=== PATIENT | female | born 1945 | race Caucasian/White ===

== ENCOUNTER 2018-03-27 15:30 | Outpatient (RCR) | payer MEDICARE, OTHER, SELFPAY | END 2018-04-08 16:00 | disposition home or self-care (01) | LOC: PT 15:30 | PROVIDERS: Visit Provider Orthopaedic Surgery | DX: M51.36 Other intervertebral disc degeneration, lumbar region (principal); M50.30 Other cervical disc degeneration, unspecified cervical region | CPT/HCPCS: 97014; 97110; 97163; G0283 ==

== ENCOUNTER → 2018-09-18 12:37 | Outpatient (CLI) | payer MEDICARE, OTHER, SELFPAY ==
--- NOTE | 2018-09-18 12:45 | XR_ITS ---
XR DEXA axial skeleton HISTORY: ITS.REASON: OSTEOPENIA ORDERING PHYSICIAN: Amber Rawls PATIENT AGE: 73 years COMPARISON: 09/01/2012 FINDINGS: The BMD measured at the Right femoral neck is 0.856 g/cm squared with a T score of -1.3. This is considered Osteopenic according to the World Health Organization criteria. Fracture risk is Moderate. Treatment is advised. The L1 L4 density has a T score -0.4 enhanced decreased by 2%. The overall mean hip density has decreased by 4.5 IMPRESSION: Osteopenia with moderate fracture risk. Treatment is advised. Suggest follow-up exam August 2020
== END ==
PROVIDERS: PCP Family Medicine; Visit Provider Family Medicine
DX: M85.89 Other specified disorders of bone density and structure, multiple sites (principal)
CPT/HCPCS: 77080

== ENCOUNTER → 2018-10-02 12:53 | Outpatient (CLI) | payer MEDICARE, OTHER, SELFPAY ==
--- NOTE | 2018-10-02 13:01 | XR_ITS ---
XR chest 2V HISTORY: ITS.REASON: CHEST PAIN ORDERING PHYSICIAN: Amber Rawls PATIENT AGE: 73 years COMPARISON: 01/25/2015 FINDINGS: The cardiomediastinal silhouette and pulmonary vascularity are within normal limits. The lungs are clear without infiltrates, suspicious nodules, or pleural effusions. There is mild mid thoracic curvature convex right. There is mild thoracic kyphosis not significantly changed. No acute bony abnormalities. IMPRESSION: No change with no acute finding
--- NOTE | 2018-10-02 13:01 | US_ITS ---
US breast RT complete INDICATION: Tenderness of left breast, history of breast cancer with mastectomy ORDERING PHYSICIAN: Amber Rawls PATIENT AGE: 73 years COMPARISON: None TECHNIQUE: Right breast ultrasound with axilla FINDINGS: No solid or cystic masses are evident. Patient has had a prior mastectomy with breast implant present. IMPRESSION: No suspicious lesions apparent by ultrasound. Prior mastectomy with implant present BI-RADS Category: 2 Benign Finding(s) Follow-up suggested as clinically warranted. Correlation with physical exam needed. (A letter has been sent to the patient regarding results of the study.)
== END ==
PROVIDERS: PCP Family Medicine; Visit Provider Family Medicine
DX: N64.4 Mastodynia (principal); Z85.3 Personal history of malignant neoplasm of breast
CPT/HCPCS: 71046; 76641

== ENCOUNTER → 2019-03-03 12:52 | Outpatient (POV) | payer MEDICARE, OTHER, SELFPAY | PROVIDERS: Visit Provider Dermatology | DX: Z00.00 Encounter for general adult medical examination without abnormal findings (principal) ==

== ENCOUNTER → 2019-12-18 10:01 | Outpatient (CLI) | payer MEDICARE, OTHER, SELFPAY ==
--- NOTE | 2019-12-18 | US_ITS ---
APPROVED REPORT Exam Type: Lower Extremity Segmental Pressures Digital Product Manager: Lashay Lopez RT(R) Indications Claudication: Bilaterally Current Smoker PAIN SAM LE'S Risk Factors Hypertension CAD Hyperlipidemia TIA/CVA History Pressures/Indices Right Indices Left Indices Brachial 158.00 mmHg Brachial 164.00 mmHg Low Thigh 146.00 mmHg 0.89 Low Thigh 153.00 mmHg 0.93 Calf 165.00 mmHg 1.01 Calf 163.00 mmHg 0.99 Ankle(PT) 165.00 mmHg 1.01 Ankle(PT) 160.00 mmHg 0.98 Ankle(DP) 160.00 mmHg 0.98 Ankle(DP) 157.00 mmHg 0.96 Digit 90.00 mmHg 0.55 Digit 113.00 mmHg 0.69 Findings RT MELECIO:1.01 LT MELECIO:0.98 RT TBI:0.55 LT TBI:0.69 NORMAL PULSES BILATERAL NORMAL WAVEFORMS BILATERAL Conclusion RT MELECIO:1.01 LT MELECIO:0.98 RT TBI:0.55 LT TBI:0.69 NORMAL PULSES BILATERAL NORMAL WAVEFORMS BILATERAL Normal appearing resting noninvasive lower extremity arterial study. Electronically signed by : César Archibald MD 12/18/2019 15:47:37
== END ==
PROVIDERS: PCP Family Medicine; Visit Provider Orthopaedic Surgery
DX: I73.9 Peripheral vascular disease, unspecified (principal)
CPT/HCPCS: 93923

== ENCOUNTER → 2020-02-11 13:31 | Outpatient (CLI) | payer MEDICARE, OTHER, SELFPAY ==
--- NOTE | 2020-02-11 13:38 | XR_ITS ---
PROCEDURE: XR CHEST 2V CLINICAL HISTORY: COUGH Cough and chest soreness, history of breast cancer, smoker COMPARISON: CR CXR CHEST(2 VIEWS-NOT PORTABLE) from 06/16/2012 CT CTAC CTA-CHEST from 06/18/2012 CR CXR CHEST(2 VIEWS-NOT PORTABLE) from 03/28/2013 CR CXR CHEST(2 VIEWS-NOT PORTABLE) from 01/25/2015 FINDINGS: The cardiomediastinal silhouette and pulmonary vascularity are within normal limits. Attenuation is present in the lower lung zones bilaterally from breast implants. No lobar consolidation or collapse. Calcified granuloma is present in the left lower lobe. Thoracic kyphosis with multilevel thoracic degenerative changes. No acute fracture or dislocation. IMPRESSION: No change with no acute finding. Dictated by: César Archibald MD 02/11/2020 14:25 César Archibald MD in [place] 02/11/2020 14:25
== END ==
PROVIDERS: PCP Family Medicine; Visit Provider Family Medicine
DX: R05 Cough (principal); R07.9 Chest pain, unspecified
CPT/HCPCS: 71046

== ENCOUNTER 2020-08-09 13:00 | Outpatient (RCR) | payer MEDICARE, OTHER, SELFPAY | END 2020-08-30 13:47 | disposition home or self-care (01) | LOC: PT.CARL 13:00 | PROVIDERS: PCP Family Medicine; Visit Provider Orthopaedic Surgery | DX: M25.571 Pain in right ankle and joints of right foot (principal) | CPT/HCPCS: 97110; 97116; 97140; 97163 ==

== ENCOUNTER → 2020-10-24 10:30 | Outpatient (CLI) | payer MEDICARE, OTHER, SELFPAY ==
--- NOTE | 2020-10-24 10:33 | XR_ITS ---
PROCEDURE: XR DEXA AXIAL SKELETON CLINICAL HISTORY: ANKLE FRACTURE, SCREENING FOR OSTEOPOROSIS COMPARISON: No exams were available for comparison FINDINGS: The right hip BMD is 0.785 with a T-score of -0.6. The left hip BMD is 0.741 with a T-score of -1.0. The lumbar spine BMD is 0.983 with a T-score of -0.6. IMPRESSION: This patient is considered normal according to the World Health Organization criteria. Fracture risk is low. Based on these results a follow-up exam is recommended in 2 year. Dictated by: César Archibald MD 10/24/2020 20:32 César Archibald MD in [place] 10/25/2020 08:14
--- NOTE | 2020-10-24 10:34 | XR_ITS ---
PROCEDURE: XR CHEST 2V CLINICAL HISTORY: COUGH Smoker COMPARISON: CT CTAC CTA-CHEST from 06/18/2012 CR CXR CHEST(2 VIEWS-NOT PORTABLE) from 03/28/2013 CR CXR CHEST(2 VIEWS-NOT PORTABLE) from 01/25/2015 CR XR CHEST 2V from 02/11/2020 FINDINGS: The cardiomediastinal silhouette and pulmonary vascularity are within normal limits. Bilateral breast implants. Minimal atelectatic or fibrotic change in the left lung base. Degenerative changes thoracic spine with mild kyphosis IMPRESSION: Minimal left basilar atelectatic or fibrotic change otherwise negative Dictated by: César Archibald MD 10/24/2020 12:38 César Archibald MD in [place] 10/24/2020 12:38
== END ==
PROVIDERS: PCP Family Medicine; Visit Provider Family Medicine
DX: R05 Cough (principal); Z13.820 Encounter for screening for osteoporosis; Z78.0 Asymptomatic menopausal state; M25.571 Pain in right ankle and joints of right foot
CPT/HCPCS: 71046; 77080

== ENCOUNTER → 2021-01-30 14:53 | Outpatient (POV) | payer MEDICARE, OTHER, SELFPAY ==
[2021-01-30 15:34] VITALS: BP 132/65; PULSE 63; RESP 18; O2SAT 97; BMI 22.3
--- NOTE | 2021-01-31 08:20 | HMH.PMCON ---
Assessment and Plan (1) Low back pain Status: Chronic Category: Medical Code(s): M54.50 - Low back pain, unspecified (2) Lumbar radiculopathy Status: Chronic Category: Medical Code(s): M54.16 - Radiculopathy, lumbar region - Assessment and plan all Dx Assessment and Plan for all problems:: The patient has reported that she has taken Lyrica and gabapentin in the past with no significant relief. She is on Plavix and unable to take anti-inflammatories. She has tried physical therapy greater than 6 weeks and continues with home stretching and ice and heat therapies. The patient has also tried injections with no relief. Patient was very difficult to have a conversation with today, as she was unable to focus or answer questions appropriately today. Per the patient's own admission, she would fail a drug test today due to recent medications that she has taken. She was unable to verbalize the type of medication that she did take. Patient was advised we will not be prescribing oral medications. We will send her for psychological evaluation to determine if she is an appropriate candidate for spinal cord stimulation. Patient will not be a candidate for intrathecal therapy, as she did admit to taking medication inappropriately today. We will see her back after her psychological evaluation. We will request the patient's MRI from [facility]. We did not receive the patient's MRI in her referral packet. Patient has been instructed to contact the clinic with any concerns before the next appointment. Dr. Wynn has reviewed this note and agrees with this plan of care. This note was dictated using voice recognition software and make contain errors or omissions. HPI - Data of Consult Patient: new to practice Consult date: 01/30/21 Requesting Physician: Peyton Shah APRN - Consult Narrative Reason for consult: Back pain, foot pain History of present illness: Ms. Acuna is a 76 year old female who presents today for consultation for chronic low back bilateral foot pain. The patient was referred to us by Reyna Dee. Patient was previously seen by Dr. Ho in [facility] for pain management. Patient reports that the provider that she was previously seeing has relocated to [facility]. As a result, the patient did not want to travel to [place] to be seen. Patient says she has had chronic low back pain for many years. The pain does radiate into bilateral lower extremities and feet. While she does have significant back pain, she says most of her pain is in her feet. She describes the pain as throbbing and burning in nature. She says that she has had injections in the past which did not give her any relief. She is unable to verify the type of injections that she has had. She also says that she has tried ice and heat therapies as well as continued home stretching. She is on Plavix therapy and is unable to take anti-inflammatories. Patient immediately reports during conversation that she will follow drug test if tested today. Patient is unable to verify that the medication that she did take. She says that it was left upper medicine . Patient has been advised that we will not be prescribing oral medications. Patient is difficult to carry a conversation with today, as she is unable to focus on tasks at hand or questions being asked of her. She is very vague in answering questions. She does report that she has had imaging performed, however we only received an x-ray of the patient's ankle from 10/24/2020. Patient says that she is unsure if she would like to proceed with any type of injective therapy since she did not get relief in the past. She does rate her pain an 8 out of 10 today. She says that she was given information regarding spinal cord stimulation at her previous pain management clinic and would like to pursue this. CC: Peyton Shah APRN [facility] History I have reviewed the patient's past medical histo
== END ==
PROVIDERS: Visit Provider Clinical Nurse Specialist Family Health
DX: M54.50 Low back pain, unspecified (principal); M54.16 Radiculopathy, lumbar region
CPT/HCPCS: 99202; G0463

== ENCOUNTER → 2021-02-06 14:08 | Outpatient (CLI) | payer MEDICARE, OTHER, SELFPAY | PROVIDERS: Visit Provider Surgery | DX: Z01.812 Encounter for preprocedural laboratory examination (principal); Z20.822 Contact with and (suspected) exposure to COVID-19; Z12.11 Encounter for screening for malignant neoplasm of colon | CPT/HCPCS: C9803; U0003; U0005 ==

== ENCOUNTER 2021-02-09 08:26 | Day surgery (SDC) | payer MEDICARE, OTHER, SELFPAY ==
[2021-02-07 09:39] VITALS: BMI 21.7
[2021-02-09 08:48] VITALS: BP 127/73; PULSE 81; RESP 16; TEMP 36.6; O2SAT 95
[2021-02-09 09:50] VITALS: BP 109/59; PULSE 81; RESP 18; TEMP 36.1; O2SAT 98
--- NOTE | 2021-02-09 09:50 | HMH.SCOPE ---
- Procedure: Date: 02/09/21 Patient Date of :: 1945 Procedure Performed:: Colonoscopy with polypectomy by means other than snare Indications:: History of large complex adenomatous polyp of the right colon status post snare excision/tattoo. Residual adenomatous changes noted on follow-up colonoscopy. Most recent colonoscopy (December 2018) revealed no residual adenomatous changes. Performing Provider:: Woodrow Tyson MD Referring Provider:: . Sedation:: Monitored anesthesia care Procedure:: After informed consent was obtained the patient was taken to the endoscopy suite. Sedation ensued after the patient was transferred to the left lateral decubitus position. Pulse, blood pressure, and oxygen saturation were monitored throughout the procedure. Digital rectal exam revealed no significant abnormality. The colonoscope was placed in position. The entire colon was evaluated. The colonoscope was carefully removed and the patient was transferred to recovery in stable condition. Please see findings and specimens below for detail. Findings:: Bowel preparation relatively fair Fairly significant spasticity/tortuosity Small right colon polyp Tattoo site appeared normal Specimens:: Small right colon polyp Recommendations:: Timing of repeat colonoscopy is pending pathology but will likely be around 3 years secondary to history of large complex polyps. Complications:: No immediate Estimated blood obtained (mL): 1
[2021-02-09 09:54] VITALS: O2SAT 94
[2021-02-09 10:00] VITALS: BP 118/65; PULSE 80; RESP 18; O2SAT 98
[2021-02-09 10:15] VITALS: BP 136/75; PULSE 92; RESP 18; O2SAT 97
--- NOTE | 2021-02-09 13:43 | P.PN_ITS ---
[facility] Anesthesia Checklist - Structural Data Admitted From: Home Planned Operative Procedure/s: colonoscopy Consent for Planned Operative Procedure(s) Verified: Yes - Additional verifications Anesthesia Reactions: No - Airway Assessment C-Spine Mobility Assessed: Yes TMJ Mobility Assessed: Yes Dentition: Good Dentition - Neurological Assessment Level of Consciousness: Awake, Alert, Appropriate - Anesthesia Plan Anesthesia Risk discussed: Yes ASA Class: III Anesthesia Type: MAC [facility] History I have reviewed the patient's past medical history: Yes Medical History: Reports:: Anxiety, Cancer (breast cancer), Cerebrovascular Accident, Hyperlipidemia, Hypertension Denies:: Diabetes Mellitus Type 1, Diabetes Mellitus Type 2, Internal Pacemaker, Lung Disease, MRSA, Seizures *Have you ever received a pneumonia vaccine?: Yes *Have you received a flu vaccine this season?: No Other Medical History: Reports: Arthritis, Other Anesthesia experience/problems:: none Laterality Cases: Bilateral: Breast Biopsy, Lumpectomy, Mastectomy Other Surgeries: Yes: No Previous Surgery, Appendectomy, Cancer Surgery, Cholecystectomy, Colonoscopy, EGD, Other. No: Pacemaker Amputation: No Fractures: Yes (rt ankle) - *Social History Last grade of school completed: Advanced degree Smoking Status: Current every day smoker Tobacco Type: cigarettes # Packs/Day (cigarettes): 1 Alcohol Intake: never Alcohol Intake Frequency:: holidays/special occasions only Substance Use Type: denies use *Occupational Status:: retired Housing: house Household Members: none *Travel in the last 8 weeks: None - Psychiatric History Pschychiatric History:: Reports:: Anxiety Family Hx:: Cancer
== END 2021-02-09 10:22 | disposition home or self-care (01) ==
LOC: OUTP 08:31
PROVIDERS: PCP Family Medicine; Visit Provider Surgery
PROC: 0DJD8ZZ Inspection of Lower Intestinal Tract, Via Natural or Artificial Opening Endoscopic (ICD-10-PCS; principal; 2021-02-09 09:30)
DX: Z12.11 Encounter for screening for malignant neoplasm of colon (principal); K58.9 Irritable bowel syndrome, unspecified; K63.5 Polyp of colon; Z86.010 Personal history of colon polyps; F41.9 Anxiety disorder, unspecified; E78.5 Hyperlipidemia, unspecified; I10 Essential (primary) hypertension; M19.90 Unspecified osteoarthritis, unspecified site; Z85.3 Personal history of malignant neoplasm of breast; Z86.73 Personal history of transient ischemic attack (TIA), and cerebral infarction without residual deficits; Z72.0 Tobacco use; Z80.9 Family history of malignant neoplasm, unspecified
CPT/HCPCS: 45380; 88305

== ENCOUNTER → 2021-03-27 08:59 | Outpatient (POV) | payer MEDICARE, OTHER, SELFPAY ==
[2021-03-27 09:13] VITALS: BP 153/76; PULSE 69; RESP 18; O2SAT 96; BMI 21.9
--- NOTE | 2021-03-27 09:24 | HMH.PAINSOAP ---
[facility] Pain Management SOAP Note Subjective:: Patient is a pleasant 76-year-old female who comes in here today for follow-up. Patient is currently being treated for chronic low back pain, degenerative disease of lumbar spine with lumbar radiculopathy. Patient was last seen here on January 30, 2021 where we discussed that she is a good candidate for spinal cord stimulator. Patient has tried and failed injective therapy, oral medications, and physical therapy for greater than 6 weeks. Patient is on plavix and it is contraindicated to give the patient any anti-inflammatories. We have been referred the patient for psychiatric eval for the spinal cord stimulator and has been deemed appropriate for the spinal cord stimulator. Patient is currently not a surgical candidate per neurosurgery. Today, patient is still complaining of chronic pain. She says that she is almost out of her norco that is an old prescription. I have talked to the patient that we don't typically order oral medications to our patients. Patient rates her pain as 6/10 today. Her Patrick is [phone] with an active morphine equivalent of 0. Review of Systems General: No recent weight changes, no fever, no sleep disturbances Respiratory: No cough, no shortness of air, no recurring pulmonary infections Cardiovascular/peripheral vascular: No chest pain, no palpitations, no edema, no shortness of breath Gastrointestinal: No new onset incontinence, normal bowel movements reported Genitourinary: No new onset incontinence Musculoskeletal: Low back pain leg pain Psychiatric: [Normal mood/affect] Neurological: [Denies weakness in extremities], [denies balance issues] Objective:: Physical exam General: Alert and oriented x3, no acute distress, pleasant and cooperative Lungs: Respirations even and unlabored, symmetrical chest expansion Eyes: PERRL Musculoskeletal: Flexion and extension of lumbar [spine] somewhat guarded secondary to pain, [antalgic gait noted] Neurological: Speech clear, no gross sensory deficit Assessment:: Degenerative disc disease of the lumbar spine with lumbar radiculopathy Chronic low back pain Plan:: Patient has tried and failed injective therapy, oral medications, and physical therapy for greater than 6 weeks. Patient's psychiatric eval is appropriate for spinal cord stimulator patient has been scheduled. We will schedule the patient for a spinal cord stimulator trial. Patient is currently on Plavix. We will reach out to Dr. Amber Rawls to get a letter to see i the patient can stop the Plavix for 7 days before the procedure. Risk and benefits of this procedure has been discussed with the patient. Patient has been instructed to contact the clinic with any concerns before the next appointment. Dr. Wynn has reviewed this note and agrees with this plan of care. This note was dictated using voice recognition software and make contain errors or omissions. [facility] History Medical History: Reports:: Anxiety, Cancer, Cerebrovascular Accident, Hyperlipidemia, Hypertension Denies:: Diabetes Mellitus Type 1, Diabetes Mellitus Type 2, Internal Pacemaker, Lung Disease, MRSA, Seizures *Have you ever received a pneumonia vaccine?: Yes *Have you received a flu vaccine this season?: Yes Other Medical History: Reports: Arthritis, Other Laterality Cases: Bilateral: Breast Biopsy, Lumpectomy, Mastectomy Other Surgeries: Yes: No Previous Surgery, Appendectomy, Cancer Surgery, Cholecystectomy, Colonoscopy, EGD, Other. No: Pacemaker Amputation: No Fractures: Yes (rt ankle) - *Social History Smoking Status: Current every day smoker Tobacco Type: cigarettes # Packs/Day (cigarettes): 1 Alcohol Intake: never Alcohol Intake Frequency:: holidays/special occasions only Substance Use Type: denies use *Occupational Status:: unemployed Housing: house Household Members: none *Travel in the last 8 weeks: None - Psychiatric History Pschychiatric History:: Reports:: Anx
== END ==
PROVIDERS: Visit Provider Clinical Nurse Specialist Family Health
DX: M51.16 Intervertebral disc disorders with radiculopathy, lumbar region (principal)
CPT/HCPCS: 99212; G0463

== ENCOUNTER 2021-04-03 13:45 | Emergency (ER) | payer MEDICARE, OTHER, SELFPAY ==
[2021-04-03 14:32] VITALS: BP 131/74; PULSE 64; RESP 18; TEMP 37.1; O2SAT 97; BMI 21.9
--- NOTE | 2021-04-03 15:00 | HMH.EDGENADL ---
ED Disposition Clinical Impression: Lumbar radiculopathy Disposition: Home, Self-Care Condition on Discharge: Good Instructions: DI for Chronic Pain -- Adult Additional Instructions: Follow-up with your primary care physician as well as your pain doctor for continuity of care. Return to ED with new, worsening, concerning symptoms. Okay to take Tylenol, Motrin as needed for mild to moderate pain. Referrals: Amber Rawls [Primary Care Provider] - - Critical Care Critical Care Time: No Attestation: On 04/03/21, the high probability of a clinically significant, sudden or life threatening deterioration of the following system(s) required my full and direct attention, intervention and personal management. The time I documented below is in addition to time spent performing reported procedures but includes the following listed in this critical care notation. Medical Decision Making - Medical Records Medical records reviewed: Yes: I reviewed the patient's medical records. - Patrick Inquiry Pt receiving controlled substance: No Vital Signs: 04/03/21 14:32 Temperature 98.7 F Temperature Source Oral Pulse Rate [Left Radial] 64 Respiratory Rate 18 Blood Pressure [Right Arm] 131/74 Blood Pressure Mean [Right Arm] 93 Blood Pressure Source [Right Arm] Automatic Cuff Blood Pressure Position [Right Arm] Sitting 02 Sat by Pulse Oximetry 97 Oxygen Delivery Method Room Air Orders (Tests/Meds): ED MEDICATIONS Discontinued Medications Generic Name Dose Route Start Last Admin Trade Name Peter PRN Reason Stop Dose Admin Dexamethasone 10 mg 04/03/21 14:59 04/03/21 15:06 Dexamethasone 4mg Tablet PO 04/03/21 15:00 10 mg ONCE ONE Administration Oxycodone HCl 5 mg 04/03/21 14:59 04/03/21 15:12 Oxycodone 5mg Immediate Release Tablet PO 04/03/21 15:00 5 mg ONCE ONE Administration Medical Decision Narrative: 76-year-old female with past medical history of chronic lower back pain, lumbar radiculopathy presenting with lower back pain, sciatica-like symptoms. Differential diagnoses include lumbar radiculopathy, sciatica, musculoskeletal pain, chronic lower back pain. Given this work-up will include physical exam. Patient has reassuring physical exam, no saddle anesthesia, no focal neurological deficits. Labs, imaging studies not currently dictated. Gave 5 mg oral Tavernier, 10 mg oral Decadron. Patient reports improvement in her pain after receiving medications, this point she is here for discharge. She will follow-up with her primary doctor as well as her pain doctor. General Adult HPI - General Chief complaint: PAIN Stated complaint: lower back , leg and feet pain Time Seen by Provider: 04/03/21 14:45 Mode of Arrival: Ambulatory Source of Information: Patient Limitations: No Limitations Description of Symptoms (Recalled from ER Triage Doc. by RN): pt to ed c/o lower back pain. pt states she has chronic lower back pain and is scheduled to have a pain pump procedure on 04/11. pt states she needs pain relief until then. pt states she has not taken medication at home to help. - History of Present Illness HPI narrative: 76-year-old female with past medical history of chronic lower back pain, lumbar radiculopathy presenting with lower back pain, sciatica-like pain in bilateral legs. Patient states that she is scheduled to receive a spinal cord stimulator on 04/12 at an outside facility. She is not currently taking any analgesia medications at home. She denies chest pain, shortness of air, recent fevers or chills, recent falls or trauma. She has no saddle anesthesia, no urinary incontinence or bowel incontinence. States that she has sharp pain going down both legs along with lower back pain. Patient does not have any further complaints or concerns. - Related Data Home Medications Medication Instructions Recorded Confirmed alprazolam 1 mg tablet 1 mg PO QHS tab 11/14/17 02/22/21 rachel
[2021-04-03 15:58] VITALS: BP 130/70; PULSE 66; RESP 16; TEMP 37.1; O2SAT 97
== END 2021-04-03 15:58 | disposition home or self-care (01) ==
PROVIDERS: Emergency Provider Emergency Medicine; PCP Family Medicine
DX: M54.16 Radiculopathy, lumbar region (principal); I10 Essential (primary) hypertension; E78.5 Hyperlipidemia, unspecified; Z86.73 Personal history of transient ischemic attack (TIA), and cerebral infarction without residual deficits; F17.210 Nicotine dependence, cigarettes, uncomplicated; F41.9 Anxiety disorder, unspecified
CPT/HCPCS: 99281

== ENCOUNTER → 2021-04-18 10:50 | Outpatient (CLI) | payer MEDICARE, OTHER, SELFPAY ==
[2021-04-18 11:30] LABS: Basophils # 0.1 K/mm3 (0-0.2); Basophils % 1.6 % (0.1-2.0); Eosinophils # 0.1 K/mm3 (0.0-0.4); Eosinophils % 1.7 % (0.1-12.0); Hematocrit 46.5 % (37.0-47.0); Hemoglobin 15.3 g/dL (12.2-16.2); Lymphocytes # 1.7 K/mm3 (0.7-4.5); Lymphocytes % 23.4 % (10-50); Mean Corpuscular HGB Conc 32.8 g/dL (31.8-35.4); Mean Corpuscular Hemoglobin 32.3 pg (27.0-31.2); Mean Corpuscular Volume 98.4 fl (81-99); Mean Platelet Volume 8.5 fl (7.4-10.4); Monocytes # 0.4 K/mm3 (0.1-1.0); Monocytes % 4.8 % (1.7-9.3); Neutrophils % 68.5 % (37.0-80.0); Platelet Count 247 K/mm3 (142-424); Red Blood Count 4.72 M/mm3 (4.20-5.40); Red Cell Distribution Width 13.7 % (11.5-17.5); White Blood Count 7.3 K/mm3 (4.8-10.8)
[2021-04-18 12:02] LABS: Chloride 99 mmol/L (98-107); Sodium 135 mmol/L (136-145)
[2021-04-18 12:03] LABS: Potassium 4.7 mmoL/L (3.5-5.1)
[2021-04-18 12:05] LABS: Blood Urea Nitrogen 8 mg/dl (7-17); Estimated Glomerular Filt Rate 70 ml/min (>60); GFR (African American) 84 ML/MIN (>60)
[2021-04-18 12:06] LABS: Anion Gap 10.7 mEq/L (5-15); Calcium 9.5 mg/dl (8.4-10.2); Carbon Dioxide 30 mmol/L (22.0-30.0); Glucose 102 mg/dl (74-100)
== END ==
PROVIDERS: Visit Provider Anesthesiology
DX: Z01.812 Encounter for preprocedural laboratory examination (principal); Z11.52 Encounter for screening for COVID-19; M51.36 Other intervertebral disc degeneration, lumbar region
CPT/HCPCS: 36415; 80048; 85025; C9803; U0003; U0005

== ENCOUNTER 2021-04-19 06:38 | Day surgery (SDC) | payer MEDICARE, OTHER, SELFPAY ==
[2021-04-18 08:57] VITALS: BMI 22.4
[2021-04-19] VITALS (8 sets, daily range): BP systolic 92–132; BP diastolic 55–75; PULSE 55–70; RESP 16–18; TEMP 36.1–36.4; O2SAT 94–100
--- NOTE | 2021-04-19 08:23 | P.PN_ITS ---
[facility] Anesthesia Checklist - Patient Identification Patient Identification: Arm Band - Structural Data Admitted From: Home Planned Operative Procedure/s: Spinal cord stimulator trial Consent for Planned Operative Procedure(s) Verified: Yes - NPO Status Verified Time NPO: 00:00 - Additional verifications Anesthesia Reactions: No Hx Blood Transfusions: No Blood Transfusion Reaction: No - Airway Assessment C-Spine Mobility Assessed: Yes TMJ Mobility Assessed: Yes Dentition: Dentures-good fit - Neurological Assessment Level of Consciousness: Awake Hx Seizures: No Numbness or tingling in extremities: No - Anesthesia Plan Anesthesia Risk discussed: Yes Anesthesia Plan: Verified ASA Class: III Anesthesia Type: MAC [facility] History I have reviewed the patient's past medical history: Yes Medical History: Reports:: Anxiety, Cancer (BREAST CA), Cerebrovascular Accident, Hyperlipidemia, Hypertension Denies:: Diabetes Mellitus Type 1, Diabetes Mellitus Type 2, Internal Pacemaker, Lung Disease, MRSA, Seizures *Have you ever received a pneumonia vaccine?: Yes *Have you received a flu vaccine this season?: Yes Other Medical History: Reports: Arthritis, Other. Denies: Blood Transfusion Reaction Anesthesia experience/problems:: None Laterality Cases: Bilateral: Breast Biopsy, Lumpectomy, Mastectomy Other Surgeries: Yes: No Previous Surgery, Appendectomy, Cancer Surgery, Cholecystectomy, Colonoscopy, EGD, Other. No: Pacemaker Amputation: No Fractures: Yes (rt ankle) - *Social History Smoking Status: Current every day smoker Tobacco Type: cigarettes # Packs/Day (cigarettes): 1 Alcohol Intake: never Alcohol Intake Frequency:: holidays/special occasions only Substance Use Type: denies use *Occupational Status:: retired Housing: house Household Members: none *Travel in the last 8 weeks: None - Psychiatric History Pschychiatric History:: Reports:: Anxiety Family Hx:: Cancer
--- NOTE | 2021-04-19 11:42 | HMH.OPNOTE ---
Date of procedure: 04/19/21 Pre-op Diagnosis:: Degenerative disc disease of lumbar spine with lumbar radiculopathy symptoms Post-op Diagnosis:: Same Procedure performed:: Spinal cord stimulator trial with epidural lead placement x2 Surgeon:: Italo Wynn MD JOB DEVELOPER FOR DEAF ADULTS:: Feng Esposito Anesthesia: MAC Estimated blood loss (mL): 1 Clinical Note:: This patient is a pleasant 76-year-old white female who we are treating for low back pain with lumbar radiculopathy symptoms. Patient has tried and failed injective therapy, oral medications, physical therapy she has been off of her Plavix for 1 week. She does have a successful psychological evaluation. She presents for spinal cord stimulator trial today. Also she is not an operative candidate. Most of her pain is in the back rating down both legs all the way to the feet. Operative findings:: None Operative note:: Informed consent was obtained and the risk and benefits of the procedure were explained to the patient. The patient was taken the operating room placed prone on the procedure table. She was prepped and draped in sterile fashion. C-arm fluoroscopy was used to view the lumbar spine. Skin and subcutaneous tissues were anesthetized using lidocaine. A 17-gauge epidural needle was inserted and advanced into the L2-L3 interspace. After confirmation needle placement in the epidural space stimulating lead was inserted and advanced very easily to the T7-T8-T9 vertebral body. The lead encompassed the lower half of the T7 vertebral body and upper half of the T10 vertebral body. Lead placement was checked in AP and lateral views. A second needle was inserted and advanced again into the L2-L3 interspace. Again after confirmation of needle placement in the epidural space a second stimulating lead was inserted and advanced again very easily to the T7-T8-T9 vertebral body. Again this lead encompassed the lower half of the T7 vertebral body and upper half of the T10 vertebral body. Lead placement was checked in AP and lateral views. The needles and stylets were removed. The leads were secured in place. Patient tolerated the procedure well with no complications. Patient was taken to recovery and programmed by the [employer] graphic art sales representative. Patient had good stimulation in all areas of pain. Patient was placed on a paresthesia free fast program. Patient was discharged home neurologically intact with good relief of pain symptoms. Plan and disposition: We will follow-up with this patient in 1 week for lead pull. We will continually follow-up with her every day to make adjustments if needed. 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 We will concentrate on programming to determine midline. If patient has any problems questions she is to call us back in the pain clinic. Condition: stable Disposition: PACU Complications:: None
== END 2021-04-19 11:55 | disposition home or self-care (01) ==
LOC: OR 06:40
PROVIDERS: PCP Family Medicine; Visit Provider Anesthesiology
DX: M51.16 Intervertebral disc disorders with radiculopathy, lumbar region (principal); F41.9 Anxiety disorder, unspecified; E78.5 Hyperlipidemia, unspecified; I10 Essential (primary) hypertension; Z85.3 Personal history of malignant neoplasm of breast; Z86.73 Personal history of transient ischemic attack (TIA), and cerebral infarction without residual deficits; Z79.899 Other long term (current) drug therapy; Z72.0 Tobacco use; Z90.49 Acquired absence of other specified parts of digestive tract; Z80.9 Family history of malignant neoplasm, unspecified
CPT/HCPCS: 63650 ×2; 96374; C1778; J3370

== ENCOUNTER → 2021-04-25 09:33 | Outpatient (POV) | payer MEDICARE, OTHER, SELFPAY ==
[2021-04-25 09:48] VITALS: BP 137/80; PULSE 65; RESP 18; O2SAT 97; BMI 21.9
--- NOTE | 2021-04-25 10:01 | HMH.PAINSOAP ---
[facility] Pain Management SOAP Note Subjective:: Patient is a pleasant 76-year-old female who comes in here today for a one week follow-up after a spinal cord stimulator trial. Patient is currently being treated for degenerative disc disease of lumbar spine lumbar radiculopathy, chronic low back. After the spinal cord stimulator trial, patient had significant relief of about 70 to 80%. [employer] personal financial representative is here today for evaluation and reprogramming. Patient would like to proceed with the permanent placement. We will remove her spinal cord leads today. Patient has tried and failed previous therapies such as injections, oral medications, and physical therapy for greater than 6 weeks in the past. Patient rates her pain today as 5 out of 10. Her migel number is [id number] with a morphine equivalent of 0. ORT score is 0, low risk. Review of Systems General: No recent weight changes, no fever, no sleep disturbances Respiratory: No cough, no shortness of air, no recurring pulmonary infections Cardiovascular/peripheral vascular: No chest pain, no palpitations, no edema, no shortness of breath Gastrointestinal: No new onset incontinence, normal bowel movements reported Genitourinary: No new onset incontinence Musculoskeletal: Low back pain Psychiatric: [Normal mood/affect] Neurological: [Denies weakness in extremities], [denies balance issues] Objective:: Physical exam General: Alert and oriented x3, no acute distress, pleasant and cooperative Lungs: Respirations even and unlabored, symmetrical chest expansion Eyes: PERRL Musculoskeletal: Flexion and extension of lumbar [spine] somewhat guarded secondary to pain, [antalgic gait noted] Skin: Two needle insertions has no drainage, edema, and erythema. Healing well. Neurological: Speech clear, no gross sensory deficit Assessment:: Generative disc disease of the lumbar spine with lumbar radiculopathy symptoms Chronic back pain Plan:: We will remove the spinal cord leads today. After the spinal cord stimulator trial, patient had significant relief of about 70-80%. Patient has tried and failed previous therapies such as injections, oral medication and physical therapy for greater than 6 weeks in the past. She would like to proceed with the permanent spinal cord stimulator placement. Risks and benefits of the procedure have been explained to the patient. Patient would like to proceed with the procedure. She will again have to stop her Plavix 7 days before her procedure. Patient has been instructed to contact the clinic with any concerns before the next appointment. Dr. Wynn has reviewed this note and agrees with this plan of care. This note was dictated using voice recognition software and make contain errors or omissions. [facility] History Medical History: Reports:: Anxiety, Cancer (BREAST CA), Cerebrovascular Accident, Hyperlipidemia, Hypertension Denies:: Diabetes Mellitus Type 1, Diabetes Mellitus Type 2, Internal Pacemaker, Lung Disease, MRSA, Seizures *Have you ever received a pneumonia vaccine?: No *Have you received a flu vaccine this season?: Yes Other Medical History: Reports: Arthritis, Other. Denies: Blood Transfusion Reaction Laterality Cases: Bilateral: Breast Biopsy, Lumpectomy, Mastectomy Other Surgeries: Yes: No Previous Surgery, Appendectomy, Cancer Surgery, Cholecystectomy, Colonoscopy, EGD, Other. No: Pacemaker Amputation: No Fractures: Yes (rt ankle) - *Social History Smoking Status: Current every day smoker Tobacco Type: cigarettes # Packs/Day (cigarettes): 1 Alcohol Intake: never Alcohol Intake Frequency:: holidays/special occasions only Substance Use Type: denies use *Occupational Status:: unemployed Housing: house Household Members: none *Travel in the last 8 weeks: None - Psychiatric History Pschychiatric History:: Reports:: Anxiety Family Hx:: Cancer
== END ==
PROVIDERS: Visit Provider Clinical Nurse Specialist Family Health
DX: M51.16 Intervertebral disc disorders with radiculopathy, lumbar region (principal); G89.29 Other chronic pain
CPT/HCPCS: 99212; G0463

== ENCOUNTER → 2021-05-09 10:55 | Outpatient (CLI) | payer MEDICARE, SELFPAY ==
[2021-05-09 11:33] LABS: Basophils # 0.2 K/mm3 (0-0.2); Basophils % 3.1 % (0.1-2.0); Eosinophils # 0.1 K/mm3 (0.0-0.4); Eosinophils % 1.2 % (0.1-12.0); Hematocrit 46.3 % (37.0-47.0); Hemoglobin 15.1 g/dL (12.2-16.2); Lymphocytes # 1.7 K/mm3 (0.7-4.5); Lymphocytes % 27.4 % (10-50); Mean Corpuscular HGB Conc 32.5 g/dL (31.8-35.4); Mean Corpuscular Hemoglobin 32.5 pg (27.0-31.2); Mean Corpuscular Volume 99.9 fl (81-99); Mean Platelet Volume 8.1 fl (7.4-10.4); Monocytes # 0.4 K/mm3 (0.1-1.0); Monocytes % 7.3 % (1.7-9.3); Neutrophils # 3.7 K/mm3 (1.8-7.8); Platelet Count 272 K/mm3 (142-424); Red Blood Count 4.64 M/mm3 (4.20-5.40); Red Cell Distribution Width 14.4 % (11.5-17.5); White Blood Count 6.1 K/mm3 (4.8-10.8)
[2021-05-09 12:03] LABS: Chloride 98 mmol/L (98-107); Sodium 131 mmol/L (136-145)
[2021-05-09 12:06] LABS: Blood Urea Nitrogen 11 mg/dl (7-17); Calcium 9.7 mg/dl (8.4-10.2); Carbon Dioxide 30 mmol/L (22.0-30.0); Estimated Glomerular Filt Rate 81 ml/min (>60); GFR (African American) 98 ML/MIN (>60); Glucose 92 mg/dl (74-100)
== END ==
PROVIDERS: Visit Provider Anesthesiology
DX: Z01.812 Encounter for preprocedural laboratory examination (principal); Z11.52 Encounter for screening for COVID-19; M51.36 Other intervertebral disc degeneration, lumbar region
CPT/HCPCS: 36415; 80048; 85025; C9803; U0003; U0005

== ENCOUNTER 2021-05-10 06:55 | Day surgery (SDC) | payer MEDICARE, SELFPAY ==
[2021-05-04 09:56] VITALS: BMI 21.9
[2021-05-10 07:13] VITALS: BP 129/105; PULSE 57; RESP 18; TEMP 36.1; O2SAT 98
--- NOTE | 2021-05-10 07:35 | P.PN_ITS ---
[facility] Anesthesia Checklist - Patient Identification Patient Identification: Arm Band, Verbal (Name & ) - Structural Data Admitted From: Home Planned Operative Procedure/s: Pain Pump Placement Consent for Planned Operative Procedure(s) Verified: Yes Verified Documents: Surgical Consent - NPO Status Verified Time NPO: 00:00 - Chart Verification Results Verified: CBC, BMP - Additional verifications Anesthesia Reactions: No Hx Blood Transfusions: No Blood Transfusion Reaction: No - Airway Assessment C-Spine Mobility Assessed: Yes TMJ Mobility Assessed: Yes Dentition: Dentures-good fit - Neurological Assessment Level of Consciousness: Awake, Alert, Appropriate - Anesthesia Plan Anesthesia Risk discussed: Yes ASA Class: III Anesthesia Type: MAC [facility] History I have reviewed the patient's past medical history: Yes Medical History: Reports:: Anxiety, Cancer, Cerebrovascular Accident, Hyperlipidemia, Hypertension Denies:: Diabetes Mellitus Type 1, Diabetes Mellitus Type 2, Internal Pacemaker, Lung Disease, MRSA, Seizures *Have you ever received a pneumonia vaccine?: No *Have you received a flu vaccine this season?: Yes Other Medical History: Reports: Arthritis, Other. Denies: Blood Transfusion Reaction Anesthesia experience/problems:: none Laterality Cases: Bilateral: Breast Biopsy, Lumpectomy, Mastectomy Other Surgeries: Yes: No Previous Surgery, Appendectomy, Cancer Surgery, Cholecystectomy, Colonoscopy, EGD, Other. No: Pacemaker Amputation: No Fractures: Yes (rt ankle) - *Social History Last grade of school completed: High school graduate Smoking Status: Current every day smoker Tobacco Type: cigarettes # Packs/Day (cigarettes): 1 Alcohol Intake: never Alcohol Intake Frequency:: holidays/special occasions only Substance Use Type: denies use *Occupational Status:: unemployed Housing: house Household Members: none *Travel in the last 8 weeks: None - Psychiatric History Pschychiatric History:: Reports:: Anxiety Family Hx:: Cancer
[2021-05-10 09:37] VITALS: BP 82/47; PULSE 50; RESP 20; TEMP 36.1; O2SAT 99
[2021-05-10 09:50] VITALS: BP 74/49; PULSE 52; RESP 18; O2SAT 98
--- NOTE | 2021-05-10 09:50 | HMH.OPNOTE ---
Date of procedure: 05/10/21 Pre-op Diagnosis:: Degenerative disc disease of lumbar spine with lumbar radiculopathy symptoms Post-op Diagnosis:: Degenerative disc disease of lumbar spine with lumbar radiculopathy symptoms Procedure performed:: Permanent placement spinal cord stimulator leads x2 and generator Surgeon:: Italo Wynn MD AUTOMATION CONTROLS EXPERT:: Other Anesthesia: MAC Estimated blood loss (mL): 5 Clinical Note:: Patient is a pleasant 76-year-old white female who we are treating for low back pain and lumbar radiculopathy symptoms. She has tried and failed all injective therapy, oral medications and physical therapy. She has been off her Plavix for over a week now. She has had a successful spinal cord stimulator trial and a successful psychological evaluation. She presents for permanent placement of a spinal cord stimulator today. Operative findings:: None Operative note:: Informed consent was obtained the risk and benefits of the procedure were explained to the patient. Patient was taken the operating room placed prone on the procedure table. She was prepped and draped in sterile fashion. C-arm fluoroscopy was used to view the lumbar spine. The skin and subcutaneous tissues adjacent to the L3-L4 L4-L5 interspace were anesthetized using lidocaine. I made an incision and dissected down to the lumbar paraspinous fascia. A 17-gauge epidural needle was inserted and advanced into the L2-L3 interspace. After confirmation needle placement in the epidural space stimulating lead was inserted and advanced very easily to the T9-T10 vertebral body. This is where her best programming was during the trial. A second needle was then inserted and advanced again into the L2-L3 interspace. Again after confirmation needle placement in the epidural space a second stimulating lead was inserted and advanced to the T9-T10 vertebral body. These leads were checked in AP and lateral views. The leads were secured to the fascia with anchor devices and 2-0 Prolene. I then created the generator pocket and tunneled the leads from the back to the generator pocket. I attached the leads to the generator. Impedances were checked and found to be okay. Both incisions were irrigated with bacitracin solution. Both incisions were then closed with 2-0 Vicryl followed by 4-0 nylon. A wound VAC was placed over both incisions. The patient was placed in an abdominal binder taken recovery in stable condition. The patient tolerated the procedure well with no complications. Patient was programmed by the [employer] insurance claim representative with good stimulation in all areas of pain. She was placed on a paresthesia free fast program. Patient was discharged home neurologically intact with good relief of pain symptoms. Plan and disposition: Follow-up with this patient in 1 week for wound check and reprogramming. We will follow-up in 2 weeks for suture removal and reprogram again. If patient has any problems questions she is to call us back in the pain clinic. Condition: stable Disposition: PACU Complications:: None
[2021-05-10 10:05] VITALS: BP 143/77; PULSE 62; RESP 18; O2SAT 98
[2021-05-10 10:35] VITALS: BP 127/78; PULSE 64; RESP 18; O2SAT 98
[2021-05-10 10:51] VITALS: BP 136/72; PULSE 62; RESP 18; O2SAT 99
== END 2021-05-10 10:35 | disposition home or self-care (01) ==
LOC: OR 06:57
PROVIDERS: PCP Family Medicine; Visit Provider Anesthesiology
DX: M51.16 Intervertebral disc disorders with radiculopathy, lumbar region (principal); F41.9 Anxiety disorder, unspecified; E78.5 Hyperlipidemia, unspecified; I10 Essential (primary) hypertension; Z86.73 Personal history of transient ischemic attack (TIA), and cerebral infarction without residual deficits; Z85.3 Personal history of malignant neoplasm of breast; Z79.899 Other long term (current) drug therapy; Z72.0 Tobacco use; Z80.9 Family history of malignant neoplasm, unspecified
CPT/HCPCS: 63650 ×2; 63685; 96374; C1778; C1820; J3370

== ENCOUNTER → 2021-05-16 09:38 | Outpatient (POV) | payer MEDICARE, OTHER, SELFPAY ==
[2021-05-16 09:59] VITALS: BP 140/73; PULSE 70; RESP 20; TEMP 35.8; O2SAT 96; BMI 21.9
--- NOTE | 2021-05-16 10:24 | HMH.PAINSOAP ---
[facility] Pain Management SOAP Note Subjective:: Patient is a 76-year-old white female who presents today for follow-up after a spinal cord stimulator implant. She says that she has had significant soreness around the incision site. Today, she rates her pain a 6 out of 10. She will have her wound VAC removed today. Most of the patient's pain at this time is due to incisional pain. Review of Systems General: No recent weight changes, no fever, no sleep disturbances Respiratory: No cough, no shortness of air, no recurring pulmonary infections Cardiovascular/peripheral vascular: No chest pain, no palpitations, no edema, no shortness of breath Gastrointestinal: No new onset incontinence, normal bowel movements reported Genitourinary: No new onset incontinence Musculoskeletal: Right low back pain Psychiatric: [Normal mood/affect] Neurological: [Denies weakness in extremities], [denies balance issues] Objective:: Physical exam General: Alert and oriented x3, no acute distress, pleasant and cooperative Lungs: Respirations even and unlabored, symmetrical chest expansion Eyes: PERRL Musculoskeletal: Flexion and extension of lumbar [spine] somewhat guarded secondary to pain, [antalgic gait noted] Neurological: Speech clear, no gross sensory deficit Skin: Incision well approximated, no redness, no drainage, no edema to the incision sites, skin tear noted to previous site of tape with wound VAC Assessment:: Degenerative disc disease lumbar spine with lumbar radiculopathy symptoms Plan:: Patient is getting relief with the stimulator but is having incisional pain at this time as well as pain from a skin tear with the tape from the wound VAC. She is scheduled to see the [employer] stimulator bilingual call center representative this upcoming Saturday for reprogramming. She has been asked not to apply Neosporin or any other topical creams to the skin tear. She has also been advised to continue wearing her abdominal binder. We will see her back in the clinic in 1 week for reprogramming of device. Patient has been instructed to contact the clinic with any concerns before the next appointment. Dr. Wynn has reviewed this note and agrees with this plan of care. This note was dictated using voice recognition software and make contain errors or omissions. [facility] History I have reviewed the patient's past medical history: Yes Medical History: Reports:: Anxiety, Cancer, Cerebrovascular Accident, Hyperlipidemia, Hypertension Denies:: Diabetes Mellitus Type 1, Diabetes Mellitus Type 2, Internal Pacemaker, Lung Disease, MRSA, Seizures *Have you ever received a pneumonia vaccine?: Yes *Have you received a flu vaccine this season?: Yes Other Medical History: Reports: Arthritis, Other. Denies: Blood Transfusion Reaction Laterality Cases: Bilateral: Breast Biopsy, Lumpectomy, Mastectomy Other Surgeries: Yes: No Previous Surgery, Appendectomy, Cancer Surgery, Cholecystectomy, Colonoscopy, EGD, Other. No: Pacemaker Amputation: No Fractures: Yes (rt ankle) - *Social History Smoking Status: Current every day smoker Tobacco Type: cigarettes # Packs/Day (cigarettes): 1 Alcohol Intake: never Alcohol Intake Frequency:: holidays/special occasions only Substance Use Type: denies use *Occupational Status:: retired Housing: house Household Members: none *Travel in the last 8 weeks: None - Psychiatric History Pschychiatric History:: Reports:: Anxiety Family Hx:: Cancer
== END ==
PROVIDERS: Visit Provider Clinical Nurse Specialist Family Health
DX: M51.16 Intervertebral disc disorders with radiculopathy, lumbar region (principal)
CPT/HCPCS: 99212; G0463

== ENCOUNTER → 2021-06-01 09:55 | Outpatient (POV) | payer MEDICARE, SELFPAY ==
--- NOTE | 2021-06-01 10:12 | HMH.PAINSOAP ---
[facility] Pain Management SOAP Note Subjective:: Patient is a 76-year-old white female who presents today for follow-up after her spinal cord stimulator implant. She did see the spinal cord stimulator rental representative yesterday and did undergo reprogramming. Patient says that she is doing well with her low back pain. She is continuing to have some lower extremity pain. Today, she rates her pain a 3 out of 10. She is here today to have suture removed. Review of Systems General: No recent weight changes, no fever, no sleep disturbances Respiratory: No cough, no shortness of air, no recurring pulmonary infections Cardiovascular/peripheral vascular: No chest pain, no palpitations, no edema, no shortness of breath Gastrointestinal: No new onset incontinence, normal bowel movements reported Genitourinary: No new onset incontinence Musculoskeletal: Bilateral lower extremity pain Psychiatric: [Normal mood/affect] Neurological: [Denies weakness in extremities], [denies balance issues] Objective:: Physical exam General: Alert and oriented x3, no acute distress, pleasant and cooperative Lungs: Respirations even and unlabored, symmetrical chest expansion Eyes: PERRL Musculoskeletal: Flexion and extension of lumbar [spine] somewhat guarded secondary to pain, [antalgic gait noted] Neurological: Speech clear, no gross sensory deficit Skin: Incision well approximated, no redness, no drainage, no edema noted to site. Assessment:: Degenerative disc disease lumbar spine with lumbar radiculopathy symptoms Plan:: Patient is doing well overall. Sutures were removed. Incision was well approximated, no redness, no drainage, no edema to site. We will follow-up with patient in 1 month to reevaluate and reassess at that time. Patient has been instructed to contact the clinic with any concerns before the next appointment. Dr. Wynn has reviewed this note and agrees with this plan of care. This note was dictated using voice recognition software and make contain errors or omissions. [facility] History I have reviewed the patient's past medical history: Yes Medical History: Reports:: Anxiety, Cancer, Cerebrovascular Accident, Hyperlipidemia, Hypertension Denies:: Diabetes Mellitus Type 1, Diabetes Mellitus Type 2, Internal Pacemaker, Lung Disease, MRSA, Seizures *Have you ever received a pneumonia vaccine?: Yes *Have you received a flu vaccine this season?: Yes Other Medical History: Reports: Arthritis, Other. Denies: Blood Transfusion Reaction Laterality Cases: Bilateral: Breast Biopsy, Lumpectomy, Mastectomy Other Surgeries: Yes: No Previous Surgery, Appendectomy, Cancer Surgery, Cholecystectomy, Colonoscopy, EGD, Other. No: Pacemaker Amputation: No Fractures: Yes (rt ankle) - *Social History Smoking Status: Current every day smoker Tobacco Type: cigarettes # Packs/Day (cigarettes): 1 Alcohol Intake: never Alcohol Intake Frequency:: holidays/special occasions only Substance Use Type: denies use *Occupational Status:: retired Housing: house Household Members: none *Travel in the last 8 weeks: None - Psychiatric History Pschychiatric History:: Reports:: Anxiety Family Hx:: Cancer
[2021-06-01 10:22] VITALS: BP 160/64; PULSE 67; RESP 18; O2SAT 96; BMI 21.9
== END ==
PROVIDERS: Visit Provider Clinical Nurse Specialist Family Health
DX: M51.16 Intervertebral disc disorders with radiculopathy, lumbar region (principal)
CPT/HCPCS: 99212; G0463

== ENCOUNTER → 2021-06-29 09:05 | Outpatient (POV) | payer MEDICARE, SELFPAY ==
[2021-06-29 09:13] VITALS: BP 151/99; PULSE 69; RESP 20; TEMP 36.5; O2SAT 96; BMI 21.9
--- NOTE | 2021-06-29 11:51 | HMH.PAINSOAP ---
[facility] Pain Management SOAP Note Subjective:: Patient is a pleasant 76-year-old female who is here today for a 6-week follow-up after a [employer] spinal cord stimulator placement. Patient is currently being treated for degenerative disc disease of the lumbar spine with lumbar radiculopathy symptoms. Today, patient says that the stimulator is helping manage her pain. However, she says that she may need some reprogramming because it is not reaching her feet. She will reach out with a [employer] sales representative graphic art to see if they can meet with her to reprogram her stimulator. Additionally, patient is complaining of itchiness around her surgical incisions. She has taken Benadryl but it is not helping. She rates her pain today as 6 out of 10. General: No recent weight changes, no fever, no sleep disturbances Respiratory: No cough, no shortness of air, no recurring pulmonary infections Cardiovascular/peripheral vascular: No chest pain, no palpitations, no edema, no shortness of breath Gastrointestinal: No new onset incontinence, normal bowel movements reported Genitourinary: No new onset incontinence Musculoskeletal: Low back pain, bilateral lower extremity pain Psychiatric: [Normal mood/affect] Neurological: [Denies weakness in extremities], [denies balance issues] Objective:: General: Alert and oriented x3, no acute distress, pleasant and cooperative, [on room air] Lungs: Respirations even and unlabored, symmetrical chest expansion Eyes: PERRL Musculoskeletal: Flexion and extension of lumbar [spine] somewhat guarded secondary to pain, [antalgic gait noted] Skin: Surgical incisions are healing well and well approximated. There is no drainage, erythema, and swelling. Neurological: Speech clear, no gross sensory deficit Assessment:: Degenerative disc disease of the lumbar spine with lumbar radiculopathy symptoms Plan:: Overall, the patient is doing well with her spinal cord stimulator. She does note some itchiness around her surgical incision. I will start her with some Vistaril 25 mg at bedtime to hopefully help some of the itchiness. She will reach out with the [employer] sales representative graphic art to see if they can help with some of her reprogramming. I would like to see the patient back in 3 months. Patient has been instructed to contact the clinic with any concerns before the next appointment. Dr. Wynn has reviewed this note and agrees with this plan of care. This note was dictated using voice recognition software and make contain errors or omissions. [facility] History Medical History: Reports:: Anxiety, Cancer, Cerebrovascular Accident, Hyperlipidemia, Hypertension Denies:: Diabetes Mellitus Type 1, Diabetes Mellitus Type 2, Internal Pacemaker, Lung Disease, MRSA, Seizures *Have you ever received a pneumonia vaccine?: Yes *Have you received a flu vaccine this season?: Yes Other Medical History: Reports: Arthritis, Other. Denies: Blood Transfusion Reaction Laterality Cases: Bilateral: Breast Biopsy, Lumpectomy, Mastectomy Other Surgeries: Yes: No Previous Surgery, Appendectomy, Cancer Surgery, Cholecystectomy, Colonoscopy, EGD, Other. No: Pacemaker Amputation: No Fractures: Yes (rt ankle) - *Social History Smoking Status: Current every day smoker Tobacco Type: cigarettes # Packs/Day (cigarettes): 1 Alcohol Intake: never Alcohol Intake Frequency:: holidays/special occasions only Substance Use Type: denies use *Occupational Status:: retired Housing: house Household Members: none *Travel in the last 8 weeks: None - Psychiatric History Pschychiatric History:: Reports:: Anxiety Family Hx:: Cancer
== END ==
PROVIDERS: Visit Provider Student in an Organized Health Care Education/Training Program
DX: M51.16 Intervertebral disc disorders with radiculopathy, lumbar region (principal)
CPT/HCPCS: 99212; G0463

== ENCOUNTER → 2021-07-18 13:48 | Outpatient (CLI) | payer MEDICARE, SELFPAY ==
--- NOTE | 2021-07-18 13:56 | XR_ITS ---
FINAL REPORT CLINICAL HISTORY: COUGH, h/o matt breast cancer, c/o lt side lung pain COMPARISON: 10/24/2020 FINDINGS: Two views of the chest were obtained. The heart size and pulmonary vascularity are within normal limits. The mediastinum is normal. No acute pulmonary abnormality is identified. There is no pneumothorax. The bony thorax is intact. There are moderate degenerative changes. Moderate kyphosis is identified. Note is made of a spinal stimulator. IMPRESSION: No active cardiopulmonary disease. Reviewed, Interpreted and Dictated by Boo Corcoran III, MD Transcribed by Nely Farrell Authenticated by Boo Corcoran III, MD on 07/18/2021 04:03:06 PM [facility]
== END ==
PROVIDERS: PCP Family Medicine; Visit Provider Family Medicine
DX: R05.9 Cough, unspecified (principal)
CPT/HCPCS: 71046

== ENCOUNTER → 2021-09-28 14:45 | Outpatient (POV) | payer MEDICARE, SELFPAY ==
[2021-09-28 15:02] VITALS: BP 163/100; PULSE 64; RESP 18; TEMP 36.8; O2SAT 97; BMI 21.9
--- NOTE | 2021-09-28 15:19 | HMH.PAINSOAP ---
[facility] Pain Management SOAP Note Subjective:: Patient is a pleasant 76-year-old female who presents today for follow-up. Patient is currently being treated for degenerative disc disease of lumbar spine with lumbar radiculopathy symptoms. Patient is currently being managed with a [employer] spinal cord stimulator. This was placed at the beginning of the year. She has been doing well with the stimulator and has been helping manage her low back pain. She is here because she has been having some weakness on her bilateral legs. She is unsure if this is related to her age or if this is because of her stimulator. She also states that her legs are constantly cold. Denies any history of diabetes. She rates her pain today as 6 out of 10. Review of Systems: General: No recent weight changes, no fever, no sleep disturbances Respiratory: No cough, no shortness of air, no recurring pulmonary infections Cardiovascular/peripheral vascular: No chest pain, no palpitations, no edema, no shortness of breath Gastrointestinal: No new onset incontinence, normal bowel movements reported Genitourinary: No new onset incontinence Musculoskeletal: Bilateral leg weakness Psychiatric: [Normal mood/affect] Neurological: [Denies weakness in extremities], [denies balance issues] Objective:: Physical Exam: General: Alert and oriented x3, no acute distress, pleasant and cooperative Lungs: Respirations even and unlabored, symmetrical chest expansion Eyes: PERRL Musculoskeletal: Flexion and extension of lumbar [spine] somewhat guarded secondary to pain, [antalgic gait noted] Neurological: Speech clear, no gross sensory deficit Assessment:: Degenerative disease of lumbar spine with lumbar radiculopathy symptoms Plan:: Patient has a [employer] spinal cord stimulator that was placed at the beginning of this year. She has done well so far with the stimulator. She has met with the [employer] major account representative for some reprogramming in the past but has not talked to one recently. She is complaining of weakness to bilateral lower extremities. We will reach out to one of the representatives to see if they can do some reprogramming. Patient is also complaining of legs being constantly cold. I discussed with the patient that she can try to use some compression stockings to increase bloodflow. She may also need to reach out to her PCP to see if she has any vascular issues. I have offered to refer the patient for physical therapy. Patient has deferred at this time. She states that she will just increase her activity at home. We will follow-up with this patient in 5 months. Patient has been instructed to contact the clinic with any concerns before the next appointment. Dr. Wynn has reviewed this note and agrees with this plan of care. This note was dictated using voice recognition software and make contain errors or omissions. [facility] History Medical History: Reports:: Anxiety, Cancer, Cerebrovascular Accident, Hyperlipidemia, Hypertension Denies:: Diabetes Mellitus Type 1, Diabetes Mellitus Type 2, Internal Pacemaker, Lung Disease, MRSA, Seizures *Have you ever received a pneumonia vaccine?: Yes *Have you received a flu vaccine this season?: Yes Other Medical History: Reports: Arthritis, Other. Denies: Blood Transfusion Reaction Laterality Cases: Bilateral: Breast Biopsy, Lumpectomy, Mastectomy Other Surgeries: Yes: No Previous Surgery, Appendectomy, Cancer Surgery, Cholecystectomy, Colonoscopy, EGD, Other. No: Pacemaker Amputation: No Fractures: Yes (rt ankle) - *Social History Smoking Status: Current every day smoker Tobacco Type: cigarettes # Packs/Day (cigarettes): 1 Alcohol Intake: never Alcohol Intake Frequency:: holidays/special occasions only Substance Use Type: denies use *Occupational Status:: retired Housing: house Household Members: none *Travel in the last 8 weeks: None - Psychiatric History Pschychiatric History:: Reports:: Anxiety Fa
== END ==
PROVIDERS: Visit Provider Student in an Organized Health Care Education/Training Program
DX: M51.16 Intervertebral disc disorders with radiculopathy, lumbar region (principal); M19.90 Unspecified osteoarthritis, unspecified site
CPT/HCPCS: 99212; G0463

== ENCOUNTER → 2021-12-05 10:39 | Outpatient (CLI) | payer MEDICARE, SELFPAY ==
--- NOTE | 2021-12-05 10:39 | CT_ITS ---
FINAL REPORT TECHNIQUE: Axial images were obtained from the lung apex to the mid abdomen by computed tomography. Coronal reformatted images were obtained. This study was performed with techniques to keep radiation doses as low as reasonably achievable, (ALARA). Individualized dose reduction techniques using automated exposure control or adjustment of mA and/or kV according to the patient''s size were employed. CLINICAL HISTORY: Hemoptysis COMPARISON: Chest x-ray dated July 18, 2021 FINDINGS: There is no axillary adenopathy. There is no hilar or mediastinal adenopathy. Heart size is normal. There is ectasia of the ascending aorta measuring 3.8 cm. There is no pericardial or pleural effusion. The patient is status post cholecystectomy. There is a spiculated nodule in the posterior left lower lobe measuring 14 mm that is worrisome for a neoplasm. There is a calcified granuloma in the lingula. There is moderate emphysema. There is mild scarring. IMPRESSION: Spiculated nodule in the posterior left lower lobe worrisome for a neoplasm. Recommend PET-CT for further evaluation. Reviewed, Interpreted and Dictated by Boo Corcoran III, MD Transcribed by Peyton Castellanos Authenticated and [facility]
--- NOTE | 2021-12-05 12:17 | HMH.ITSTN ---
CRITICAL FINDING: I called and spoke with Monae from Dr. Morse office and made her aware of the critical finding per Dr. Weeks Radiologist. Dr Butch Weeks Recommends PET CT due to speculated nodule posterior- left lower lobe, worrisome for neoplasm.
== END ==
PROVIDERS: PCP Family Medicine; Visit Provider Internal Medicine Pulmonary Disease
DX: R04.2 Hemoptysis (principal)
CPT/HCPCS: 71250

== ENCOUNTER → 2022-04-18 09:55 | Outpatient (CLI) | payer MEDICARE, SELFPAY ==
--- NOTE | 2022-04-18 09:59 | XR_ITS ---
FINAL REPORT CLINICAL HISTORY: possible LLL pneumonia pt had cancer removed out of her left lung in january 2022 COMPARISON: July 18, 2021 FINDINGS: Two views of the chest were obtained. The heart size and pulmonary vascularity are within normal limits. The mediastinum is normal. There is a small left pleural effusion which is new. There are mild left lung base opacities, atelectasis or pneumonia. There is no pneumothorax. A spinal stimulator is present. IMPRESSION: New small left pleural effusion. Mild left lung base atelectasis or pneumonia. Reviewed, Interpreted and Dictated by Boo Corcoran III, MD Transcribed by Nae Ansari Authenticated and [facility]
== END ==
PROVIDERS: PCP Family Medicine; Visit Provider Family Medicine
DX: C34.92 Malignant neoplasm of unspecified part of left bronchus or lung (principal)
CPT/HCPCS: 71046

== ENCOUNTER → 2022-05-21 10:12 | Outpatient (POV) | payer MEDICARE, SELFPAY ==
[2022-05-21 10:51] VITALS: BP 131/50; PULSE 53; RESP 18; O2SAT 98; BMI 25.4
--- NOTE | 2022-05-21 13:22 | EXP.PAIN.SOA ---
[facility] Pain Management SOAP Note Subjective:: Patient is a pleasant 77-year-old female who presents today for follow-up. We are currently treating the patient for degenerative disc disease of lumbar spine with lumbar radiculopathy symptoms. Today she rates her pain a 7 out of 10. Patient denies any new trauma or injury. Patient denies any change location or type of pain she experiences. Patient does state that she has chronic back pain as well as pain in her feet and ankles. Patient states this has been going on for some time and describes it as a aching, throbbing sensation that is worse with increased activity. Patient does state that the feet and ankle pain is a constant issue and is unrelated to any specific activities. Patient has tried Tylenol and ibuprofen along with topical creams with minimal improvement. Patient does state that she uses a heating pad on her back frequently. Patient does have a spinal cord stimulator in place from [employer] however she states it has been quite a while since she has had it reprogrammed. Patient does state that she back in January 2022 she had a surgery with her lungs in order to remove cancer. Patient states she is scheduled for a follow-up from this procedure in June. Patient states she does believe they were able to get all of the cancer at that time. Patient is currently prescribed alprazolam 1 mg daily from her primary care doctor's office. Patient also states she was prescribed oxycodone 5 mg at the time of her surgery and that she does still have some of this medication and will occasionally use it in times of worsening pain. Her Patrick is [phone]. Its been reviewed and appropriate. Review of Systems: General: No recent weight changes, no fever, no sleep disturbances Respiratory: No cough, no shortness of air, no recurring pulmonary infections Cardiovascular/peripheral vascular: No chest pain, no palpitations, no edema, no shortness of breath Gastrointestinal: No new onset incontinence, normal bowel movements reported Genitourinary: No new onset incontinence Musculoskeletal: Low back pain, feet/ankle pain Psychiatric: [Normal mood/affect] Neurological: [Denies weakness in extremities], [denies balance issues] Objective:: Physical Exam: General: Alert and oriented x3, no acute distress, pleasant and cooperative Lungs: Respirations even and unlabored, symmetrical chest expansion Eyes: PERRL Musculoskeletal: Flexion and extension of lumbar [spine] somewhat guarded secondary to pain, [antalgic gait noted] Neurological: Speech clear, no gross sensory deficit ORT score updated with low risk Assessment:: Degenerative disc disease of lumbar spine with lumbar radiculopathy symptoms, feet/ankle pain Plan:: Patient continues to experience significant pain in her low back along with her feet and ankles with limited range of motion. I have discussed with the patient that I will order her a CT without contrast of her lumbar spine. I will also order the patient a compounding cream. I have also counseled the patient that I will contact [employer] representatives for them to get in contact with her to have her reprogrammed for better pain improvement. Patient will return to clinic following her CT imaging for reevaluation of symptoms and follow-up. Patient has been instructed to contact the clinic with any concerns before the next appointment. Dr. Wynn has reviewed this note and agrees with this plan of care. This note was dictated using voice recognition software and make contain errors or omissions. [facility] Disclaimer: The information contained in this section may have been updated after the patient was seen, as this information can be updated by other users. Medical History (Updated 05/15/22 @ 16:56 by Donald Castellanos MD) Anxiety Hyperlipidemia Hypertension Lung cancer Surgical History H/O mastectomy History of cholecystectom
== END ==
PROVIDERS: PCP Family Medicine; Visit Provider Nurse Practitioner Family
DX: M51.16 Intervertebral disc disorders with radiculopathy, lumbar region (principal); M25.579 Pain in unspecified ankle and joints of unspecified foot; M79.673 Pain in unspecified foot
CPT/HCPCS: 99212; G0463

== ENCOUNTER → 2022-05-24 13:09 | Outpatient (CLI) | payer MEDICARE, SELFPAY ==
--- NOTE | 2022-05-24 13:12 | CT_ITS ---
FINAL REPORT CLINICAL HISTORY: LOW BACK PAIN FINDINGS: Axial imaging of the lumbar spine was obtained without contrast. Sagittal and coronal reformatted images were also obtained and reviewed.This study was performed with techniques to keep radiation doses as low as reasonably achievable (ALARA). Individualized dose reduction techniques using automated exposure control or adjustment of mA and/or kV according to the patient''s size were employed. There is no fracture. There are mild and moderate degenerative changes. There is mild retrolisthesis of L3 on 4. There is mild anterolisthesis of L4 on 5. There is left lateral subluxation of L3 on 4 measuring 6 mm. A spinal stimulator is present. L1-2: An annular bulge is present. No evidence of significant central canal stenosis or neuroforaminal narrowing. L2-3: An annular bulge and facet arthropathy are present. There is mild bilateral neural foraminal narrowing. L3-4: An annular bulge is present. Facet arthropathy and osteophytes are present. There is moderate bilateral neural foraminal narrowing. L4-5: An annular bulge and facet arthropathy are present. There is mild right and moderate left neural foraminal narrowing. L5-S1: An annular bulge and facet arthropathy are present. There is mild right and severe left neural foraminal narrowing. IMPRESSION: Multilevel degenerative change without acute bony abnormality. Reviewed, Interpreted and Dictated by Boo Corcoran III, MD Transcribed by Nely Farrell Authenticated and [facility] [place] [place]
== END ==
PROVIDERS: PCP Family Medicine; Visit Provider Nurse Practitioner Family
DX: M54.50 Low back pain, unspecified (principal)
CPT/HCPCS: 72131

== ENCOUNTER → 2022-06-06 11:09 | Outpatient (POV) | payer MEDICARE, SELFPAY ==
[2022-06-06 11:49] VITALS: BP 145/86; PULSE 67; RESP 18; O2SAT 98; BMI 25.7
--- NOTE | 2022-06-06 12:38 | EXP.PAIN.SOA ---
[facility] Pain Management SOAP Note Subjective:: Patient is a pleasant 77-year-old female who presents today for follow-up of the lumbar CT. We are currently treating the patient for degenerative disc disease of lumbar spine with lumbar radiculopathy symptoms. Today she rates her pain a 5 out of 10. Patient denies any new trauma or injury. Patient denies any change location or type of pain she experiences. Patient states the compounding cream that we did order her at her last visit has provided significant improvement of her symptoms. Patient states her pain is overall better. Patient states that [employer] provider service representative was able to provide reprogramming of her device and give better relief of her pain symptoms. Patient is currently managed with alprazolam 1 mg daily. Patient denies any side effects from this medication. Patient states she did have multiple injections in the past from a different pain doctor in [place]. Patient states that she had a lot of frustrations with this office due to them stating that she needed to have surgery on her back. Patient states that she never got significant relief with most of her injections and that they ended up releasing her from the clinic when the provider was leaving to [place]. Her Patrick is [phone]. Its been reviewed and appropriate. Review of Systems: General: No recent weight changes, no fever, no sleep disturbances Respiratory: No cough, no shortness of air, no recurring pulmonary infections Cardiovascular/peripheral vascular: No chest pain, no palpitations, no edema, no shortness of breath Gastrointestinal: No new onset incontinence, normal bowel movements reported Genitourinary: No new onset incontinence Musculoskeletal: Low back pain Psychiatric: [Normal mood/affect] Neurological: [Denies weakness in extremities], [denies balance issues] Objective:: Physical Exam: General: Alert and oriented x3, no acute distress, pleasant and cooperative Lungs: Respirations even and unlabored, symmetrical chest expansion Eyes: PERRL Musculoskeletal: Flexion and extension of low back [spine] somewhat guarded secondary to pain, [antalgic gait noted] Neurological: Speech clear, no gross sensory deficit [address] [facility] [address] [place] [address] [address] Scan Report Signed Patient: Jeane Acuna MR#: [id number] : 1945 Acct:[id number] Age/Sex: 77 / F ADM Date: 05/24/22 Loc: RAD Attending Dr: Anita Ochoa APRN Ordering Physician: Anita Ochoa APRN Date of Service: 05/24/22 Procedure(s): CT lumbar spine wo con Accession Number(s): [id number] cc: Anita Ochoa APRN; Boo Corcoran MD; Donald Castellanos MD~ FINAL REPORT CLINICAL HISTORY: LOW BACK PAIN FINDINGS: Axial imaging of the lumbar spine was obtained without contrast. Sagittal and coronal reformatted images were also obtained and reviewed.This study was performed with techniques to keep radiation doses as low as reasonably achievable (ALARA). Individualized dose reduction techniques using automated exposure control or adjustment of mA and/or kV according to the patient''s size were employed.? There is no fracture.? There are mild and moderate degenerative changes.? There is mild retrolisthesis of L3 on 4.? There is mild anterolisthesis of L4 on 5.? There is left lateral subluxation of L3 on 4 measuring 6 mm.? A spinal stimulator is present.? L1-2:? An annular bulge is present.? No evidence of significant central canal stenosis or neuroforaminal narrowing.? L2-3:? An annular bulge and facet arthropathy are present.? There is mild bilateral neural foraminal narrowing.? L3-4:? An annular bulge is present.? Facet arthropathy and osteophytes are present.? There is moderate bilateral neural foraminal narrowing.? L4-5:? An annular bulge and facet arthropathy are present.? There is mild right and moderate left neural foraminal narrowing.? L5-S1:? An annular bulge and facet arthropathy are present.? The
== END ==
PROVIDERS: PCP Family Medicine; Visit Provider Nurse Practitioner Family
DX: M51.16 Intervertebral disc disorders with radiculopathy, lumbar region (principal)
CPT/HCPCS: 99212; G0463

== ENCOUNTER → 2022-08-30 16:56 | Outpatient (CLI) | payer MEDICARE, SELFPAY ==
[2022-08-30 16:32] LABS: Basophils % 0.6 % (0.1-2.0); Eosinophils # 0.1 K/mm3 (0.0-0.4); Eosinophils % 1.3 % (0.1-12.0); Hematocrit 46.5 % (37.0-47.0); Hemoglobin 15.7 g/dL (12.2-16.2); Lymphocytes # 1.7 K/mm3 (0.7-4.5); Lymphocytes % 29.5 % (10-50); Mean Corpuscular HGB Conc 33.8 g/dL (31.8-35.4); Mean Corpuscular Hemoglobin 30.8 pg (27.0-31.2); Mean Corpuscular Volume 91.3 fl (81-99); Mean Platelet Volume 8.9 fl (7.4-10.4); Monocytes # 0.3 K/mm3 (0.1-1.0); Monocytes % 5.4 % (1.7-9.3); Neutrophils # 3.6 K/mm3 (1.8-7.8); Neutrophils % 63.2 % (37.0-80.0); Platelet Count 300 K/mm3 (142-424); Red Blood Count 5.09 M/mm3 (4.20-5.40); Red Cell Distribution Width 14.9 % (11.5-17.5); White Blood Count 5.7 K/mm3 (4.8-10.8)
[2022-08-30 16:48] LABS: Alanine Aminotransferase 24 U/L (12-78); Albumin Level 4.6 g/dl (3.5-5.0); Alkaline Phosphatase 89 U/L (38-126); Anion Gap 19.4 mEq/L (5-15); Aspartate Amino Transferase 37 U/L (14-36); Bilirubin,Total 0.6 mg/dl (0.2-1.3); Blood Urea Nitrogen 9 mg/dl (7-17); Calcium 9.2 mg/dl (8.4-10.2); Carbon Dioxide 27 mmol/L (22.0-30.0); Chloride 91 mmol/L (98-107); Chol/HDL Ratio 2.8 (1-3.5); Cholesterol 164 mg/dl (140-200); Estimated Glomerular Filt Rate 69 ml/min (>60); GFR (African American) 84 ML/MIN (>60); Globulin 2.3 g/dL (1.3-3.2); Glucose 94 mg/dl (74-100); HDL Cholesterol 59 mg/dl (40-60); Potassium 4.4 mmoL/L (3.5-5.1); Sodium 133 mmol/L (136-145); Total Protein,Serum 6.9 g/dl (6.3-8.2); Triglycerides 128 mg/dl (30-150); VLDL Cholesterol 26 mg/dL (0-40)
[2022-08-30 16:57] LABS: Hemoglobin A1C 5.7 % (4.0-6.0)
[2022-08-30 17:00] LABS: Direct LDL Cholesterol 82.78 mg/dL (100-129)
[2022-08-30 17:19] LABS: Thyroid Stimulating Hormone 2.04 uIU/mL (0.465-4.68)
[2022-08-30 17:47] LABS: Vitamin B12 326 pg/mL (239-931)
== END ==
PROVIDERS: Specialist; PCP Nurse Practitioner Family; Visit Provider Nurse Practitioner Family
DX: R53.83 Other fatigue (principal); M54.50 Low back pain, unspecified; R20.0 Anesthesia of skin; R20.2 Paresthesia of skin; Z79.899 Other long term (current) drug therapy
CPT/HCPCS: 80053; 80061; 82607; 82746; 83036; 84443; 85025

== ENCOUNTER → 2022-11-05 15:46 | Outpatient (CLI) | payer MEDICARE, SELFPAY ==
--- NOTE | 2022-11-05 16:13 | MR_ITS ---
PROCEDURE INFORMATION: Exam: MR Head Without and With Contrast Exam date and time: 11/05/2022 4:20 PM Age: 77 years old Clinical indication: Pain; Headache; Additional info: H/o CVA, vascular parkinsonism TECHNIQUE: Imaging protocol: Magnetic resonance imaging of the head without and with contrast. Contrast material: ISOVUE; Contrast volume: 11 ml; Contrast route: IV; COMPARISON: No relevant prior studies available. FINDINGS: Brain: No acute intraparenchymal hemorrhage, territorial infarct or mass lesion. There are patchy and coalescent T2 hyperintensities in the periventricular and subcortical white matter. The appearance is nonspecific, but most likely represents chronic small vessel disease in a person of this age. Chronic lacunar infarcts noted in the basal ganglia region, thalami bilaterally, curtis and bilateral cerebellar hemispheres. Small region of encephalomalacia in the right frontal convexity. Cerebral ventricles: The ventricles, sulci and cisterns are normal in size and configuration. No hydrocephalus or midline structure shift Bones/joints: Unremarkable. Paranasal sinuses: Normal as visualized. No acute sinusitis. Mastoid air cells: Normal as visualized. No mastoid effusion. Orbital cavities: Unremarkable. Vasculature: Flow voids of the major vascular structures are intact. Soft tissues: Unremarkable. Other findings: No abnormal parenchymal or meningeal enhancement. IMPRESSION: 1. No acute intraparenchymal hemorrhage, territorial infarct or mass lesion. 2. Nonspecific and coalescent white matter hyperintensities, statistically white matter changes in a person of this age
[2022-11-05 16:45] LABS: Chloride 98 mmol/L (98-107); Sodium 135 mmol/L (136-145)
[2022-11-05 16:48] LABS: Blood Urea Nitrogen 10 mg/dl (7-17); Estimated Glomerular Filt Rate 61 ml/min (>60); GFR (African American) 73 ML/MIN (>60)
[2022-11-05 16:49] LABS: Calcium 9.1 mg/dl (8.4-10.2); Carbon Dioxide 28 mmol/L (22.0-30.0); Glucose 122 mg/dl (74-100)
[2022-11-05 17:02] LABS: Anion Gap 12.3 mEq/L (5-15); Potassium 3.3 mmoL/L (3.5-5.1)
== END ==
PROVIDERS: PCP Nurse Practitioner Family; Visit Provider Specialist
DX: G20 Parkinson's disease (principal); Z86.73 Personal history of transient ischemic attack (TIA), and cerebral infarction without residual deficits
CPT/HCPCS: 36415; 70553; 80048; A9576

== ENCOUNTER 2022-11-06 14:41 | Emergency (ER) | payer MEDICARE, SELFPAY ==
[2022-11-06] VITALS (10 sets, daily range): BP systolic 114–167; BP diastolic 59–72; PULSE 58–67; RESP 16–20; TEMP 36.5–36.8; O2SAT 94–97; BMI 24.0
--- NOTE | 2022-11-06 14:57 | PC.NURSE ---
DR SENA AT BEDSIDE
--- NOTE | 2022-11-06 15:05 | CT_ITS ---
FINAL REPORT TECHNIQUE: Axial images through the pelvis were performed by computed tomography. Sagittal and coronal reformatted images were obtained and reviewed. This study was performed with techniques to keep radiation doses as low as reasonably achievable (ALARA). Individualized dose reduction techniques using automated exposure control or adjustment of mA and/or kV according to the patient's size were employed. CLINICAL HISTORY: fall, midline pain FINDINGS: There is no fracture of the pelvis or hips. There is mild degenerative disease of the hips bilaterally. No acute soft tissue abnormality is identified. IMPRESSION: No fracture is identified. Reviewed, Interpreted and Dictated by Elisa Crockett MD Transcribed by Nely Farrell Authenticated and [facility]
--- NOTE | 2022-11-06 15:05 | CT_ITS ---
FINAL REPORT TECHNIQUE: Thin section axial images were obtained through the lumbar spine without contrast. Sagittal and coronal reconstruction images were obtained from the axial data. Exam was performed using dose reduction techniques. CLINICAL HISTORY: fall, midline pain COMPARISON: 05/24/2022 FINDINGS: There are acute compression fractures involving the superior endplates of L1 and L2 with less than 25% loss of vertebral body height of both fractures. The remaining vertebral body heights are normal. There is grade 1 anterior spondylolisthesis of L4 on 5, stable. There is multilevel degenerative disc disease and levoscoliosis. Spinal stimulator is present. Paraspinal soft tissues are within normal limits. IMPRESSION: Acute compression fractures of L1 and L2 with less than 25% loss of vertebral body height. Reviewed, Interpreted and Dictated by Elisa Crockett MD Transcribed by Nely Farrell Authenticated and [facility]
--- NOTE | 2022-11-06 15:09 | CT_ITS ---
FINAL REPORT TECHNIQUE: Thin section axial images were obtained through the cervical spine without contrast. Multiplanar reconstruction images were obtained from the axial data. Exam was performed using dose reduction techniques. CLINICAL HISTORY: fall FINDINGS: There is no acute fracture or acute malalignment of the cervical spine. There is no evidence of unilateral or bilateral facet lock. Vertebral body height is preserved. There is multilevel degenerative disc disease, most pronounced at C5-6 and C6-7. No acute paraspinal abnormality is identified. IMPRESSION: Multilevel degenerative disc disease without acute fracture. Reviewed, Interpreted and Dictated by Elisa Crockett MD Transcribed by Nely Farrell Authenticated and [facility]
--- NOTE | 2022-11-06 15:09 | CT_ITS ---
FINAL REPORT TECHNIQUE: Thin section axial images were obtained from skull base to vertex without contrast. Coronal reconstruction images were obtained from the axial data. Exam was performed using dose reduction technique. CLINICAL HISTORY: fall FINDINGS: There is no mass effect or midline shift. There is no hydrocephalus. There is no intracranial hemorrhage. There is moderate periventricular hypodensity with asymmetric age indeterminate hypodensity in the left internal capsule and left basal ganglia, ischemia is not excluded. There are chronic lacunar infarcts in the bilateral basal ganglia. The posterior fossa is without acute abnormality. The basilar cisterns are preserved. The soft tissues are without acute abnormality. No acute osseous abnormality is identified. IMPRESSION: No evidence of mass effect, midline shift, or hemorrhage. Age indeterminate asymmetric hypodensity in the left internal capsule and left basal ganglia, ischemia is not excluded. Consider MRI. Old lacunar infarcts and chronic and changes likely related to chronic small vessel ischemia. Reviewed, Interpreted and Dictated by Elisa Crockett MD Transcribed by Nely Farrell Authenticated and [facility]
--- NOTE | 2022-11-06 15:09 | HMH.EDGENADL ---
Discharge Plan Disposition Patient Disposition: Left Against Medical Advice Condition: Fair Chief Complaint: Fall Prescriptions Prescriptions: No Action ascorbate calcium (vitamin C) 500 mg tablet 500 mg PO DAILY glucosamine-chondroitin 900 mg tablet 900 mg PO DAILY calcium carbonate [Calcium 600] 600 mg calcium (1,500 mg) tablet 600 mg PO DAILY bisoprolol fumarate 5 mg tablet 5 mg PO DAILY 90 Days Qty: 90 0RF amlodipine 5 mg tablet 5 mg PO DAILY 90 Days Qty: 90 0RF Ocuvite Adult 50 Plus 250 mg (90 mg-160 mg) capsule 1 cap PO DAILY duloxetine 60 mg capsule, delayed rel sprinkle 120 mg PO DAILY Qty: 30 5RF duloxetine 60 mg capsule,delayed release(DR/EC) 60 mg PO DAILY MDD 60 mg Qty: 30 6RF clopidogrel 75 mg tablet 75 mg PO DAILY 90 Days Qty: 90 0RF simvastatin 40 mg tablet See Rx Instructions .ROUTE .COMPLEX Qty: 90 0RF Dose Instruction: TAKE 1 TABLET EVERY EVENING FOR CHOLESTEROL Rx Instructions: TAKE 1 TABLET EVERY EVENING FOR CHOLESTEROL alprazolam 1 mg tablet 1 mg PO QHS Qty: 30 2RF cholecalciferol (vitamin D3) 10 MCG tablet 400 unit PO DAILY Referrals Follow up/Referrals: Donald Castellanos MD [Primary Care Provider] - See instructions Activity Restrictions/Add. Instructions Additional Instructions/Restrictions: At this time you are signing out AGAINST MEDICAL ADVICE. If you wish to return to be admitted for continued evaluation at any time please not hesitate to do so. Please follow-up with your family physician as soon as you are able to. Clinical Impressions Clinical Impression: Closed compression fracture of L1 vertebra, Closed compression fracture of L2 vertebra Discharge ED Provider: Juan Quintero General Adult HPI General Chief complaint: Fall Stated complaint: [id number] pain in back Time Seen by Provider: 11/06/22 14:53 Mode of Arrival: Wheelchair Source of Information: Patient and Relative Limitations: No Limitations Description of Symptoms (Recalled from ER Triage Doc. by RN): PT REPORTS FALL AT HOME OUT OF BED, LANDING ON FLOOR. REPORTS LOW BACK AND BILATERAL HIP PAIN. UNKNOWN LOC OR IF SHE HIT HER HEAD. History of Present Illness HPI narrative: Patient is a 77-year-old female with history of previous CVA, parkinsonian syndrome, numbness and tingling, paresthesias, previous lung cancer status post surgical intervention, lumbar radiculopathy who presents emergency department for evaluation of traumatic injury sustained in a fall. History is obtained by patient and family member at bedside. Patient was rising from her bed this morning trying to transfer to her walker when she fell onto her bottom. Patient has told nursing it was unknown whether she hit her head, states to me that she did not hit her head, no loss of consciousness. Patient takes antiplatelet but no anticoagulants. She is complaining only of low back pain. At baseline she lives alone, ambulates with difficulty with a walker, has increased falls lately. She states that she has a shuffling gait which she thinks is contributing. No other acute complaints at this time. Related Data Home Medications Medication Instructions Recorded Confirmed ascorbate calcium (vitamin C) 500 500 mg PO DAILY Supplement 11/14/17 10/29/22 mg tablet cholecalciferol (vitamin D3) 10 400 unit PO DAILY Supplement 04/18/21 10/29/22 mcg (400 unit) tablet antiarthritic combination no.2 900 900 mg PO DAILY Arthritis 05/15/22 10/29/22 mg tablet (glucosamine-chondroitin) calcium carbonate 600 mg calcium 600 mg PO DAILY SUPPLIMENT 05/15/22 10/29/22 (1,500 mg) tablet (Calcium) [id number] 250 mg-dha 90 1 cap PO DAILY 10/29/22 10/29/22 mg-epa 160 rg-hanf-kmst-zeax capsule (Ocuvite Adult 50 Plus) Previous Rx's Medication Instructions Recorded amlodipine 5 mg tablet 5 mg PO DAILY BLOOD PRESSURE 90 05/24/22 days #90 tabs bisoprolol fumarate 5 m
[2022-11-06 15:42] LABS: Chloride 97 mmol/L (98-107)
[2022-11-06 15:43] LABS: Sodium 134 mmol/L (136-145)
[2022-11-06 15:45] LABS: Alanine Aminotransferase 25 U/L (12-78); Aspartate Amino Transferase 42 U/L (14-36); Blood Urea Nitrogen 8 mg/dl (7-17); Creatinine Clearance Estimated 42 mL/min (50-200); Estimated Glomerular Filt Rate 81 ml/min (>60); GFR (African American) 98 ML/MIN (>60); Potassium 3.4 mmoL/L (3.5-5.1)
[2022-11-06 15:46] LABS: Albumin Level 3.8 g/dl (3.5-5.0); Albumin/Globulin Ratio 1.5 (1.1-1.8); Alkaline Phosphatase 75 U/L (38-126); Anion Gap 10.4 mEq/L (5-15); Basophils % 0.1 % (0.1-2.0); Bilirubin,Total 0.5 mg/dl (0.2-1.3); Carbon Dioxide 30 mmol/L (22.0-30.0); Eosinophils % 0.5 % (0.1-12.0); Globulin 2.6 g/dL (1.3-3.2); Glucose 151 mg/dl (74-100); Hematocrit 42.6 % (37.0-47.0); Hemoglobin 13.9 g/dL (12.2-16.2); Lymphocytes # 0.9 K/mm3 (0.7-4.5); Lymphocytes % 14.3 % (10-50); Mean Corpuscular HGB Conc 32.6 g/dL (31.8-35.4); Mean Corpuscular Hemoglobin 29.8 pg (27.0-31.2); Mean Corpuscular Volume 91.6 fl (81-99); Mean Platelet Volume 8.7 fl (7.4-10.4); Monocytes # 0.3 K/mm3 (0.1-1.0); Monocytes % 4.2 % (1.7-9.3); Neutrophils # 5.3 K/mm3 (1.8-7.8); Platelet Count 232 K/mm3 (142-424); Red Blood Count 4.65 M/mm3 (4.20-5.40); Red Cell Distribution Width 14.2 % (11.5-17.5); Total Protein,Serum 6.4 g/dl (6.3-8.2); White Blood Count 6.5 K/mm3 (4.8-10.8)
--- NOTE | 2022-11-06 16:00 | ECG_ITS ---
APPROVED REPORT Exam: Resting ECG HR:65 bpm ECG Measurements Heart Rate 65 AXES TX 170 P -61 QRSd 82 QRS 3 QT 412 T 59 QTc 423 Conclusion SINUS RHYTHM NORMAL ECG UNCONFIRMED REPORT Electronically signed by : Heriberto Meeks MD 11/07/2022 21:18:48
--- NOTE | 2022-11-06 16:10 | PC.NURSE ---
PT REPORTS SHE IS CURRENTLY GETTING TREATED FOR UTI DIAGNOSED ON THE 7TH OF THIS MONTH AND A STD. STATES SHE IS ON DAY 4 OF TREATMENT FOR STD. ER AWARE.
--- NOTE | 2022-11-06 16:18 | PC.NURSE ---
PT AWARE OF NEED FOR UA.
--- NOTE | 2022-11-06 16:40 | PC.NURSE ---
ASSISTED PT TO THE RESTROOM VIA WHEELCHAIR
--- NOTE | 2022-11-06 16:44 | PC.NURSE ---
PT ASSISTED BACK TO BATHROOM. UNSUCCESSFUL COLLECTING URINE SAMPLE. PROVIDED PT WITH WARM BLANKET.
--- NOTE | 2022-11-06 17:52 | PC.NURSE ---
DR SENA AT BEDSIDE TO UPDATE PT AND FAMILY
== END 2022-11-06 18:07 | disposition left against medical advice (07) ==
PROVIDERS: Emergency Provider Emergency Medicine; PCP Family Medicine
DX: S32.010A Wedge compression fracture of first lumbar vertebra, initial encounter for closed fracture (principal); S32.020A Wedge compression fracture of second lumbar vertebra, initial encounter for closed fracture; G20 Parkinson's disease; F41.9 Anxiety disorder, unspecified; E78.5 Hyperlipidemia, unspecified; I10 Essential (primary) hypertension; Z87.891 Personal history of nicotine dependence; W06.XXXA Fall from bed, initial encounter
CPT/HCPCS: 70450; 72125; 72131; 72192; 80053; 85025; 93005; 99285

== ENCOUNTER 2022-11-07 12:05 | Emergency (ER) | payer MEDICARE, SELFPAY ==
[2022-11-07 12:20] VITALS: BP 143/70; PULSE 87; RESP 20; TEMP 36.8; O2SAT 92; BMI 24.0
--- NOTE | 2022-11-07 12:38 | HMH.EDGENADL ---
Discharge Plan Disposition Patient Disposition: Home, Self-Care Prescriptions Prescriptions: No Action ascorbate calcium (vitamin C) 500 mg tablet 500 mg PO DAILY glucosamine-chondroitin 900 mg tablet 900 mg PO DAILY calcium carbonate [Calcium 600] 600 mg calcium (1,500 mg) tablet 600 mg PO DAILY bisoprolol fumarate 5 mg tablet 5 mg PO DAILY 90 Days Qty: 90 0RF amlodipine 5 mg tablet 5 mg PO DAILY 90 Days Qty: 90 0RF Ocuvite Adult 50 Plus 250 mg (90 mg-160 mg) capsule 1 cap PO DAILY duloxetine 60 mg capsule, delayed rel sprinkle 120 mg PO DAILY Qty: 30 5RF duloxetine 60 mg capsule,delayed release(DR/EC) 60 mg PO DAILY MDD 60 mg Qty: 30 6RF clopidogrel 75 mg tablet 75 mg PO DAILY 90 Days Qty: 90 0RF simvastatin 40 mg tablet See Rx Instructions .ROUTE .COMPLEX Qty: 90 0RF Dose Instruction: TAKE 1 TABLET EVERY EVENING FOR CHOLESTEROL Rx Instructions: TAKE 1 TABLET EVERY EVENING FOR CHOLESTEROL alprazolam 1 mg tablet 1 mg PO QHS Qty: 30 2RF hydrocodone-acetaminophen 5-325 mg tablet 1 tab PO Q4-6H PRN (Reason: pain) Qty: 40 0RF cholecalciferol (vitamin D3) 10 MCG tablet 400 unit PO DAILY Referrals Follow up/Referrals: Provider,Referral, MD [Referring] - See instructions Activity Restrictions/Add. Instructions Additional Instructions/Restrictions: We had no mechanism to get a fitted lumbar or TLSO brace for you today. Please keep your follow-up appointment with your spine surgeon as previously instructed and return to the emergency department with any lower extremity weakness loss of bowel or bladder continence which is new numbness between your legs or any other concern. Clinical Impressions Clinical Impression: Closed compression fracture of L1 vertebra, Closed compression fracture of L2 vertebra Instructions Patient Instructions: DI for Low Back Pain Discharge ED Provider: Lori Henderson General Adult HPI General Chief complaint: Back Pain/Injury Stated complaint: Back Pain Time Seen by Provider: 11/07/22 12:27 Mode of Arrival: Wheelchair Source of Information: Patient Limitations: No Limitations Description of Symptoms (Recalled from ER Triage Doc. by RN): pt to ed c/o lower back pain. pt reports being seen in the ed yesterday and signing out against medical advice vs admission. History of Present Illness HPI narrative: Patient is a 77-year-old female here with persistent back pain after a fall and a diagnosis of L1 and L2 compression fractures yesterday. She states that she left the emergency department prior to being told by Dr. Quintero her final diagnoses. She says she left AMA because she was tired. She subsequently called her primary care doctor who called her in [address] [place] fives alprazolam and duloxetine. She states that she is just miserable and she is having hard time functioning at home. No new lower extremity weakness, saddle anesthesia urinary or bowel incontinence or any other lower extremity neurologic symptoms. Related Data Home Medications Medication Instructions Recorded Confirmed ascorbate calcium (vitamin C) 500 500 mg PO DAILY Supplement 11/14/17 10/29/22 mg tablet cholecalciferol (vitamin D3) 10 400 unit PO DAILY Supplement 04/18/21 10/29/22 mcg (400 unit) tablet antiarthritic combination no.2 900 900 mg PO DAILY Arthritis 05/15/22 10/29/22 mg tablet (glucosamine-chondroitin) calcium carbonate 600 mg calcium 600 mg PO DAILY SUPPLIMENT 05/15/22 10/29/22 (1,500 mg) tablet (Calcium) divbuiws-jfp- 250 mg-dha 90 1 cap PO DAILY 10/29/22 10/29/22 mg-epa 160 kl-joog-wmzl-zeax capsule (Ocuvite Adult 50 Plus) Previous Rx's Medication Instructions Recorded amlodipine 5 mg tablet 5 mg PO DAILY BLOOD PRESSURE 90 05/24/22 days #90 tabs bisoprolol fumarate 5 mg tablet 5 mg PO DAILY BLOOD PRESSURE 90 05/24/22 days #90 tabs clopidogrel 75 mg tablet 75 mg PO DAILY Blood thinner 90
[2022-11-07 13:32] VITALS: BP 143/70; PULSE 87; RESP 19; TEMP 36.7
== END 2022-11-07 13:34 | disposition home or self-care (01) ==
PROVIDERS: Emergency Provider Student in an Organized Health Care Education/Training Program; PCP Family Medicine
DX: S32.010A Wedge compression fracture of first lumbar vertebra, initial encounter for closed fracture (principal); S32.020A Wedge compression fracture of second lumbar vertebra, initial encounter for closed fracture; F41.9 Anxiety disorder, unspecified; E78.5 Hyperlipidemia, unspecified; I10 Essential (primary) hypertension
CPT/HCPCS: 99283

== ENCOUNTER 2023-01-18 14:34 | Inpatient (IN) | payer MEDICARE, SELFPAY ==
[2023-01-18] VITALS (11 sets, daily range): BP systolic 129–174; BP diastolic 55–79; PULSE 61–68; RESP 16–20; TEMP 36.8–37; O2SAT 95–97; BMI 24.0; BMI 23.3
--- NOTE | 2023-01-18 14:45 | CT_ITS ---
FINAL REPORT TECHNIQUE: Thin section axial images were obtained through the lumbar spine without contrast. Sagittal and coronal reconstruction images were obtained from the axial data. Exam was performed using dose reduction techniques. CLINICAL HISTORY: previous falls, AMS, back pain COMPARISON: 11/06/2022 FINDINGS: When compared to the prior CT examination of November 06 there has been interval increase in loss of height of the L1 and L2 vertebral bodies. At the L1 level now there is 25% loss of vertebral body height, and the fracture line extends to the posterior cortex with mild retropulsion producing less than 25% canal stenosis. At the L2 level there is less than loss of vertebral body height, without evidence of retropulsion or canal stenosis. There is grade 1 anterolisthesis of L4 on L5, unchanged. There is multilevel degenerative disease with disc space narrowing and osteophyte formation. Paraspinal soft tissues are within normal limits. There is no paraspinal mass or fluid collection. There is a spinal stimulator which enters the lumbar canal at the L2-3 level. IMPRESSION: There has been an increase in loss of height of the L1 and L2 fractures as described. At the L1 fracture there is now 25% loss of height and mild retropulsion which produces less than 25% canal stenosis. The L2 level shows less than 25% loss of height without retropulsion or canal stenosis. Grade 1 anterolisthesis L4-5 remains present. Reviewed, Interpreted and Dictated by Elisa Crockett MD Transcribed by Sabrina Bravo Authenticated and [facility]
--- NOTE | 2023-01-18 14:45 | CT_ITS ---
FINAL REPORT TECHNIQUE: Thin section axial images were obtained through the thoracic spine without contrast. Sagittal and coronal images were obtained from the axial data. CLINICAL HISTORY: previous falls, AMS, back pain COMPARISON: None FINDINGS: There is no acute fracture of the thoracic spine. There is no malalignment. Multilevel degenerative disease is noted with osteophyte formation and multilevel disc space narrowing. There is a spinal stimulator with its proximal tip at the T8 level. No acute paraspinal abnormality is identified. IMPRESSION: No acute osseous abnormality of the thoracic spine. Degenerative disc disease. Reviewed, Interpreted and Dictated by Elisa Crockett MD Transcribed by Sabrina Bravo Authenticated and [facility]
--- NOTE | 2023-01-18 14:45 | CT_ITS ---
FINAL REPORT TECHNIQUE: Thin section axial images were obtained through the cervical spine without contrast. Multiplanar reconstruction images were obtained from the axial data. Exam was performed using dose reduction techniques. CLINICAL HISTORY: previous falls, AMS, back pain COMPARISON: 11/06/2022 FINDINGS: There is no acute fracture or acute malalignment of the cervical spine. There is no evidence of unilateral or bilateral facet lock. Vertebral body height is preserved. There is multilevel degenerative disc disease which is unchanged from prior exam. No acute paraspinal abnormality is identified. IMPRESSION: Multilevel degenerative disc disease without acute osseous abnormality. Reviewed, Interpreted and Dictated by Elisa Crockett MD Transcribed by Nely Farrell Authenticated and [facility]
--- NOTE | 2023-01-18 14:45 | CT_ITS ---
FINAL REPORT TECHNIQUE: Thin section axial images were obtained from skull base to vertex without contrast. Coronal reconstruction images were obtained from the axial data. Exam was performed using dose reduction technique. CLINICAL HISTORY: previous falls, AMS, back pain COMPARISON: 11/06/2022 FINDINGS: There is age-appropriate atrophy. There is no mass effect or midline shift. There is no intracranial hemorrhage. There is no hydrocephalus. Periventricular low density is likely related to changes of chronic small vessel ischemia. There are chronic lacunar infarcts infarct in the left thalamus and left basal ganglia. The soft tissues are without acute abnormality. No acute osseous abnormality is identified. IMPRESSION: No acute intracranial abnormality. Chronic appearing findings as detailed above. Reviewed, Interpreted and Dictated by Elisa Crockett MD Transcribed by Nely Farrell Authenticated and [facility]
--- NOTE | 2023-01-18 14:45 | XR_ITS ---
FINAL REPORT CLINICAL HISTORY: previous falls, AMS, back pain FINDINGS: SINGLE VIEW PELVIS: A single view of the pelvis was obtained. There is no acute fracture or dislocation. There is degenerative disease of the hips bilaterally. Soft tissues are unremarkable. IMPRESSION: Degenerative change with no acute bony abnormality. Reviewed, Interpreted and Dictated by Elisa Crockett MD Transcribed by Lacey Vasquez Authenticated and [facility]
--- NOTE | 2023-01-18 14:45 | XR_ITS ---
FINAL REPORT CLINICAL HISTORY: previous falls, AMS, back and chest pain FINDINGS: A single view of the chest was obtained. The heart and mediastinum are normal. The lungs are clear. There is probable underlying emphysema. There is no pleural or pericardial effusion. There is no pneumothorax. No acute osseous abnormality is seen. IMPRESSION: No acute cardiopulmonary process. Reviewed, Interpreted and Dictated by Elisa Crockett MD Transcribed by Lacey Vasquez Authenticated and [facility]
--- NOTE | 2023-01-18 14:48 | HMH.EDGENADL ---
Discharge Plan Disposition Patient Disposition: Admitted Prescriptions Prescriptions: No Action ascorbate calcium (vitamin C) 500 mg tablet 500 mg PO DAILY calcium carbonate [Calcium 600] 600 mg calcium (1,500 mg) tablet 600 mg PO DAILY bisoprolol fumarate 5 mg tablet 5 mg PO DAILY 90 Days Qty: 90 0RF Ocuvite Adult 50 Plus 250 mg (90 mg-160 mg) capsule 1 cap PO DAILY duloxetine 60 mg capsule, delayed rel sprinkle 120 mg PO DAILY Qty: 30 5RF cetirizine [Zyrtec] 10 mg tablet 10 mg PO DAILY Qty: 30 3RF clopidogrel 75 mg tablet 75 mg PO DAILY 90 Days Qty: 90 0RF simvastatin 40 mg tablet See Rx Instructions .ROUTE .COMPLEX Qty: 90 0RF Dose Instruction: TAKE 1 TABLET EVERY EVENING FOR CHOLESTEROL Rx Instructions: TAKE 1 TABLET EVERY EVENING FOR CHOLESTEROL amlodipine 5 mg tablet See Rx Instructions .ROUTE .COMPLEX Qty: 90 0RF Dose Instruction: TAKE 1 TABLET EVERY DAY FOR BLOOD PRESSURE Rx Instructions: TAKE 1 TABLET EVERY DAY FOR BLOOD PRESSURE alprazolam 1 mg tablet 1 mg PO QHS Qty: 30 2RF cholecalciferol (vitamin D3) 10 MCG tablet 400 unit PO DAILY Referrals Follow up/Referrals: Provider,Referral, MD [Primary Care Provider] - See instructions Clinical Impressions Clinical Impression: Rhabdomyolysis, Intoxication Discharge ED Provider: Woodrow Garcia General Adult HPI <Anita Ibarra DO - Last Filed: 01/18/23 15:37> General Chief complaint: Weakness Stated complaint: weakness Time Seen by Provider: 01/18/23 14:42 Mode of Arrival: EMS Source of Information: Patient Limitations: No Limitations Description of Symptoms (Recalled from ER Triage Doc. by RN): Patient states she was answering the phone when she decided to lay on the floor because it was more comfortable. States she did not fall and has no complaints at this time. Per patient her neighbors told her she had to come to the hospital and thats why she is here. History of Present Illness HPI narrative: This patient is a 78-year-old female with a history of chronic back pain and parkinsonian syndrome presented to the emergency department for evaluation by EMS. Per EMS, the patient was found lying on the floor by neighbor, they called EMS and had her brought in for evaluation. According to the patient, she went to answer her phone today, but did not get to it fast enough. She states that her back has been hurting, and she thought that she might as well not waste the trip. She states that she laid down on the floor to rest, because it was comfortable. She denies any recent falls. She notes that she has chronic back pain as a result of her lumbar spine fractures, for which she was evaluated for 2 months ago here in the emergency department. On medical record review, patient takes oxycodone as well as alprazolam for her symptoms. She denies taking extra of any medications. She currently states that she is feeling fine and is not having any back pain. She denies any concerns or complaints at this time. Related Data Home Medications Medication Instructions Recorded Confirmed ascorbate calcium (vitamin C) 500 500 mg PO DAILY Supplement 11/14/17 01/14/23 mg tablet cholecalciferol (vitamin D3) 10 400 unit PO DAILY Supplement 04/18/21 01/14/23 mcg (400 unit) tablet calcium carbonate 600 mg calcium 600 mg PO DAILY SUPPLIMENT 05/15/22 01/14/23 (1,500 mg) tablet (Calcium) xctigxwb-ezm-yuprf2 250 mg-dha 90 1 cap PO DAILY 10/29/22 01/14/23 mg-epa 160 bc-qliy-kzag-zeax capsule (Ocuvite Adult 50 Plus) Previous Rx's Medication Instructions Recorded bisoprolol fumarate 5 mg tablet 5 mg PO DAILY BLOOD PRESSURE 90 05/24/22 days #90 tabs clopidogrel 75 mg tablet 75 mg PO DAILY Blood thinner 90 06/01/22 days #90 tabs simvastatin 40 mg tablet See Rx Instructions .Route 08/27/22 .COMPLEX #90 tabs duloxetine 60 mg capsule,delayed 120 mg PO DAILY Chronic 10/29/22 re
--- NOTE | 2023-01-18 14:50 | PC.NURSE ---
Respiratory notified of VBG.
[2023-01-18 14:55] LABS: Chloride 97 mmol/L (98-107); Sodium 132 mmol/L (136-145)
[2023-01-18 14:55] LABS: Microscopic, Urine URINE MICROSCOPIC (MICROSCOPIC)
[2023-01-18 14:56] LABS: Potassium 3.4 mmoL/L (3.5-5.1)
[2023-01-18 14:57] LABS: Appearance,Urine CLEAR (Clear); Bilirubin,Urine Negative (Negative); Blood, Urine Negative (Negative); Color,Urine YELLOW (Yellow); Glucose,Urine (UA) Negative (Negative); Ketones,Urine 1+ (Negative); Leukocyte Esterase,Urine Negative (Negative); Nitrate,Urine Negative (Negative); PH,Urine 6.5 (5.0-8.5); Protein,Urine TRACE (Negative); Urobilinogen,Urine 0.2 EU/dl (0.2)
[2023-01-18 14:58] LABS: VBG Base Excess -1.1 mmol/L (-2.4-2.3); VBG HCO3 23.7 mmol/L (23-30); VBG Oxygen Saturation 74.1 % (50-70); VBG PCO2 38.8 mmol/L (35-51); VBG PO2 38.6 mmol/L (28-40); VBG Total CO2 24.8 mmol/L (23-27)
[2023-01-18 14:58] LABS: Alanine Aminotransferase 21 U/L (12-78); Alkaline Phosphatase 81 U/L (38-126); Anion Gap 14.4 mEq/L (5-15); Aspartate Amino Transferase 45 U/L (14-36); Bilirubin,Total 1.2 mg/dl (0.2-1.3); Blood Urea Nitrogen 9 mg/dl (7-17); Carbon Dioxide 24 mmol/L (22.0-30.0); Creatinine Clearance Estimated 41 mL/min (50-200); Estimated Glomerular Filt Rate 96 ml/min (>60); GFR (African American) 117 ML/MIN (>60); Glucose 104 mg/dl (74-100)
[2023-01-18 14:59] LABS: Albumin/Globulin Ratio 1.4 (1.1-1.8); Globulin 2.8 g/dL (1.3-3.2); Salicylate < 1.0 mg/dL (2.0-20.0); Total Protein,Serum 6.8 g/dl (6.3-8.2)
[2023-01-18 15:02] LABS: Basophils % 0.2 % (0.1-2.0); Eosinophils # 0.1 K/mm3 (0.0-0.4); Eosinophils % 0.7 % (0.1-12.0); Hematocrit 43.7 % (37.0-47.0); Hemoglobin 14.4 g/dL (12.2-16.2); Lymphocytes # 0.9 K/mm3 (0.7-4.5); Lymphocytes % 8.4 % (10-50); Mean Corpuscular Hemoglobin 31.1 pg (27.0-31.2); Mean Corpuscular Volume 94.1 fl (81-99); Mean Platelet Volume 8.4 fl (7.4-10.4); Monocytes # 0.4 K/mm3 (0.1-1.0); Monocytes % 3.9 % (1.7-9.3); Neutrophils # 9.7 K/mm3 (1.8-7.8); Neutrophils % 86.8 % (37.0-80.0); Platelet Count 232 K/mm3 (142-424); Red Blood Count 4.65 M/mm3 (4.20-5.40); Red Cell Distribution Width 14.8 % (11.5-17.5); White Blood Count 11.2 K/mm3 (4.8-10.8)
[2023-01-18 15:05] LABS: Acetaminophen < 10 ug/ml (10-30)
[2023-01-18 15:09] LABS: Barbiturates Screen,Urine Negative ng/ml (<200)
[2023-01-18 15:10] LABS: Benzodiazepines Screen,Urine Positive ng/ml (<200)
[2023-01-18 15:11] LABS: Amphetamine/Metha Screen,Urine Negative ng/ml (<1000); Methadone Screen,Urine Negative ng/ml (<300)
[2023-01-18 15:11] LABS: MANUAL DIFFERENTIAL MANUAL DIFFERENTIAL (MANUAL DIFF)
[2023-01-18 15:12] LABS: Cannabinoid Screen,Urine Negative ng/ml (<50)
[2023-01-18 15:13] LABS: Cocaine Screen,Urine Negative ng/ml (<300); Opiate Screen,Urine Negative ng/ml (<300)
[2023-01-18 15:14] LABS: Phencyclidine Screen,Urine Negative ng/ml (<25)
[2023-01-18 15:20] LABS: Ethyl Alcohol < 10 mg/dl (0-10)
[2023-01-18 15:39] LABS: Lymphocytes % 11 % (10-50); Monocytes % 3 % (2-9); Neutrophils % 86 % (42-76); Platelet Estimate Normal; RBC Morphology Normal; Total Cells Counted 100
[2023-01-18 15:44] LABS: Creatine Kinase 438 U/L (30-135)
--- NOTE | 2023-01-18 15:44 | ECG_ITS ---
APPROVED REPORT Exam: Resting ECG HR:64 bpm ECG Measurements Heart Rate 64 AXES FL 177 P 46 QRSd 82 QRS -11 QT 405 T 11 QTc 415 Conclusion SINUS RHYTHM LOW QRS VOLTAGE IN PRECORDIAL LEADS [QRS DEFLECTION < 1.0 mV IN CHEST LEADS] BORDERLINE ECG UNCONFIRMED REPORT Electronically signed by : Heriberto Meeks MD 01/21/2023 17:17:22
--- NOTE | 2023-01-18 16:55 | PC.NURSE ---
pt ambulated to bathroom, given dry panties and a gown
--- NOTE | 2023-01-18 18:17 | PC.NURSE ---
Rounded on pt no needs at this time,daughter n law at bs
[2023-01-18 20:19] LABS: Creatine Kinase 1049 U/L (30-135)
--- NOTE | 2023-01-18 20:41 | PC.NURSE ---
patient being admitted to 2nd Floor at this time.
--- NOTE | 2023-01-18 20:42 | PC.NURSE ---
on phone with hospitalist
--- NOTE | 2023-01-18 20:43 | PC.NURSE ---
OBSERVATION ADMISSION TO 206 WITH DX OF RHABDO TO SERVICE OF HOSPITALIST.
--- NOTE | 2023-01-18 21:55 | PC.NURSE ---
pt arrived to floor via stretcher @21:52
--- NOTE | 2023-01-18 22:52 | EXP.HP ---
History of Present Illness *Admission Date: 01/18/23 *Reason for visit:: rhabdomyolysis *History of present illness: 78-year-old female presented to ED via EMS after being found on the floor lying for unknown amount of time. PMHX of chronic back pain, CVA, HTN, and parkinsonian syndrome According to the patient, she went to answer her phone today, but did not get to it fast enough. She states that her back has been hurting, and she thought that she might as well not waste the time getting back up. She notes that she has chronic back pain as a result of her lumbar spine fractures, for which she was evaluated for 2 months ago here in the emergency department. On medical record review, patient takes oxycodone as well as alprazolam for her symptoms. She denies taking extra of any medications. Her ED workup revealed hypokalemia, and elevated CKfrom [address] of lumbar spine reveals loss of height in L1 and L2. The CT of the head and cervical spine are without abnormalities. The patient received 2 L of LR in the ED and was started on 145 mL/hr infusion. The ED physician consulted the hospitalist team for further medical management. The patient arrives to the medical floor in no acute distress. Urine does not appear dark in color. Will repeat BMP and CK at 1 a.m. and again in the morning. [facility] Disclaimer: The information contained in this section may have been updated after the patient was seen, as this information can be updated by other users. Medical History (Updated 01/18/23 @ 23:32 by RAMIRO Guidry) Anxiety Hyperlipidemia Hypertension Lung cancer Numbness and tingling Surgical History H/O mastectomy History of cholecystectomy Family History Mother Cancer Father Stroke Social History (Updated 01/18/23 @ 22:14 by Tammi Pierson RN) Smoking Status: Never smoker smoking status stop date: 01/20/2022 second hand exposure: No alcohol intake: never substance use type: denies use current occupational status: retired Travel in the last 8 weeks: None household members: none housing: house current occupational exposures/hazards: No caffeine: Yes Review of Systems *Cardiovascular Cardiovascular: Reports system reviewed and no additional complaints, except as documented *Respiratory Respiratory: Reports system reviewed and no additional complaints, except as documented *Gastrointestinal Gastrointestinal: Reports system reviewed and no additional complaints, except as documented *Genitourinary Genitourinary: Reports system reviewed and no additional complaints, except as documented *Musculoskeletal Musculoskeletal: Reports back pain and Reports muscle weakness *Neurologic Neurologic: Reports system reviewed and no additional complaints, except as documented Meds Home Medications and Allergies Home Medications Medication Instructions Recorded Confirmed Type ascorbate calcium (vitamin C) 500 500 mg PO DAILY Supplement 11/14/17 01/18/23 History mg tablet cholecalciferol (vitamin D3) 10 400 unit PO DAILY Supplement 04/18/21 01/18/23 History mcg (400 unit) tablet calcium carbonate 600 mg calcium 600 mg PO DAILY SUPPLIMENT 05/15/22 01/18/23 History (1,500 mg) tablet (Calcium) bisoprolol fumarate 5 mg tablet 5 mg PO DAILY BLOOD PRESSURE 90 05/24/22 01/18/23 Rx days #90 tabs clopidogrel 75 mg tablet 75 mg PO DAILY Blood thinner 90 06/01/22 01/18/23 Rx days #90 tabs duloxetine 60 mg capsule,delayed 120 mg PO DAILY Chronic 10/29/22 01/18/23 Rx release sprinkle neuropathic pain, mood disorder #30 caps zteirtbv-odr- 250 mg-dha 90 1 cap PO DAILY Vitamin 10/29/22 01/18/23 History mg-epa 160 dw-cajd-seze-zeax capsule (Ocuvite Adult 50 Plus) cetirizine 10 mg tablet (Zyrtec) 10 mg PO DAILY hives #30 tabs 11/12/22 01/18/23 Rx alprazolam 1 mg tablet 1
[2023-01-19 01:07] LABS: Chloride 100 mmol/L (98-107)
[2023-01-19 01:08] LABS: Potassium 3.3 mmoL/L (3.5-5.1); Sodium 132 mmol/L (136-145)
[2023-01-19 01:11] LABS: Anion Gap 11.3 mEq/L (5-15); Blood Urea Nitrogen 6 mg/dl (7-17); Calcium 8.3 mg/dl (8.4-10.2); Carbon Dioxide 24 mmol/L (22.0-30.0); Creatinine Clearance Estimated 40 mL/min (50-200); Estimated Glomerular Filt Rate 119 ml/min (>60); GFR (African American) 144 ML/MIN (>60); Glucose 96 mg/dl (74-100)
[2023-01-19 01:29] LABS: Creatine Kinase 1164 U/L (30-135)
[2023-01-19 02:02] LABS: Magnesium 1.8 mg/dl (1.6-2.3)
[2023-01-19 04:00] VITALS: BP 145/69; PULSE 73; RESP 16; TEMP 36.6; O2SAT 93; BMI 23.3
[2023-01-19 06:53] LABS: Basophils % 0.2 % (0.1-2.0); Eosinophils # 0.1 K/mm3 (0.0-0.4); Eosinophils % 1.6 % (0.1-12.0); Hematocrit 39.5 % (37.0-47.0); Lymphocytes # 1.2 K/mm3 (0.7-4.5); Lymphocytes % 13.1 % (10-50); Mean Corpuscular HGB Conc 32.4 g/dL (31.8-35.4); Mean Corpuscular Hemoglobin 30.7 pg (27.0-31.2); Mean Corpuscular Volume 94.6 fl (81-99); Mean Platelet Volume 8.8 fl (7.4-10.4); Monocytes # 0.5 K/mm3 (0.1-1.0); Monocytes % 5.4 % (1.7-9.3); Neutrophils % 79.7 % (37.0-80.0); Platelet Count 232 K/mm3 (142-424); Red Blood Count 4.17 M/mm3 (4.20-5.40); Red Cell Distribution Width 14.9 % (11.5-17.5); White Blood Count 8.8 K/mm3 (4.8-10.8)
[2023-01-19 06:57] LABS: Anion Gap 15.1 mEq/L (5-15); Blood Urea Nitrogen 5 mg/dl (7-17); Calcium 8.6 mg/dl (8.4-10.2); Carbon Dioxide 22 mmol/L (22.0-30.0); Chloride 100 mmol/L (98-107); Creatine Kinase 878 U/L (30-135); Creatinine Clearance Estimated 40 mL/min (50-200); Estimated Glomerular Filt Rate 119 ml/min (>60); GFR (African American) 144 ML/MIN (>60); Glucose 87 mg/dl (74-100); Potassium 4.1 mmoL/L (3.5-5.1); Sodium 133 mmol/L (136-145)
[2023-01-19 07:30] VITALS: BP 164/70; PULSE 75; RESP 17; TEMP 36.6; O2SAT 95
[2023-01-19 07:57] LABS: Hemoglobin 12.8 g/dL (12.2-16.2)
--- NOTE | 2023-01-19 08:58 | HMH.PHAINT1 ---
Pharmacy Intervention Comments: MEDICATION RECONCILIATION COMPLETED ON PATIENT USING EXTERNAL FILL HISTORY FROM PHARMACY AND LIST FROM DR. MEYERS'S OFFICE. -EMMA [id number]
--- NOTE | 2023-01-19 10:52 | EXP.PN ---
Subjective *Date: 01/19/23 *Time: 10:52 Interval history: The patient is seen and examined today. She is accompanied by her daughter who is at bedside. I am accompanied by her nurse. Nursing staff report that she remains afebrile with stable heart rates and increasing blood pressures and saturating appropriately on room air. The patient lives alone in [facility] and she typically ambulates with a walker. Recent office visits with her PCP and neurologist are noted. 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 This morning the patient reports left ear fullness, sinus congestion and improved sensorium. Her morning labs identify a resolved leukocytoses and stable hemoglobin. Her electrolytes identify an improved sodium which is chronically low and most likely related to SSRI therapy for her age. Her potassium chloride carbon dioxide and BUN are normal. Her creatinine is normal at 0.5. Her glucose trend is under 100 and her magnesium is normal. Exam Data for Last 24 hours Vital signs and Labs for Last 24 Hours: Temp Pulse Resp BP Pulse Ox O2 Del Method 98 F 75 17 164/70 H 95 Room Air 01/19/23 07:30 01/19/23 07:30 01/19/23 07:30 01/19/23 07:30 01/19/23 07:30 01/19/23 07:30 Laboratory Results - last 24 hr 01/18/23 14:41: WBC 11.2 H, RBC 4.65, Hgb 14.4, Hct 43.7, MCV 94.1, MCH 31.1, MCHC 33.0, RDW 14.8, Plt Count 232, MPV 8.4, Neut % (Auto) 86.8 H, Lymph % (Auto) 8.4 L, [place] % (Auto) 3.9, Eos % (Auto) 0.7, Baso % (Auto) 0.2, Neut # (Auto) 9.7 H, Lymph # (Auto) 0.9, [place] # (Auto) 0.4, Eos # (Auto) 0.1, Baso # (Auto) 0.0, Total Counted 100, Neutrophils % (Manual) 86 H, Lymphocytes % (Manual) 11, Monocytes % (Manual) 3, Platelet Estimate Normal, RBC Morphology Normal, Sodium 132 L, Potassium 3.4 L, Chloride 97 L, Carbon Dioxide 24, Anion Gap 14.4, BUN 9, Creatinine 0.60, Estimated Creat Clear 41, Estimated GFR 96, Est GFR ( Amer) 117, Glucose 104 H, Calcium 9.0, Total Bilirubin 1.2, AST 45 H, ALT 21, Alkaline Phosphatase 81, Total Creatine Kinase 438 H, Total Protein 6.8, Albumin 4.0, Globulin 2.8, Albumin/Globulin Ratio 1.4, Salicylates < 1.0 L, Acetaminophen < 10 L, Plasma/Serum Alcohol < 10 01/18/23 14:45: VBG pH 7.40, VBG pCO2 38.8, VBG pO2 38.6, VBG HCO3 23.7, VBG Total CO2 24.8, VBG O2 Saturation 74.1 H, VBG Base Excess -1.1 01/18/23 14:50: Urine Color Yellow, Urine Appearance Clear, Urine pH 6.5, Ur Specific [place] 1.010, Urine Protein Trace, Urine Glucose (UA) Negative, Urine Ketones 1+, Urine Blood Negative, Urine Nitrate Negative, Urine Bilirubin Negative, Urine Urobilinogen 0.2, Ur Leukocyte Esterase Negative, Urine RBC None, Urine WBC None, Ur Squamous Epith Cells None, Urine Bacteria None, Urine Opiates Screen Negative, Urine Methadone Screen Negative, Ur Barbituates Screen Negative, Ur Phencyclidine Scrn Negative, Ur Amphetamines Screen Negative, U Benzodiazepines Scrn Positive H, Urine Cocaine Screen Negative, U Marijuana (THC) Screen Negative 01/18/23 20:00: Total Creatine Kinase 1049 H* D 01/19/23 00:50: Sodium 132 L, Potassium 3.3 L, Chloride 100, Carbon Dioxide 24, Anion Gap 11.3, BUN 6 L D, Creatinine 0.50 L, Estimated Creat Clear 40, Estimated GFR 119, Est GFR ( Amer) 144 D, Glucose 96, Calcium 8.3 L, Magnesium 1.8, Total Creatine Kinase 1164 H* 01/19/23 06:20: WBC 8.8, RBC 4.17 L, Hgb 12.8 D, Hct 39.5, MCV 94.6, MCH 30.7, MCHC 32.4, RDW 14.9, Plt Count 232, MPV 8.8, Neut % (Auto) 79.7, Lymph % (Auto) 13.1, [place] % (Auto) 5.4, Eos % (Auto) 1.6, Baso % (Auto) 0.2, Neut # (Auto) 7.0, Lymph # (Auto) 1.2, [place] # (Auto) 0.5, Eos # (Auto) 0.1, Baso # (Auto) 0.0, Sodium 133 L, Potassium 4.1 D, Chloride 100, Carbon Dioxide 22, Anion Gap 15.1 H, BUN 5 L, Creatinine 0.50 L, Estimated Creat Clear 40, Estimated GFR 119, Est GFR ( Amer) 144, Glucose 87, Calcium 8.6, Total Creatine Kinase 878 H* I & O for Last 24 hours: Intake & Output 01/16/23 01/17/23 01/18/23 01/19/23 2
--- NOTE | 2023-01-19 11:24 | HMH.PTEV ---
Physical Therapy Evaluation Rehab PT IP Evaluation Start: 01/18/23 23:38 Freq: ONCE Status: Active Protocol: Document 01/19/23 11:20 PHOKATHERINE (Rec: 01/19/23 11:24 PHORNE [id number]) Subjective/History History History 78 yowf adm to [facility] with rhabdo after being found down at home for unknown length of time. Hx of Chronic LBP, CVA, HTN, parkinson's disease. She reports she has assistance as needed with all ADLs and uses a RW for all mobility at home with ramp to enter the home. Subjective Subjective Pt reports no c/o pain or dizziness at this time. New diagnosis of cancer in past 12 No months? Rehab PT IP Eval Objective Appearance Patient Behavior Appropriate Patient Orientation Person,Place,Time Difficulty following instructions none Speech Pattern Clear Ambulation Patient Able to Ambulate Yes Ambulation Observation IP General Gait Pattern Observation Wide Based Gait,Shuffling Step Ambulation Distance (feet) 75 Ambulation Assistive Device Rolling Walker Ambulation Ability Supervision/Stand by Balance Ability to Arise Able, uses arms to help Sitting Balance Steady, safe Standing Balance Steady, wide stance Dynamic Sitting Balance Ability Good Dynamic Standing Balance Ability Fair Transfers Bed Transfer Ability Supervision/Stand by Chair Transfer Ability Supervision/Stand by Sit to Stand Bed Transfer Ability Supervision/Stand by Sit to Stand Chair Transfer Ability Supervision/Stand by ROM All Extremities PT ROM Status WFL MMT All Extremities PT MMT WFL Rehab PT IP prob,goals,plan Problems Date of Evaluation: 01/19/23 Discharge Plan PT Discharge Plan Pt is currently most appropriate for rehab placement once medically stable for d/c. Recommend Home Health therapy as needed after return home. Eval Complexity Eval Charge Codes 32184 - High Complexity PHYSICIAN CERTIFICATION: I certify the specified therapy services for Jeane Acuna are required, authorized, and reviewed every 30 days.
[2023-01-19 16:00] VITALS: BP 156/82; PULSE 71; RESP 18; TEMP 36.6; O2SAT 95
--- NOTE | 2023-01-19 17:27 | PC.NURSE ---
Patient tolerating fluids throughout shift. Patient continuing to drink fluids and move as tolerated.
[2023-01-19 20:00] VITALS: BP 135/70; PULSE 69; RESP 18; TEMP 37.2; O2SAT 94
[2023-01-20 04:00] VITALS: BP 153/74; PULSE 77; RESP 16; TEMP 36.6; O2SAT 95; BMI 23.5
--- NOTE | 2023-01-20 05:57 | PC.NURSE ---
Patient has had been able to rest some tonight. RN did speak to provider about a cough the RN noticed on rounds. No new orders. Patient remains with a Patel for accurate I&Os. No other issues noted
[2023-01-20 07:30] VITALS: BP 173/94; PULSE 79; RESP 19; TEMP 36.6; O2SAT 94
[2023-01-20 07:59] LABS: Chloride 96 mmol/L (98-107); Sodium 130 mmol/L (136-145)
[2023-01-20 08:02] LABS: Blood Urea Nitrogen 3 mg/dl (7-17); Creatine Kinase 256 U/L (30-135); Creatinine Clearance Estimated 41 mL/min (50-200); Estimated Glomerular Filt Rate 96 ml/min (>60); GFR (African American) 117 ML/MIN (>60)
[2023-01-20 08:03] LABS: Anion Gap 9.9 mEq/L (5-15); Calcium 8.4 mg/dl (8.4-10.2); Carbon Dioxide 27 mmol/L (22.0-30.0); Glucose 119 mg/dl (74-100)
[2023-01-20 08:09] LABS: NT Pro Brain Natriuretic Pep. 1070 pg/mL (0-450)
[2023-01-20 08:31] LABS: Potassium 2.9 mmoL/L (3.5-5.1)
--- NOTE | 2023-01-20 09:28 | EXP.DC.SUM ---
General Admission date:: 01/18/23 Discharge date: 01/20/23 HPI HPI HPI: 78-year-old female presented to ED via EMS after being found on the floor lying for unknown amount of time. PMHX of chronic back pain, CVA, HTN, and parkinsonian syndrome According to the patient, she went to answer her phone today, but did not get to it fast enough. She states that her back has been hurting, and she thought that she might as well not waste the time getting back up. She notes that she has chronic back pain as a result of her lumbar spine fractures, for which she was evaluated for 2 months ago here in the emergency department. On medical record review, patient takes oxycodone as well as alprazolam for her symptoms. She denies taking extra of any medications. Her ED workup revealed hypokalemia, and elevated CKfrom [address] of lumbar spine reveals loss of height in L1 and L2. The CT of the head and cervical spine are without abnormalities. The patient received 2 L of LR in the ED and was started on 145 mL/hr infusion. The ED physician consulted the hospitalist team for further medical management. The patient arrives to the medical floor in no acute distress. Urine does not appear dark in color. Will repeat BMP and CK at 1 a.m. and again in the morning. Hospital Course Hospital Course Hospital Course: The patient was admitted to the [facility] floor with IV fluid resuscitation and routine lab evaluation. Her [id number] remained at bedside throughout her stay. The patient reported concerns with left ear fullness and discomfort. An otoscope evaluation identified left otitis media and she was started on nasal corticosteroid therapy and cephalosporin antibiotic therapy. Her laboratory studies identified a downward trend of her CK, improved creatinine and low potassium which was replaced. Physical therapy evaluated the patient and made recommendations. Patient and family insisted that she be discharged home and requested home health care. With her identified improvement, improved laboratory results and earache the patient will be discharged home with home health care. Case management assisted with home health care needs. She already has a rolling walker at home. She will be discharged on the addition of Flonase and Omnicef. We recommend that she see her PCP and have conversations concerning she reducing the dose of her Xanax and Cymbalta therapy. The patient should see her PCP next week and follow-up with consultants as scheduled. Exam Data for Last 24 hours Vital signs and Labs for Last 24 Hours: Temp Pulse Resp BP Pulse Ox O2 Del Method 97.8 F 79 19 173/94 H 94 L Room Air 01/20/23 07:30 01/20/23 07:30 01/20/23 07:30 01/20/23 07:30 01/20/23 07:30 01/20/23 07:30 Laboratory Results - last 24 hr 01/20/23 07:12: Sodium 130 L, Potassium 2.9 L* D, Chloride 96 L, Carbon Dioxide 27, Anion Gap 9.9, BUN 3 L D, Creatinine 0.60, Estimated Creat Clear 41, Estimated GFR 96, Est GFR ( Amer) 117, Glucose 119 H, Calcium 8.4, Total Creatine Kinase 256 H D, NT-Pro-B Natriuret Pep 1070 H I & O for Last 24 hours: Intake & Output 01/17/23 01/18/23 01/19/23 01/20/23 23:59 23:59 23:59 23:59 Intake Total 1050 / 1050 1740 / 1740 Output Total 500 / 500 2050 / 3350 1999 / 1999 Balance -500 / -500 -1000 / -2300 -260 / -260 Weight 56.109 kg 56.109 kg 56.518 kg Constitutional Constitutional: no acute distress, average body habitus and cooperative *Routine HEENT Exam Head: Present normocephalic and atraumatic Eye: Present EOMI and PERRL ENT: Present mucous membranes moist and external ear normal Comments: Left otitis media *Routine Neck Exam Neck: Present supple and trachea midline; Absent lymphadenopathy *Routine Respiratory Exam Respiratory: Present CTA bilaterally and symmetric chest movement; Absent respiratory distress *Routine Cardiovascular Exam Cardiovascular: Present RRR, Normal S1 and Normal S2 *Routine Extremities Exam
--- NOTE | 2023-01-20 09:55 | EXP.EVENT.NO ---
The patient was due to be discharged this morning and nursing staff reported difficulty with morning somnolence and dysphagia with her morning meds. Nursing staff report that she remains afebrile with stable vital signs and saturating appropriately on room air. We discussed how inhaled nasal corticosteroids can dry the back of the throat. Son and [id number] at bedside identified difficulty. We discussed canceling discharge today and requesting speech therapy evaluation for the a.m. We discussed care management consultation for next site of care. We will decrease her nightly benzodiazepine dose. Morning labs have been ordered including potassium level.
--- NOTE | 2023-01-20 12:31 | XR_ITS ---
PROCEDURE INFORMATION: Exam: XR Chest Exam date and time: 01/20/2023 12:32 PM Age: 78 years old Clinical indication: Cough TECHNIQUE: Imaging protocol: Radiologic exam of the chest. Views: 1 view. Total images: 1 COMPARISON: CR XR CHEST PORTABLE 01/18/2023 3:19 PM FINDINGS: Tubes, catheters and devices: Epidural stimulator is noted. Lungs: No focal pneumonia or pneumothorax. Pleural spaces: No pleural effusions. Heart/Mediastinum: Unremarkable. No cardiomegaly. Vasculature: Mild atherosclerotic disease. Bones/joints: Unremarkable. IMPRESSION: 1. No focal pneumonia or pneumothorax. 2. No pleural effusions.
--- NOTE | 2023-01-20 12:33 | PC.NURSE ---
MD notified of RN's concern for patient's metal status change from yesterday evening. Patient very sleepy and somnolent this morning and has a cough that was not perilously noted. MD at bedside, no new orders at this time.
[2023-01-20 15:28] VITALS: BP 137/69; PULSE 80; RESP 15; TEMP 36.9; O2SAT 92
[2023-01-20 20:00] VITALS: BP 133/68; PULSE 69; RESP 18; TEMP 37; O2SAT 93
[2023-01-21 04:00] VITALS: BP 149/83; PULSE 70; RESP 18; TEMP 37; O2SAT 93; BMI 23.4
--- NOTE | 2023-01-21 05:12 | PC.NURSE ---
At the beginning of shift Patient was AxO 4 she was eating ice cream and communicating appropriately. As shift has gone on patient has returned to a lethargic state. Patient still has the strong non-productive cough. Patient remains with a Patel to make sure they have accurate IxOs. No other issues noted
[2023-01-21 06:14] LABS: Chloride 96 mmol/L (98-107); Sodium 128 mmol/L (136-145)
[2023-01-21 06:17] LABS: Blood Urea Nitrogen 4 mg/dl (7-17); Creatinine Clearance Estimated 41 mL/min (50-200); Estimated Glomerular Filt Rate 96 ml/min (>60); GFR (African American) 117 ML/MIN (>60)
[2023-01-21 06:18] LABS: Anion Gap 4.9 mEq/L (5-15); Calcium 8.1 mg/dl (8.4-10.2); Carbon Dioxide 30 mmol/L (22.0-30.0); Glucose 109 mg/dl (74-100)
[2023-01-21 06:46] LABS: Potassium 2.9 mmoL/L (3.5-5.1)
[2023-01-21 07:49] VITALS: BP 141/76; PULSE 77; RESP 18; TEMP 37.1; O2SAT 94
--- NOTE | 2023-01-21 07:50 | HMH.SLDYSPHA ---
Speech & Language Evaluation Speech/Language Dysphagia Evaluation Start: 01/21/23 07:43 Freq: ONCE Status: Active Protocol: Document 01/21/23 07:43 ALEX (Rec: 01/21/23 07:50 JULIOCELESTE [id number]) Dysphagia Assess/Goals/Plan Assessment Date of Evaluation: 01/21/23 Evaluation Type Initial Certification Assessment/Problems dysphagia per MD order Does Patient Qualify for Service No Qualify/Failure Comment Based on clinical observations made throughout CSE, oropharyngeal phase of the swallow and mastication appear to be WFL, no further skilled speech therapy services are warranted. Recommendations PHYSICIAN CERTIFICATION: The specified therapy services are required, authorized, and reviewed every 30 days. Diet Recommendations Normal Liquid Type Recommendations Normal/Thin SL Swallow Guidelines Standard Aspiration Prec. Dysphagia Swallow Precautions/Strategies Sitting Upright (90 deg),Small Bites and Sips,Alternate Liquids/Solids Place Food on Either side of Mouth Plan Pt/Guardian verbally ack understanding Yes of dx/prognosis/goals G -code Required No Education Instructions provided Discussed CSE results and continuation of current diet with pt, nursing, and care management all of which expressed understanding. Pt/Caregiver able to recall information Able to recall/restate Reinforcement needed No Speech & Language HPI History Present Illness Description of Patient Problem PLANS EXAMINER pulled following information from chart review and ER documentation 01/18/23, 78-year-old female presented to ED via EMS after being found on the floor lying for unknown amount of time. PMHX of chronic back pain, CVA, HTN , and parkinsonian syndrome According to the patient, she went to answer her phone today , but did not get to it fast enough. She states that her back has been hurting, and she thought that she might as well not waste the time getting back up. She notes that she has chronic back pain
[2023-01-21 08:04] LABS: Magnesium 1.3 mg/dl (1.6-2.3)
--- NOTE | 2023-01-21 10:07 | HMH.OTEV ---
OT Inpatient Evaluation Rehab OT IP Evaluation Start: 01/19/23 10:54 Freq: ONCE Status: Active Protocol: Document 01/21/23 09:15 JUAN DAVIDERIC (Rec: 01/21/23 09:20 PETERMARIO [id number]) Rehab OT IP Assessment Subjective History 78-year-old female presented to ED via EMS after being found on the floor lying for unknown amount of time. PMHX of chronic back pain, CVA, HTN , and parkinsonian syndrome According to the patient, she went to answer her phone today , but did not get to it fast enough. She states that her back has been hurting, and she thought that she might as well not waste the time getting back up. She notes that she has chronic back pain as a result of her lumbar spine fractures, for which she was evaluated for 2 months ago here in the emergency department. On medical record review, patient takes oxycodone as well as alprazolam for her symptoms. She denies taking extra of any medications. Her ED workup revealed hypokalemia, and elevated CKfrom [address] of lumbar spine reveals loss of height in L1 and L2. The CT of the head and cervical spine are without abnormalities. The patient received 2 L of LR in the ED and was started on 145 mL/hr infusion. The ED physician consulted the hospitalist team for further medical management. The patient arrives to the medical floor in no acute distress. Urine does not appear dark in color. Will repeat BMP and CK at 1 a .m. and again in the morning. Patient lives alone in a 1 story home with 2-3 RAYMOND. Patient has family that lives
--- NOTE | 2023-01-21 10:30 | SW/DCPLANNER ---
Addendum entered by Olivia Valencia 01/21/23 14:33: Etel[facility] w/ [facility] stated that she can accept this patient today SNF level of care. Addendum entered by Olivia Valencia 01/21/23 14:18: Patient information has also been faxed to [facility]. Addendum entered by Olivia Valencia 01/21/23 11:08: Patient information has been faxed to [facility]. Patient is medically stable for discharge at this time. Original Note: I spoke w/ patient and her son regarding plans once medically stable for discharge. Patient currently resides at home in [facility] w/ family and friends checking on her often. PT originally stated that patient could return home w/ home health services. Patient was re-evaluated by PT/OT this AM and SNF level of care is recommended at time of discharge. Patient and her son are agreeable to SNF level of care at time of discharge. Patient prefers to stay at a [facility] facility but does not have a specific facility preference. I will follow up w/ [facility] this AM and fax information if beds are available. Discharge date is unknown at this time.
[2023-01-21 11:39] VITALS: BMI 23.4
--- NOTE | 2023-01-21 14:33 | EXP.DC.SUM ---
General Admission date:: 01/18/23 Discharge date: 01/21/23 HPI HPI HPI: 78-year-old female presented to ED via EMS after being found on the floor lying for unknown amount of time. PMHX of chronic back pain, CVA, HTN, and parkinsonian syndrome According to the patient, she went to answer her phone today, but did not get to it fast enough. She states that her back has been hurting, and she thought that she might as well not waste the time getting back up. She notes that she has chronic back pain as a result of her lumbar spine fractures, for which she was evaluated for 2 months ago here in the emergency department. On medical record review, patient takes oxycodone as well as alprazolam for her symptoms. She denies taking extra of any medications. Her ED workup revealed hypokalemia, and elevated CKfrom [address] of lumbar spine reveals loss of height in L1 and L2. The CT of the head and cervical spine are without abnormalities. The patient received 2 L of LR in the ED and was started on 145 mL/hr infusion. The ED physician consulted the hospitalist team for further medical management. The patient arrives to the medical floor in no acute distress. Urine does not appear dark in color. Will repeat BMP and CK at 1 a.m. and again in the morning. Hospital Course Hospital Course Hospital Course: The patient was admitted to the [facility] floor with IV fluid resuscitation and routine lab evaluation. The patient reported concerns with left ear fullness and discomfort. An otoscope evaluation identified left otitis media and she was started on nasal corticosteroid therapy and cephalosporin antibiotic therapy. Her laboratory studies identified a downward trend of her CK, improved creatinine and low potassium which was replaced. Continues to have leaking some fatigue. After discussion with family and evaluation by physical therapy, it was deemed the patient was better served with short-term rehab. Continue to require potassium and magnesium repletion during admission. Recommend repeat BMP and magnesium in 3 days to evaluate levels. Continue potassium supplementation at discharge. Initial plan was to discharge with home health care however patient too weak to go home and needs further therapy. Stable for discharge at this time. See [facility] for full details. Case management assisted with home health care needs. She already has a rolling walker at home. She will be discharged on the addition of Flonase and Omnicef. We recommend that she see her PCP and have conversations concerning she reducing the dose of her Xanax and Cymbalta therapy. The patient should see her PCP next week and follow-up with consultants as scheduled. Initiated melatonin for assistance with sleep. Exam Data for Last 24 hours Vital signs and Labs for Last 24 Hours: Temp Pulse Resp BP Pulse Ox O2 Del Method 98.7 F 77 18 141/76 H 94 L Room Air 01/21/23 07:49 01/21/23 07:49 01/21/23 07:49 01/21/23 07:49 01/21/23 07:49 01/21/23 13:00 Laboratory Results - last 24 hr 01/21/23 05:30: Magnesium 1.3 L D 01/21/23 05:50: Sodium 128 L, Potassium 2.9 L*, Chloride 96 L, Carbon Dioxide 30, Anion Gap 4.9 L, BUN 4 L D, Creatinine 0.60, Estimated Creat Clear 41, Estimated GFR 96, Est GFR ( Amer) 117, Glucose 109 H, Calcium 8.1 L I & O for Last 24 hours: Intake & Output 01/18/23 01/19/23 01/20/23 01/21/23 23:59 23:59 23:59 23:59 Intake Total 1050 / 1050 1979 / 1979 240 / 240 Output Total 500 / 500 2050 / 3350 4200 / 4200 600 / 600 Balance -500 / -500 -1000 / -2300 -2220 / -2220 -360 / -360 Weight 56.109 kg 56.109 kg 56.518 kg 56.27 kg Constitutional Constitutional: no acute distress, average body habitus and cooperative *Routine HEENT Exam Head: Present normocephalic and atraumatic Eye: Present EOMI and PERRL ENT: Present mucous membranes moist and external ear normal *Routine Neck Exam Neck: Present supple and trachea midline; Absent lymphadenopathy *
[2023-01-21 15:04] LABS: Chloride 94 mmol/L (98-107); Potassium 4.4 mmoL/L (3.5-5.1); Sodium 131 mmol/L (136-145)
[2023-01-21 15:07] LABS: Blood Urea Nitrogen 5 mg/dl (7-17); Creatinine Clearance Estimated 41 mL/min (50-200); Estimated Glomerular Filt Rate 81 ml/min (>60); GFR (African American) 98 ML/MIN (>60)
[2023-01-21 15:08] LABS: Anion Gap 10.4 mEq/L (5-15); Carbon Dioxide 31 mmol/L (22.0-30.0); Glucose 130 mg/dl (74-100)
[2023-01-21 15:42] LABS: Magnesium 2.1 mg/dl (1.6-2.3)
== END 2023-01-21 15:35 | DRG 558 ==
LOC: ER 20:47 → 2ND 21:22
PROVIDERS: Emergency Medicine; Internal Medicine Adolescent Medicine; Nurse Practitioner Critical Care Medicine; Admitting Provider Family Medicine; Emergency Provider Emergency Medicine; Visit Provider Family Medicine
DX: M62.82 Rhabdomyolysis (principal); S32.010A Wedge compression fracture of first lumbar vertebra, initial encounter for closed fracture; S32.020A Wedge compression fracture of second lumbar vertebra, initial encounter for closed fracture; C34.90 Malignant neoplasm of unspecified part of unspecified bronchus or lung; E87.6 Hypokalemia; Z86.73 Personal history of transient ischemic attack (TIA), and cerebral infarction without residual deficits; I10 Essential (primary) hypertension; E78.5 Hyperlipidemia, unspecified; Z79.899 Other long term (current) drug therapy; G89.29 Other chronic pain; M54.9 Dorsalgia, unspecified; F41.9 Anxiety disorder, unspecified; G20.A1 Parkinson's disease without dyskinesia, without mention of fluctuations
CPT/HCPCS: 36415; 51702; 70450; 71045; 72125; 72128; 72131; 72170; 80048; 80053; 80305; 80329; 81001; 82550; 82803; 83735; 83880; 85007; 85025; 92610; 93005; 97110; 97163; 97164; 97165; 99285; J3475

== ENCOUNTER → 2023-02-26 06:35 | Outpatient (CLI) | payer MEDICARE, SELFPAY | PROVIDERS: PCP Internal Medicine Adolescent Medicine; Visit Provider Internal Medicine Adolescent Medicine | DX: N39.0 Urinary tract infection, site not specified (principal); B95.7 Other staphylococcus as the cause of diseases classified elsewhere; B96.89 Other specified bacterial agents as the cause of diseases classified elsewhere | CPT/HCPCS: 87086 ==

== ENCOUNTER 2023-07-06 14:07 | Emergency (ER) | payer MEDICARE, SELFPAY ==
[2023-07-06] VITALS (8 sets, daily range): BP systolic 112–139; BP diastolic 57–83; PULSE 63–72; RESP 16–22; TEMP 36.4–36.7; O2SAT 92–96; BMI 23.6
--- NOTE | 2023-07-06 14:07 | ECG_ITS ---
APPROVED REPORT Exam: Resting ECG HR:70 bpm ECG Measurements Heart Rate 70 AXES DE 173 P 70 QRSd 75 QRS -8 QT 373 T 30 QTc 393 Conclusion SINUS RHYTHM WITH SINUS ARRHYTHMIA NONSPECIFIC T-WAVE ABNORMALITY BORDERLINE ECG Electronically signed by : KAYA JUÁREZ, 07/06/2023 17:20:00
--- NOTE | 2023-07-06 14:09 | HMH.EDGENADL ---
Discharge Plan Disposition Patient Disposition: Home, Self-Care Condition: Good Prescriptions Prescriptions: New doxycycline hyclate 100 mg capsule 100 mg PO BID 7 Days Qty: 14 0RF No Action ascorbate calcium (vitamin C) 500 mg tablet 500 mg PO DAILY calcium carbonate [Calcium 600] 600 mg calcium (1,500 mg) tablet 600 mg PO DAILY Ocuvite Adult 50 Plus 250 mg (90 mg-160 mg) capsule 1 cap PO DAILY famotidine 20 mg tablet 20 mg PO DAILY carbidopa-levodopa 25-100 mg tablet 1 tab PO TID 30 Days Qty: 90 2RF sulfamethoxazole-trimethoprim 800-160 mg tablet 1 tab PO BID Qty: 20 0RF duloxetine 60 mg capsule, delayed rel sprinkle 60 mg PO DAILY 90 Days Qty: 90 0RF amlodipine 5 mg tablet 5 mg PO DAILY 90 Days Qty: 90 0RF bisoprolol fumarate 5 mg tablet 5 mg PO DAILY 90 Days Qty: 90 0RF clopidogrel 75 mg tablet 75 mg PO DAILY 90 Days Qty: 90 0RF simvastatin 40 mg tablet 40 mg PO HS Qty: 90 0RF docusate sodium 100 mg capsule 100 mg PO BID 30 Days Qty: 60 1RF alprazolam 1 mg tablet 0.5 mg PO QHS Qty: 15 0RF potassium chloride 20 mEq tablet extended release 20 meq PO DAILY 30 Days Qty: 30 1RF codeine-guaifenesin 10-100 mg/5 mL liquid 5 ml PO Q6H PRN (Reason: cough) Qty: 120 1RF cholecalciferol (vitamin D3) 10 MCG tablet 400 unit PO DAILY Referrals Follow up/Referrals: Donald Castellanos MD [Primary Care Provider] - See instructions Activity Restrictions/Add. Instructions Additional Instructions/Restrictions: You were evaluated in the ER. You are appropriate for discharge at this time. Take the prescribed antibiotics as directed. Drink a glass of water and sit up for 30 minutes after taking this medication. Make an appointment with your primary care physician for reevaluation in 2 to 3 days. Return to the ER with new, worsening, or otherwise concerning symptoms. Clinical Impressions Clinical Impression: Cough Qualifiers: Cough type: acute Qualified Code(s): R05.1 - Acute cough Discharge ED Provider: Wero Hess General Adult HPI <Wero Hess MD - Last Filed: 07/06/23 17:00> General Chief complaint: Chest Pain Stated complaint: chest pain Time Seen by Provider: 07/06/23 14:09 History of Present Illness HPI narrative: Patient presents for evaluation of generalized weakness, frequent cough, productive of sputum, gradual in onset worsening over the past 48 hours however ongoing for approximately 1 week. Denies any palpitations although does describe chest wall discomfort associated with coughing. Previous therapies include antitussive prescribed by PCP. No fevers or chills. No abdominal pain. Pain is moderate in severity nonpleuritic in nature nonradiating. No sick contacts. No recent travel. Denies any history of CAD, daughter at bedside reports history of lung cancer status post partial resection of lobe. No ongoing treatment. Please note that above description of symptoms, in this electronic medical record under categorization of recalled from ER triage doctor by RN are reflective of an initial nursing assessment, however, is not reflective of my full history and physical exam that was personally taken and clarified. Consequentially, this preceding description of symptoms, which may include the patient's categorized chief complaint in the EMR, do not reflect my personal clinical impression, and the ultimate description of history of present illness and patient stated complaints should be deferred to this section of the note. Unless stated otherwise or congruent with this section of the note, additional signs, symptoms, or incongruence should be interpreted as inaccurate with my clinical impression. Related Data Home Medications Medication Instructions Recorded Confirmed ascorbate calcium (vitamin C) 500 500 mg PO DAILY Supplement 11/14/17 05/28/23 mg tablet cholecalciferol (vitamin D3) 10 400 unit PO DAILY Supplement 04/18/21 05/28/23 mcg (400 unit) tablet calcium carbonate 600 mg calcium 600 mg PO DAILY SUPPLIMENT 05/15/22 05/28/23 (1,500 mg) tablet (Calcium) [id number] 250 mg-dha 90 1 cap PO DAILY Vitamin 10/29/22 05/28/23 mg-epa 160 [id number] capsule (Ocuvite Adult 50 Plus) famotidine 20 mg tablet 20 mg PO DAILY 05/28/23 05/28/23 Previous Rx's Medication Instructions Recorded carbidopa 25 mg-levodopa 100 mg 1 tab PO TID Parkinsonian syndrome 04/25/23 tablet 30 days #90 tabs sulfamethoxazole 800 1 tab PO BID #20 tabs 05/20/23 mg-trimethoprim 160 mg tablet duloxetine 60 mg capsule,delayed 60 mg PO DAILY 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 release sprinkle pain, mood disorder 90 days #90 caps amlodipine 5 mg tablet 5 mg PO DAILY High Blood Pressure 06/21/23 90 days #90 tabs bisoprolol fumarate 5 mg tablet 5 mg PO DAILY BLOOD PRESSURE 90 06/21/23 days #90 tabs clopidogrel 75 mg tablet 75 mg PO DAILY Blood thinner 90 06/21/23 days #90 tabs docusate sodium 100 mg capsule 100 mg PO BID constipation 30 days 06/21/23 #60 caps simvastatin 40 mg tablet 40 mg PO HS Cholesterol #90 tabs 06/21/23 alprazolam 1 mg tablet 0.5 mg (1/2 x 1 mg) PO QHS Anxiety 06/22/23 #15 tabs potassium chloride 20 mEq 20 meq PO DAILY 30 days #30 tabs 06/24/23 tablet,extended release codeine 10 mg-guaifenesin 100 mg/5 5 ml PO Q6H PRN cough #120 mL 07/04/23 mL oral liquid doxycycline hyclate 100 mg capsule 100 mg PO BID 7 days #14 caps 07/06/23 Allergies Allergy/AdvReac Type Severity Reaction Status Date / Time No Known Allergies Allergy Verified 05/28/23 13:49 [facility] <Wero Hess MD - Last Filed: 07/06/23 17:00> [facility] Disclaimer: The information contained in this section may have been updated after the patient was seen, as this information can be updated by other users. Medical History Anxiety Hyperlipidemia Hypertension Lung cancer Abnormal PET scan, left lung lower lobe nodule consistent with malignancy. Numbness and tingling Likely multifactorial etiology include and polyradiculopathy, spinal stenosis with claudication. Cannot exclude polyneuropathy, small fiber neuropathy in a patient with lung and breast cancer, (remote effects of cancer, paraneoplastic etiology, cannot exclude exposure to chemotherapy, records from [facility] will be requested). Parkinsonian syndrome Differential diagnosis: Vascular parkinsonism, Parkinson plus, (PSP) patient has frequent falls, Lewy body disease, parkinsonian features with memory loss. Surgical History H/O mastectomy History of cholecystectomy Family History Mother Cancer Father Stroke Social History Smoking Status: Never smoker smoking status stop date: 01/20/2022 second hand exposure: No alcohol intake: never substance use type: denies use current occupational status: retired Travel in the last 8 weeks: None household members: none housing: house current occupational exposures/hazards: No caffeine: Yes <Wero Hess MD - Last Filed: 07/06/23 17:00> ROS Obtained: Yes Systems reviewed as appropriate & no additional complaints except as documented As per HPI Physical Exam <Wero Hess MD - Last Filed: 07/06/23 17:00> General General appearance: alert and in no apparent distress Head Head exam: atraumatic and normocephalic Eye Eye exam: Present normal appearance Neck Neck exam: Present normal inspection Chest Chest inspection: Present normal inspection, symmetric chest wall rise and other (Bilateral rales, frequent nonproductive cough) Respiratory Respiratory exam: Present normal lung sounds bilaterally; Absent respiratory distress Cardiovascular Cardiovascular exam: Present regular rate and normal rhythm Abdominal Exam Abdominal exam: Present soft Neurological Exam Neurological exam: Present alert Psychiatric Psychiatric exam: Present normal affect and normal mood Skin Skin exam: Present warm and dry Medical Decision Making <Wero Hess MD - Last Filed: 07/06/23 17:00> Medical Records Medical records reviewed: Yes I reviewed the patient's medical records. Patrick Inquiry Pt receiving controlled substance: No Vital Signs: 07/06/23 14:07 07/06/23 15:00 07/06/23 15:30 Temperature 97.6 F Temperature Source Oral Pulse Rate 63 63 Pulse Rate [Left Radial] 72 Respiratory Rate 19 18 18 Blood Pressure 116/75 129/70 Blood Pressure [Right Arm] 131/83 Blood Pressure Mean 89 Blood Pressure Mean [Right Arm] 99 02 Sat by Pulse Oximetry 96 92 L 94 L Oxygen Delivery Method Room Air 07/06/23 16:00 07/06/23 17:00 07/06/23 17:31 Temperature Temperature Source Pulse Rate 64 65 67 Pulse Rate [Left Radial] Respiratory Rate 16 19 19 Blood Pressure 139/74 120/61 112/60 Blood Pressure [Right Arm] Blood Pressure Mean Blood Pressure Mean [Right Arm] 02 Sat by Pulse Oximetry 94 L 92 L 92 L Oxygen Delivery Method Room Air Room Air 07/06/23 18:00 Temperature Temperature Source Pulse Rate 71 Pulse Rate [Left Radial] Respiratory Rate 22 Blood Pressure 112/68 Blood Pressure [Right Arm] Blood Pressure Mean 82 Blood Pressure Mean [Right Arm] 02 Sat by Pulse Oximetry 94 L Oxygen Delivery Method Lab Data Lab Results 07/06/23 14:16: WBC 5.4, RBC 4.50, Hgb 14.7, Hct 44.5, MCV 99.0, MCH 32.6 H, MCHC 32.9, RDW 14.6, Plt Count 211, MPV 8.2, Neut % (Auto) 53.1, Lymph % (Auto) 38.2, Dillon % (Auto) 6.3, Eos % (Auto) 1.6, Baso % (Auto) 0.8, Neut # (Auto) 2.9, Lymph # (Auto) 2.1, Dillon # (Auto) 0.3, Eos # (Auto) 0.1, Baso # (Auto) 0.0, Sodium 131 L, Potassium 3.9, Chloride 98, Carbon Dioxide 29, Anion Gap 7.9, BUN 11, Creatinine 0.70, Estimated Creat Clear 41, Estimated GFR 81, Est GFR ( Amer) 98, Glucose 102 H, Calcium 9.0, Total Bilirubin 0.5, AST 43 H, ALT 27, Alkaline Phosphatase 101, Troponin I < 0.01, NT-Pro-B Natriuret Pep 235, Total Protein 6.4, Albumin 3.9, Globulin 2.5, Albumin/Globulin Ratio 1.6, Lipase 65 07/06/23 14:40: SARS-CoV-2 (PCR) Not detected, Influenza A Untype (PCR) Not detected, Influenza Type B (PCR) Not detected 07/06/23 17:22: Troponin I < 0.01 07/06/23 14:16 07/06/23 14:16 Orders (Tests/Meds): ED MEDICATIONS Generic Name Dose Route Start Last Admin Trade Name Freq PRN Reason Stop Dose Admin Nitroglycerin 0.4 mg 07/06/23 14:10 Nitroglycerin 0.4mg Sl Tablet SL 08/05/23 14:09 [id number] PRN Chest Pain Discontinued Medications Generic Name Dose Route Start Last Admin Trade Name Freq PRN Reason Stop Dose Admin Aspirin 325 mg 07/06/23 14:10 07/06/23 14:48 Aspirin 325mg Tablet PO 07/06/23 14:11 325 mg ONCE ONE Administration ORDERS Category Date Time Status XR chest 2V Stat Exams 07/06/23 14:10 Completed BNP [Brain Natriuretic Peptide] Stat Lab 07/06/23 14:16 Completed CBC w/Auto Diff [Complete Blood Count Auto Diff] Stat Lab 07/06/23 14:16 Completed CMP [Comprehensive Metabolic Panel] Stat Lab 07/06/23 14:16 Completed Lipase Stat Lab 07/06/23 14:16 Completed Rapid PCR Covid and Flu A/B Stat Lab 07/06/23 14:40 Completed Troponin I Q3H Lab 07/06/23 14:16 Completed Troponin I Q3H Lab 07/06/23 17:22 Completed Troponin I Q3H Lab 07/06/23 20:15 Ordered Troponin I Q3H Lab 07/06/23 23:15 Ordered HEART Score History (anamnesis): Slightly suspicious ECG: Non-specific disturbance Age: >65 years Risk factors: No known risk factors Troponin: </= normal limit HEART Score: 3 Medical Decision Narrative: Patient with history and exam per above presenting for evaluation of shortness of breath, chest wall discomfort Diagnoses considered include pneumonia, pleural effusion, noncardiogenic edema, pneumothorax, pneumonia, CHF exacerbation, ACS, anemia, ED workup and treatment included: Chest x-ray two-view, CBC, CMP, lipase, troponin x 2, BNP Labs were independently interpreted by me, significant for no leukocytosis, BNP within normal limits, initial troponin undetectable Imaging was independently visualized and interpreted by me, significant for concern for retrocardiac opacity. Please refer to radiology report for full details. Delta troponin is pending, care was transferred to incoming physician <Veronika Khalil MD - Last Filed: 07/06/23 18:38> Vital Signs: 07/06/23 14:07 07/06/23 15:00 07/06/23 15:30 Temperature 97.6 F Temperature Source Oral Pulse Rate 63 63 Pulse Rate [Left Radial] 72 Respiratory Rate 19 18 18 Blood Pressure 116/75 129/70 Blood Pressure [Right Arm] 131/83 Blood Pressure Mean 89 Blood Pressure Mean [Right Arm] 99 02 Sat by Pulse Oximetry 96 92 L 94 L Oxygen Delivery Method Room Air 07/06/23 16:00 07/06/23 17:00 07/06/23 17:31 Temperature Temperature Source Pulse Rate 64 65 67 Pulse Rate [Left Radial] Respiratory Rate 16 19 19 Blood Pressure 139/74 120/61 112/60 Blood Pressure [Right Arm] Blood Pressure Mean Blood Pressure Mean [Right Arm] 02 Sat by Pulse Oximetry 94 L 92 L 92 L Oxygen Delivery Method Room Air Room Air 07/06/23 18:00 Temperature Temperature Source Pulse Rate 71 Pulse Rate [Left Radial] Respiratory Rate 22 Blood Pressure 112/68 Blood Pressure [Right Arm] Blood Pressure Mean 82 Blood Pressure Mean [Right Arm] 02 Sat by Pulse Oximetry 94 L Oxygen Delivery Method Lab Data Lab Results 07/06/23 14:16: WBC 5.4, RBC 4.50, Hgb 14.7, Hct 44.5, MCV 99.0, MCH 32.6 H, MCHC 32.9, RDW 14.6, Plt Count 211, MPV 8.2, Neut % (Auto) 53.1, Lymph % (Auto) 38.2, Dillon % (Auto) 6.3, Eos % (Auto) 1.6, Baso % (Auto) 0.8, Neut # (Auto) 2.9, Lymph # (Auto) 2.1, Dillon # (Auto) 0.3, Eos # (Auto) 0.1, Baso # (Auto) 0.0, Sodium 131 L, Potassium 3.9, Chloride 98, Carbon Dioxide 29, Anion Gap 7.9, BUN 11, Creatinine 0.70, Estimated Creat Clear 41, Estimated GFR 81, Est GFR ( Amer) 98, Glucose 102 H, Calcium 9.0, Total Bilirubin 0.5, AST 43 H, ALT 27, Alkaline Phosphatase 101, Troponin I < 0.01, NT-Pro-B Natriuret Pep 235, Total Protein 6.4, Albumin 3.9, Globulin 2.5, Albumin/Globulin Ratio 1.6, Lipase 65 07/06/23 14:40: SARS-CoV-2 (PCR) Not detected, Influenza A Untype (PCR) Not detected, Influenza Type B (PCR) Not detected 07/06/23 17:22: Troponin I < 0.01 Orders (Tests/Meds): ED MEDICATIONS Generic Name Dose Route Start Last Admin Trade Name Freq PRN Reason Stop Dose Admin Nitroglycerin 0.4 mg 07/06/23 14:10 Nitroglycerin 0.4mg Sl Tablet SL 08/05/23 14:09 [id number] PRN Chest Pain Discontinued Medications Generic Name Dose Route Start Last Admin Trade Name Freq PRN Reason Stop Dose Admin Aspirin 325 mg 07/06/23 14:10 07/06/23 14:48 Aspirin 325mg Tablet PO 07/06/23 14:11 325 mg ONCE ONE Administration ORDERS Category Date Time Status XR chest 2V Stat Exams 07/06/23 14:10 Completed BNP [Brain Natriuretic Peptide] Stat Lab 07/06/23 14:16 Completed CBC w/Auto Diff [Complete Blood Count Auto Diff] Stat Lab 07/06/23 14:16 Completed CMP [Comprehensive Metabolic Panel] Stat Lab 07/06/23 14:16 Completed Lipase Stat Lab 07/06/23 14:16 Completed Rapid PCR Covid and Flu A/B Stat Lab 07/06/23 14:40 Completed Troponin I Q3H Lab 07/06/23 14:16 Completed Troponin I Q3H Lab 07/06/23 17:22 Completed Troponin I Q3H Lab 07/06/23 20:15 Ordered Troponin I Q3H Lab 07/06/23 23:15 Ordered HEART Score HEART Score: 3 Medical Decision Narrative: Patient with history and exam per above presenting for evaluation of shortness of breath, chest wall discomfort Diagnoses considered include pneumonia, pleural effusion, noncardiogenic edema, pneumothorax, pneumonia, CHF exacerbation, ACS, anemia, ED workup and treatment included: Chest x-ray two-view, CBC, CMP, lipase, troponin x 2, BNP Labs were independently interpreted by me, significant for no leukocytosis, BNP within normal limits, initial troponin undetectable Imaging was independently visualized and interpreted by me, significant for concern for retrocardiac opacity. Please refer to radiology report for full details. Delta troponin is pending, care was transferred to incoming physician Khalil: Upon my assumption of care patient was resting comfortably. She is stable. I have reviewed the workup performed by primary provider and agree with his assessment at this time. Second troponin pending. Repeat troponin also undetectably low at less than 0.01. Patient is appropriate for discharge. She continues having significant cough and though chest x-ray did not demonstrate obvious pneumonia, I do also appreciate possible retrocardiac opacity and with patient's ongoing symptoms believe it is most appropriate to treat her for developing pneumonia. Patient received doxycycline for outpatient treatment. Patient was given instructions on symptomatic management, follow up instructions, and return precautions for the emergency department. Patient indicated understanding and was discharged in stable condition. Critical Care <Wero Hess MD - Last Filed: 07/06/23 17:00> Critical Care Time Critical Care Time: No
--- NOTE | 2023-07-06 14:10 | XR_ITS ---
PROCEDURE INFORMATION: Exam: XR Chest Exam date and time: 07/06/2023 2:15 PM Age: 78 years old Clinical indication: Pain; Chest pressure; Additional info: Chest pain TECHNIQUE: Imaging protocol: Radiologic exam of the chest. Views: 2 views. COMPARISON: CR XR CHEST PORTABLE 01/20/2023 12:32 PM FINDINGS: Tubes, catheters and devices: There is an epidural catheter terminating at approximately T9 level. Lungs: No evidence of pneumonia or interstitial edema. Pleural spaces: Unremarkable. No pleural effusion. No pneumothorax. Heart/Mediastinum: Unremarkable. No cardiomegaly. Bones/joints: Unremarkable. IMPRESSION: No evidence of pneumonia or interstitial edema.
[2023-07-06 14:38] LABS: Basophils % 0.8 % (0.1-2.0); Eosinophils # 0.1 K/mm3 (0.0-0.4); Eosinophils % 1.6 % (0.1-12.0); Hematocrit 44.5 % (37.0-47.0); Hemoglobin 14.7 g/dL (12.2-16.2); Lymphocytes # 2.1 K/mm3 (0.7-4.5); Lymphocytes % 38.2 % (10-50); Mean Corpuscular HGB Conc 32.9 g/dL (31.8-35.4); Mean Corpuscular Hemoglobin 32.6 pg (27.0-31.2); Mean Platelet Volume 8.2 fl (7.4-10.4); Monocytes # 0.3 K/mm3 (0.1-1.0); Monocytes % 6.3 % (1.7-9.3); Neutrophils # 2.9 K/mm3 (1.8-7.8); Neutrophils % 53.1 % (37.0-80.0); Platelet Count 211 K/mm3 (142-424); Red Cell Distribution Width 14.6 % (11.5-17.5); White Blood Count 5.4 K/mm3 (4.8-10.8)
[2023-07-06 14:45] LABS: Coronavirus 19, PCR Not Detected (NotDetected); Influenza A, PCR Not Detected (NotDetected); Influenza B, PCR Not Detected (NotDetected)
[2023-07-06] MEDS: ASPIRIN 325MG TABLET 325 MG PO (14:48)
--- NOTE | 2023-07-06 14:48 | PC.NURSE ---
pt given pillow
[2023-07-06 14:56] LABS: Chloride 98 mmol/L (98-107); Potassium 3.9 mmoL/L (3.5-5.1); Sodium 131 mmol/L (136-145)
[2023-07-06 14:58] LABS: Alanine Aminotransferase 27 U/L (12-78); Aspartate Amino Transferase 43 U/L (14-36); Blood Urea Nitrogen 11 mg/dl (7-17); Creatinine Clearance Estimated 41 mL/min (50-200); Estimated Glomerular Filt Rate 81 ml/min (>60); GFR (African American) 98 ML/MIN (>60)
[2023-07-06 14:59] LABS: Albumin Level 3.9 g/dl (3.5-5.0); Albumin/Globulin Ratio 1.6 (1.1-1.8); Alkaline Phosphatase 101 U/L (38-126); Anion Gap 7.9 mEq/L (5-15); Bilirubin,Total 0.5 mg/dl (0.2-1.3); Carbon Dioxide 29 mmol/L (22.0-30.0); Globulin 2.5 g/dL (1.3-3.2); Glucose 102 mg/dl (74-100); Lipase 65 U/L (23-300); Total Protein,Serum 6.4 g/dl (6.3-8.2)
[2023-07-06 15:09] LABS: NT Pro Brain Natriuretic Pep. 235 pg/mL (0-450)
[2023-07-06 15:14] LABS: Troponin I < 0.01 ng/ml (0.00-0.034)
--- NOTE | 2023-07-06 15:55 | PC.NURSE ---
pt given meal tray
[2023-07-06 17:51] LABS: Troponin I < 0.01 ng/ml (0.00-0.034)
== END 2023-07-06 18:48 | disposition home or self-care (01) ==
PROVIDERS: Emergency Provider Emergency Medicine; PCP Family Medicine
DX: R07.89 Other chest pain (principal); R53.1 Weakness; R05.1 Acute cough; E78.5 Hyperlipidemia, unspecified; I10 Essential (primary) hypertension; Z85.118 Personal history of other malignant neoplasm of bronchus and lung; Z90.2 Acquired absence of lung [part of]; G20.C Parkinsonism, unspecified
CPT/HCPCS: 71046; 80053; 83690; 83880; 84484; 85025; 87636; 93005; 99285

== ENCOUNTER 2023-08-22 14:14 | Emergency (ER) | payer MEDICARE, SELFPAY ==
[2023-08-22] VITALS (19 sets, daily range): BP systolic 92–143; BP diastolic 51–84; PULSE 53–61; RESP 16–18; TEMP 36.6–37; O2SAT 94–98; BMI 20.7
--- NOTE | 2023-08-22 14:18 | ED_ITS ---
Discharge Plan Disposition Patient Disposition: Xfer Short-Term Hosp Condition: Serious Prescriptions Prescriptions: No Action ascorbate calcium (vitamin C) 500 mg tablet 500 mg PO DAILY calcium carbonate [Calcium 600] 600 mg calcium (1,500 mg) tablet 600 mg PO DAILY Ocuvite Adult 50 Plus 250 mg (90 mg-160 mg) capsule 1 cap PO DAILY alprazolam 0.5 mg tablet 0.5 mg PO HS Qty: 30 3RF carbidopa-levodopa 25-100 mg tablet 2 tab PO TID 30 Days Qty: 180 5RF duloxetine 60 mg capsule, delayed rel sprinkle 60 mg PO DAILY 90 Days Qty: 90 0RF amlodipine 5 mg tablet 5 mg PO DAILY 90 Days Qty: 90 0RF bisoprolol fumarate 5 mg tablet 5 mg PO DAILY 90 Days Qty: 90 0RF simvastatin 40 mg tablet 40 mg PO HS Qty: 90 0RF docusate sodium 100 mg capsule 100 mg PO BID 30 Days Qty: 60 1RF codeine-guaifenesin 10-100 mg/5 mL liquid 5 ml PO Q6H PRN (Reason: cough) Qty: 120 1RF clopidogrel 75 mg tablet 75 mg PO DAILY 90 Days Qty: 90 0RF famotidine 20 mg tablet 20 mg PO DAILY 30 Days Qty: 30 2RF potassium chloride 20 mEq tablet extended release 20 meq PO DAILY 30 Days Qty: 30 2RF doxycycline hyclate 100 mg capsule 100 mg PO BID 7 Days Qty: 14 0RF cholecalciferol (vitamin D3) 10 MCG tablet 400 unit PO DAILY Referrals Follow up/Referrals: Donald Castellanos MD [Primary Care Provider] - See instructions Clinical Impressions Clinical Impression: Acute nontraumatic kidney injury, Urinary tract bacterial infections, Colitis, Septic shock Stand Alone Forms Stand Alone Forms: Transfer Record - ED Discharge ED Provider: Woodrow Garcia General Adult HPI <JAME Lobo - Last Filed: 08/22/23 17:16> General Chief complaint: Weakness Stated complaint: low BP, lathargic, confusion, sent by Emanuel Time Seen by Provider: 08/22/23 14:18 History of Present Illness HPI narrative: Patient presents for evaluation of low blood pressure. Patient reports that she has had diarrhea all night . Patient's friend found her half and half out of the bed very lethargic. Patient herself denies any trauma and reports that her back is hurting her which is a chronic problem. Patient was brought to her PCP who noted that her blood pressure was very low and she was sent on to the emergency department for evaluation. On arrival patient is very weak and lethargic but answers questions appropriately and Glascow coma score is 15 currently. She denies chest pain fever chills hemoptysis hematochezia melena hematemesis hematuria dysuria. Related Data Home Medications Medication Instructions Recorded Confirmed ascorbate calcium (vitamin C) 500 500 mg PO DAILY Supplement 11/14/17 07/30/23 mg tablet cholecalciferol (vitamin D3) 10 400 unit PO DAILY Supplement 04/18/21 07/30/23 mcg (400 unit) tablet calcium carbonate (Calcium 600) 600 mg PO DAILY SUPPLIMENT 05/15/22 07/30/23 unyccbow-kmi- 250 mg-dha 90 1 cap PO DAILY Vitamin 10/29/22 07/30/23 mg-epa 160 lt-ipul-vrbo-zeax capsule (Ocuvite Adult 50 Plus) Previous Rx's Medication Instructions Recorded duloxetine 60 mg capsule,delayed 60 mg PO DAILY 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 release sprinkle pain, mood disorder 90 days #90 caps amlodipine 5 mg tablet 5 mg PO DAILY High Blood Pressure 06/21/23 90 days #90 tabs bisoprolol fumarate 5 mg tablet 5 mg PO DAILY BLOOD PRESSURE 90 06/21/23 days #90 tabs docusate sodium 100 mg capsule 100 mg PO BID constipation 30 days 06/21/23 #60 caps simvastatin 40 mg tablet 40 mg PO HS Cholesterol #90 tabs 06/21/23 codeine 10 mg-guaifenesin 100 mg/5 5 ml PO Q6H PRN cough #120 mL 07/04/23 mL oral liquid doxycycline hyclate 100 mg capsule 100 mg PO BID 7 days #14 caps 07/06/23 alprazolam 0.5 mg tablet 0.5 mg PO HS sleep #30 tabs 07/09/23 clopidogrel 75 mg tablet 75 mg PO DAILY Blood thinner 90 07/17/23 days #90 tabs carbidopa 25 mg-levodopa 100 mg 2 tab PO TID Parkinsonian syndrome 07/30/23 tablet 30 days #180 tabs famotidine 20 mg tablet 20 mg PO DAILY 30 days #30 tabs 08/21/23 potassium chloride 20 mEq 20 meq PO DAILY 30 days #30 tabs 08/21/23 tablet,extended release Allergies Allergy/AdvReac Type Severity Reaction Status Date / Time No Known Allergies Allergy Verified 07/30/23 14:49 [facility] <JAME Lobo - Last Filed: 08/22/23 17:16> [facility] Disclaimer: The information contained in this section may have been updated after the patient was seen, as this information can be updated by other users. Medical History Parkinsonian syndrome Differential diagnosis: Vascular parkinsonism, Parkinson plus, (PSP) patient has frequent falls, Lewy body disease, parkinsonian features with memory loss. Numbness and tingling Likely multifactorial etiology include and polyradiculopathy, spinal stenosis with claudication. Cannot exclude polyneuropathy, small fiber neuropathy in a patient with lung and breast cancer, (remote effects of cancer, paraneoplastic etiology, cannot exclude exposure to chemotherapy, records from [facility] will be requested). Anxiety Hyperlipidemia Hypertension Lung cancer Abnormal PET scan, left lung lower lobe nodule consistent with malignancy. Surgical History History of cholecystectomy H/O mastectomy Family History Mother Cancer Father Stroke Social History Smoking Status: Never smoker smoking status stop date: 01/20/2022 second hand exposure: No alcohol intake: never substance use type: denies use current occupational status: retired Travel in the last 8 weeks: None household members: none housing: house current occupational exposures/hazards: No caffeine: Yes <JAME Lobo - Last Filed: 08/22/23 17:16> ROS Obtained: Yes Systems reviewed as appropriate & no additional complaints except as documented Physical Exam <JAME Lobo - Last Filed: 08/22/23 17:16> General General appearance: in no apparent distress and lethargic Head Head exam: atraumatic and normal inspection Eye Eye exam: Present normal appearance, PERRL and EOMI ENT ENT exam: Present normal exam, normal oropharynx and mucous membranes moist Neck Neck exam: Present normal inspection and full ROM; Absent tenderness or lymphadenopathy Chest Chest inspection: Present normal inspection and symmetric chest wall rise; Absent tenderness Respiratory Respiratory exam: Present normal lung sounds bilaterally; Absent respiratory distress, wheezes, stridor or accessory muscle use Cardiovascular Cardiovascular exam: Present regular rate, normal rhythm, normal heart sounds, +S1 and +S2 Abdominal Exam Abdominal exam: Present soft and normal bowel sounds; Absent tenderness, guarding, rebound or rigidity Rectal Exam Rectal exam: Present normal inspection, normal rectal tone and heme (-) stool; Absent hemorrhoids, mass or tenderness comment: No evidence of blood in the rectal vault after digital rectal exam. No pain on digital rectal exam. Extremities Exam Extremities exam: Present normal inspection and full ROM; Absent tenderness (To palpation) Back Exam Back exam: Present normal inspection, full ROM, CVA tenderness (R) and CVA tenderness (L); Absent tenderness (To palpation) Neurological Exam Neurological exam: Present oriented X3 and CN II-XII intact; Absent alert (Patient is lethargic but arousable and oriented to person place and circumstance) Psychiatric Psychiatric exam: Present normal affect and normal mood Skin Skin exam: Present dry, intact and normal color; Absent warm (Cool) Medical Decision Making <JAME Lobo - Last Filed: 08/22/23 17:16> Medical Records Medical records reviewed: Yes I reviewed the patient's medical records. Patrick Inquiry Pt receiving controlled substance: No Vital Signs: 08/22/23 14:15 08/22/23 14:38 08/22/23 14:40 Temperature 98.6 F Temperature Source Rectal Pulse Rate 57 L 53 L Pulse Rate [Left] 58 L Respiratory Rate 16 Blood Pressure 92/58 L 95/56 L Blood Pressure [Left Arm] 94/51 L Blood Pressure Mean 69 71 Blood Pressure Mean [Left Arm] 65 02 Sat by Pulse Oximetry 95 94 L 95 Oxygen Delivery Method Room Air Room Air Room Air 08/22/23 15:00 08/22/23 15:30 08/22/23 15:58 Temperature Temperature Source Pulse Rate 55 L 61 61 Pulse Rate [Left] Respiratory Rate Blood Pressure 101/56 L 112/56 L 120/57 L Blood Pressure [Left Arm] Blood Pressure Mean Blood Pressure Mean [Left Arm] 02 Sat by Pulse Oximetry 95 95 95 Oxygen Delivery Method Room Air Room Air Room Air 08/22/23 16:21 Temperature Temperature Source Pulse Rate 57 L Pulse Rate [Left] Respiratory Rate Blood Pressure 127/63 Blood Pressure [Left Arm] Blood Pressure Mean Blood Pressure Mean [Left Arm] 02 Sat by Pulse Oximetry 97 Oxygen Delivery Method Room Air Lab Data Lab results reviewed: Yes I reviewed the patient's lab results. Lab Results 08/22/23 14:37: WBC 12.4 H, RBC 4.44, Hgb 14.3, Hct 43.3, MCV 97.6, MCH 32.2 H, MCHC 33.0, RDW 15.2, Plt Count 258, MPV 8.0, Neut % (Auto) 88.4 H, Lymph % (Auto) 7.7 L, [place] % (Auto) 2.9, Eos % (Auto) 0.8, Baso % (Auto) 0.3, Neut # (Auto) 11.0 H, Lymph # (Auto) 1.0, [place] # (Auto) 0.4, Eos # (Auto) 0.1, Baso # (Auto) 0.0, Total Counted 100, Neutrophils % (Manual) 86 H, Lymphocytes % (Manual) 12, Monocytes % (Manual) 2, Platelet Estimate Normal, RBC Morphology Normal, Sodium 131 L, Potassium 4.9, Chloride 99, Carbon Dioxide 24, Anion Gap 12.9, BUN 18 H, Creatinine 1.60 H, Estimated Creat Clear 22, Estimated GFR 31 L, Est GFR ( Amer) 38 L, Glucose 127 H, Lactate 1.8, Calcium 9.9, Magnesium 2.2, Total Bilirubin 1.0, AST 53 H, ALT 17, Alkaline Phosphatase 84, Total Protein 6.4, Albumin 4.0, Globulin 2.4, Albumin/Globulin Ratio 1.7, P rocalcitonin 7.76 H 08/22/23 15:50: Urine Color Yellow, Urine Appearance Sl cloudy, Urine pH 6.0, Ur Specific [place] 1.015, Urine Protein Negative, Urine Glucose (UA) Negative, Urine Ketones Trace, Urine Blood Negative, Urine Nitrate Negative, Urine Bilirubin 1+ A, Urine Urobilinogen 0.2, Ur Leukocyte Esterase 3+ A, Urine RBC None, Urine WBC 5-10, Ur Squamous Epith Cells 3-5, Urine Bacteria Trace, Hyaline Casts Occasional 08/22/23 14:37 08/22/23 14:37 Orders (Tests/Meds): ED MEDICATIONS Generic Name Dose Route Start Last Admin Trade Name Peter PRN Reason Stop Dose Admin Acetaminophen 650 mg 08/22/23 16:50 Acetaminophen 325mg Tab PO 09/21/23 16:49 Q4HP PRN Fever or Mild Pain (1-3) Heparin Sodium (Porcine) 5,000 unit 08/22/23 17:00 Heparin Sodium 5,000 Unit/Ml Vial SQ 09/21/23 16:59 Q8H XIOMY Ceftriaxone Sodium 1 gm/ 50 mls @ 100 mls/hr 08/22/23 15:45 08/22/23 15:58 Sodium Chloride IV 09/01/23 15:44 100 mls/hr Q24H XIOMY Administration Sodium Chloride 1,000 mls @ 125 mls/hr 08/22/23 17:00 Sod Chlor 0.9% 1000ml Bag IV 09/21/23 16:59 .Q8H XIOMY Morphine Sulfate 1 mg 08/22/23 16:50 Morphine 2mg/Ml Syringe IV 09/21/23 16:49 Q4HP PRN Severe Pain (7-10) Ondansetron HCl 4 mg 08/22/23 16:50 Ondansetron 4mg/2ml Vial IV 09/21/23 16:49 Q8HP PRN Nausea Sodium Chloride 10 ml 08/22/23 16:50 Sodium Chloride 0.9% 10ml Flush Syringe IV 09/21/23 16:49 NEEDED PRN Maintain IV Site Discontinued Medications Generic Name Dose Route Start Last Admin Trade Name Peter PRN Reason Stop Dose Admin Acetaminophen 1,000 mg 08/22/23 14:19 08/22/23 14:50 Acetaminophen 1,000mg/100ml Vial IV 08/22/23 14:20 1,000 mg ONCE ONE Administration Lactated Ringer's 1,000 mls @ 999 mls/hr 08/22/23 14:19 08/22/23 14:50 Lactated Ringer's 1000 Ml Bag IV 08/22/23 15:19 999 mls/hr .Q1H1M ONE Administration Iopamidol 100 ml 08/22/23 15:18 08/22/23 15:20 Iopamidol-370 (76%);100ml Bottle IV 08/22/23 15:19 100 ml ONCE ONE Administration Sodium Chloride 40 ml 08/22/23 15:18 08/22/23 15:20 0.9 % Sodium Chloride 50 Ml Vial IV 08/22/23 15:19 40 ml ONCE ONE Administration Sodium Chloride 10 ml 08/22/23 15:18 08/22/23 15:20 Sodium Chloride 0.9% 10ml Syr (Rad Only) IV 08/22/23 15:19 10 ml ONCE ONE Administration ORDERS Category Date Time Status CT angio abdomen pelvis Stat Cat Scan 08/22/23 14:39 Completed Consult to Cardiology [CONS] Routine Cons 08/22/23 16:53 Active Consult to General Surgery [CONS] Routine Cons 08/22/23 16:55 Ordered Basic Metabolic Panel AMLAB Lab 08/23/23 06:00 Ordered Basic Metabolic Panel AMLAB Lab 08/24/23 06:00 Ordered Basic Metabolic Panel AMLAB Lab 08/25/23 06:00 Ordered CBC w/Auto Diff [Complete Blood Count Auto Diff] Stat Lab 08/22/23 14:37 Completed CMP [Comprehensive Metabolic Panel] Stat Lab 08/22/23 14:37 Completed Complete Blood Count Auto Diff AMLAB Lab 08/23/23 06:00 Ordered Complete Blood Count Auto Diff AMLAB Lab 08/24/23 06:00 Ordered Complete Blood Count Auto Diff AMLAB Lab 08/25/23 06:00 Ordered Diarrhea 6-11 Panel, Cdiff PCR Stat Lab 08/22/23 15:44 Ordered Lactic Acid Stat Lab 08/22/23 14:37 Completed Magnesium Stat Lab 08/22/23 14:37 Completed Occult Blood,Stool Stat Lab 08/22/23 17:05 Ordered Procalcitonin Stat Lab 08/22/23 14:37 Completed UA [Urinalysis and Microscopic] Stat Lab 08/22/23 15:50 Completed Blood Culture Stat Micro 08/22/23 14:39 Received Urine Culture Stat Micro 08/22/23 15:50 Received Medical Decision Narrative: In summary patient is a 78-year-old female who presents to the emergency department for evaluation of low blood pressure and lethargy. Patient is hypotensive but with a heart rate of satting at on room air upon arrival, afebrile. Physical exam shows a very weak and lethargic but arousable and oriented with a GCS of 15. No focal findings on physical exam including normal breath sounds normal heart rate no palpable abdominal pain no deformities throughout the axial skeleton all 4 extremities are intact grossly to exam with full range of motion. Patient has no focal neurologic deficits. Differential diagnosis includes undifferentiated shock, infection, AAA kidney stone pyelonephritis gastroenteritis etc. Initial workup will be conducted with hematologic labs urinalysis CTA abdomen pelvis. Initial interventions include crystalloid bolus, acetaminophen. Initial workup reviewed by me shows an elevated white count with a left shift, procalcitonin of 7, acute nontraumatic kidney injury, my informal interpretation of her CT scan abdomen pelvis shows dilated small bowel no free air and thickening of the descending colon. While mesenteric distribution could be considered given the stenosis seen of the vasculature patient has no clinical signs of mesenteric ischemia including cramping abdominal pain her abdominal exam is benign she has no blood in the rectal vault on digital rectal exam. Upon repeat evaluation patient is now normotensive after fluid bolus however she still remains bradycardic likely due to beta-blockade. Given this and interactive discussion with hospital medicine regarding findings and she will be admitted for further evaluation and care. Unfortunately hospital medicine called back and requested that we transfer the patient given the radiology read of mesenteric stenosis and the possibility of mesenteric ischemia in the radiology differential. At that point we had an interactive discussion with the [facility] and patient was graciously accepted by Dr. Moncada. <Woodrow Garcia MD - Last Filed: 08/22/23 17:53> Vital Signs: 08/22/23 14:15 08/22/23 14:38 08/22/23 14:40 Temperature 98.6 F Temperature Source Rectal Pulse Rate 57 L 53 L Pulse Rate [Left] 58 L Respiratory Rate 16 Blood Pressure 92/58 L 95/56 L Blood Pressure [Left Arm] 94/51 L Blood Pressure Mean 69 71 Blood Pressure Mean [Left Arm] 65 02 Sat by Pulse Oximetry 95 94 L 95 Oxygen Delivery Method Room Air Room Air Room Air 08/22/23 15:00 08/22/23 15:30 08/22/23 15:58 Temperature Temperature Source Pulse Rate 55 L 61 61 Pulse Rate [Left] Respiratory Rate Blood Pressure 101/56 L 112/56 L 120/57 L Blood Pressure [Left Arm] Blood Pressure Mean Blood Pressure Mean [Left Arm] 02 Sat by Pulse Oximetry 95 95 95 Oxygen Delivery Method Room Air Room Air Room Air 08/22/23 16:21 Temperature Temperature Source Pulse Rate 57 L Pulse Rate [Left] Respiratory Rate Blood Pressure 127/63 Blood Pressure [Left Arm] Blood Pressure Mean Blood Pressure Mean [Left Arm] 02 Sat by Pulse Oximetry 97 Oxygen Delivery Method Room Air Lab Data Lab Results 08/22/23 14:37: WBC 12.4 H, RBC 4.44, Hgb 14.3, Hct 43.3, MCV 97.6, MCH 32.2 H, MCHC 33.0, RDW 15.2, Plt Count 258, MPV 8.0, Neut % (Auto) 88.4 H, Lymph % (Auto) 7.7 L, [place] % (Auto) 2.9, Eos % (Auto) 0.8, Baso % (Auto) 0.3, Neut # (Auto) 11.0 H, Lymph # (Auto) 1.0, [place] # (Auto) 0.4, Eos # (Auto) 0.1, Baso # (Auto) 0.0, Total Counted 100, Neutrophils % (Manual) 86 H, Lymphocytes % (Manual) 12, Monocytes % (Manual) 2, Platelet Estimate Normal, RBC Morphology Normal, Sodium 131 L, Potassium 4.9, Chloride 99, Carbon Dioxide 24, Anion Gap 12.9, BUN 18 H, Creatinine 1.60 H, Estimated Creat Clear 22, Estimated GFR 31 L, Est GFR ( Amer) 38 L, Glucose 127 H, Lactate 1.8, Calcium 9.9, Magnesium 2.2, Total Bilirubin 1.0, AST 53 H, ALT 17, Alkaline Phosphatase 84, Total Protein 6.4, Albumin 4.0, Globulin 2.4, Albumin/Globulin Ratio 1.7, P rocalcitonin 7.76 H 08/22/23 15:50: Urine Color Yellow, Urine Appearance Sl cloudy, Urine pH 6.0, Ur Specific [place] 1.015, Urine Protein Negative, Urine Glucose (UA) Negative, Urine Ketones Trace, Urine Blood Negative, Urine Nitrate Negative, Urine Bilirubin 1+ A, Urine Urobilinogen 0.2, Ur Leukocyte Esterase 3+ A, Urine RBC None, Urine WBC 5-10, Ur Squamous Epith Cells 3-5, Urine Bacteria Trace, Hyaline Casts Occasional Orders (Tests/Meds): ED MEDICATIONS Generic Name Dose Route Start Last Admin Trade Name Freq PRN Reason Stop Dose Admin Acetaminophen 650 mg 08/22/23 16:50 Acetaminophen 325mg Tab PO 09/21/23 16:49 Q4HP PRN Fever or Mild Pain (1-3) Heparin Sodium (Porcine) 5,000 unit 08/22/23 17:00 Heparin Sodium 5,000 Unit/Ml Vial SQ 09/21/23 16:59 Q8H XIOMY Ceftriaxone Sodium 1 gm/ 50 mls @ 100 mls/hr 08/22/23 15:45 08/22/23 15:58 Sodium Chloride IV 09/01/23 15:44 100 mls/hr Q24H XIOMY Administration Sodium Chloride 1,000 mls @ 125 mls/hr 08/22/23 17:00 Sod Chlor 0.9% 1000ml Bag IV 09/21/23 16:59 .Q8H XIOMY Morphine Sulfate 1 mg 08/22/23 16:50 Morphine 2mg/Ml Syringe IV 09/21/23 16:49 Q4HP PRN Severe Pain (7-10) Ondansetron HCl 4 mg 08/22/23 16:50 Ondansetron 4mg/2ml Vial IV 09/21/23 16:49 Q8HP PRN Nausea Sodium Chloride 10 ml 08/22/23 16:50 Sodium Chloride 0.9% 10ml Flush Syringe IV 09/21/23 16:49 NEEDED PRN Maintain IV Site Discontinued Medications Generic Name Dose Route Start Last Admin Trade Name Freq PRN Reason Stop Dose Admin Acetaminophen 1,000 mg 08/22/23 14:19 08/22/23 14:50 Acetaminophen 1,000mg/100ml Vial IV 08/22/23 14:20 1,000 mg ONCE ONE Administration Lactated Ringer's 1,000 mls @ 999 mls/hr 08/22/23 14:19 08/22/23 14:50 Lactated Ringer's 1000 Ml Bag IV 08/22/23 15:19 999 mls/hr .Q1H1M ONE Administration Iopamidol 100 ml 08/22/23 15:18 08/22/23 15:20 Iopamidol-370 (76%);100ml Bottle IV 08/22/23 15:19 100 ml ONCE ONE Administration Sodium Chloride 40 ml 08/22/23 15:18 08/22/23 15:20 0.9 % Sodium Chloride 50 Ml Vial IV 08/22/23 15:19 40 ml ONCE ONE Administration Sodium Chloride 10 ml 08/22/23 15:18 08/22/23 15:20 Sodium Chloride 0.9% 10ml Syr (Rad Only) IV 08/22/23 15:19 10 ml ONCE ONE Administration ORDERS Category Date Time Status CT angio abdomen pelvis Stat Cat Scan 08/22/23 14:39 Completed Consult to Cardiology [CONS] Routine Cons 08/22/23 16:53 Active Consult to General Surgery [CONS] Routine Cons 08/22/23 16:55 Ordered Basic Metabolic Panel AMLAB Lab 08/23/23 06:00 Ordered Basic Metabolic Panel AMLAB Lab 08/24/23 06:00 Ordered Basic Metabolic Panel AMLAB Lab 08/25/23 06:00 Ordered CBC w/Auto Diff [Complete Blood Count Auto Diff] Stat Lab 08/22/23 14:37 Completed CMP [Comprehensive Metabolic Panel] Stat Lab 08/22/23 14:37 Completed Complete Blood Count Auto Diff AMLAB Lab 08/23/23 06:00 Ordered Complete Blood Count Auto Diff AMLAB Lab 08/24/23 06:00 Ordered Complete Blood Count Auto Diff AMLAB Lab 08/25/23 06:00 Ordered Diarrhea 6-11 Panel, Cdiff PCR Stat Lab 08/22/23 15:44 Ordered Lactic Acid Stat Lab 08/22/23 14:37 Completed Magnesium Stat Lab 08/22/23 14:37 Completed Occult Blood,Stool Stat Lab 08/22/23 17:05 Ordered Procalcitonin Stat Lab 08/22/23 14:37 Completed UA [Urinalysis and Microscopic] Stat Lab 08/22/23 15:50 Completed Blood Culture Stat Micro 08/22/23 14:39 Received Urine Culture Stat Micro 08/22/23 15:50 Received Medical Decision Narrative: In summary patient is a 78-year-old female who presents to the emergency department for evaluation of low blood pressure and lethargy. Patient is hypotensive but with a heart rate of satting at on room air upon arrival, afebrile. Physical exam shows a very weak and lethargic but arousable and oriented with a GCS of 15. No focal findings on physical exam including normal breath sounds normal heart rate no palpable abdominal pain no deformities throughout the axial skeleton all 4 extremities are intact grossly to exam with full range of motion. Patient has no focal neurologic deficits. Differential diagnosis includes undifferentiated shock, infection, AAA kidney stone pyelonephritis gastroenteritis etc. Initial workup will be conducted with hematologic labs urinalysis CTA abdomen pelvis. Initial interventions include crystalloid bolus, acetaminophen. Initial workup reviewed by me shows an elevated white count with a left shift, procalcitonin of 7, acute nontraumatic kidney injury, my informal interpretation of her CT scan abdomen pelvis shows dilated small bowel no free air and thickening of the descending colon. While mesenteric distribution could be considered given the stenosis seen of the vasculature patient has no clinical signs of mesenteric ischemia including cramping abdominal pain her abdominal exam is benign she has no blood in the rectal vault on digital rectal exam. Upon repeat evaluation patient is now normotensive after fluid bolus however she still remains bradycardic likely due to beta-blockade. Given this and interactive discussion with hospital medicine regarding findings and she will be admitted for further evaluation and care. hospital medicine called back and felt uncomfortable given radiology read, requested that we transfer the patient given the radiology read of mesenteric stenosis and the possibility of mesenteric ischemia in the radiology differential. At that point we had an interactive discussion with the [facility] and patient was graciously accepted by Dr. Moncada. I was consulted by the MONSERRAT, and we discussed the complexity of the problems being addressed. I approved the treatment and management plan for this patient?s care in the Emergency Department, thus performing a substantive portion of the medical decision making. Woodrow Garcia MD Critical Care <JAME Lobo - Last Filed: 08/22/23 17:16> Critical Care Time Critical Care Time: Yes Attestation: On 08/22/23, the high probability of a clinically significant, sudden or life threatening deterioration of the following system(cardiovascular due to septic shock) required my full and direct attention, intervention and personal management. The time I documented below is in addition to time spent performing reported procedures but includes the following listed in this critical care notation. Total Time Total Critical Care Time: 45
--- NOTE | 2023-08-22 14:33 | PC.NURSE ---
PT WAS GIVEN A WARM BLANKET AND PILLOW WITH CASE,FRONT OFFICE SPEC FROM HOME AT BS AND CALL LIGHT IN REACH
--- NOTE | 2023-08-22 14:39 | CT_ITS ---
FINAL REPORT TECHNIQUE: Pre-and postcontrast images of the abdomen through the pelvis were performed by computed tomography. Extensive 3-D reconstruction images were performed. A CTA was performed. This study was performed with techniques to keep radiation doses as low as reasonably achievable (ALARA). Individualized dose reduction techniques using automated exposure control or adjustment of mA and/or kV according to the patient's size were employed. CLINICAL HISTORY: Undifferentiated shock, hypotension, ams, abdominal pain with concern for ischemic colitis COMPARISON: None FINDINGS: ABDOMEN: The solid organs are unremarkable. Status post cholecystectomy. No evidence of bowel obstruction. PELVIS: There is abnormal wall thickening of the descending colon extending into the sigmoid colon which may be infectious or ischemic colitis. The uterus is unremarkable. There is no evidence of free fluid. CTA: There is moderate diffuse calcified plaque disease of the aorta. There is no evidence of dissection or aneurysm. There is mild bilateral renal artery stenosis. There is mild celiac artery stenosis measuring up to 40%. There is moderate SMA stenosis up to 50%. There is high-grade BRIGIDO stenosis of 70%. The iliac vessels show diffuse plaque disease without measurable stenosis. 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 Long segment wall thickening of the descending foot of colon could be infectious colitis or ischemic colitis. No evidence of abdominal aortic aneurysm or dissection. Reviewed, Interpreted and Dictated by Melany Bergeron MD Transcribed by Maxine Swift Authenticated and [facility]
[2023-08-22] MEDS: LACTATED RINGERS 1000ML 1,000 ML 999 ML IV (14:50)
[2023-08-22] MEDS: ACETAMINOPHEN 1,000MG/100ML VIAL 1000 MG IV (14:50)
[2023-08-22 14:51] LABS: Basophils % 0.3 % (0.1-2.0); Eosinophils # 0.1 K/mm3 (0.0-0.4); Eosinophils % 0.8 % (0.1-12.0); Hematocrit 43.3 % (37.0-47.0); Hemoglobin 14.3 g/dL (12.2-16.2); Lymphocytes % 7.7 % (10-50); Mean Corpuscular Hemoglobin 32.2 pg (27.0-31.2); Mean Corpuscular Volume 97.6 fl (81-99); Monocytes # 0.4 K/mm3 (0.1-1.0); Monocytes % 2.9 % (1.7-9.3); Neutrophils % 88.4 % (37.0-80.0); Platelet Count 258 K/mm3 (142-424); Red Blood Count 4.44 M/mm3 (4.20-5.40); Red Cell Distribution Width 15.2 % (11.5-17.5); White Blood Count 12.4 K/mm3 (4.8-10.8)
[2023-08-22 14:52] LABS: Chloride 99 mmol/L (98-107); Sodium 131 mmol/L (136-145)
[2023-08-22 14:53] LABS: Potassium 4.9 mmoL/L (3.5-5.1)
[2023-08-22 14:55] LABS: Alanine Aminotransferase 17 U/L (12-78); Albumin/Globulin Ratio 1.7 (1.1-1.8); Alkaline Phosphatase 84 U/L (38-126); Anion Gap 12.9 mEq/L (5-15); Aspartate Amino Transferase 53 U/L (14-36); Blood Urea Nitrogen 18 mg/dl (7-17); Calcium 9.9 mg/dl (8.4-10.2); Carbon Dioxide 24 mmol/L (22.0-30.0); Creatinine Clearance Estimated 22 mL/min (50-200); Estimated Glomerular Filt Rate 31 ml/min (>60); GFR (African American) 38 ML/MIN (>60); Globulin 2.4 g/dL (1.3-3.2); Glucose 127 mg/dl (74-100); Magnesium 2.2 mg/dl (1.6-2.3); Total Protein,Serum 6.4 g/dl (6.3-8.2)
[2023-08-22 14:56] LABS: Lactic Acid 1.8 mmol/L (0.7-2.1)
--- NOTE | 2023-08-22 15:07 | PC.NURSE ---
pt is going to ct scan via stretcher
[2023-08-22 15:08] LABS: MANUAL DIFFERENTIAL MANUAL DIFFERENTIAL (MANUAL DIFF)
[2023-08-22] MEDS: 0.9 % SODIUM CHLORIDE 50 ML VIAL 40 ML IV (15:20)
[2023-08-22] MEDS: SODIUM CHLORIDE 0.9% 10ML SYR (RAD ONLY) 10 ML IV (15:20)
[2023-08-22] MEDS: IOPAMIDOL-370 (76%);100ML BOTTLE 100 ML IV (15:20)
[2023-08-22 15:21] LABS: Procalcitonin 7.76 ng/mL (0.0-2.0)
[2023-08-22 15:54] LABS: Microscopic, Urine URINE MICROSCOPIC (MICROSCOPIC)
[2023-08-22 15:55] LABS: Appearance,Urine SL CLOUDY (Clear); Blood, Urine Negative (Negative); Color,Urine YELLOW (Yellow); Glucose,Urine (UA) Negative (Negative); Ketones,Urine TRACE (Negative); Leukocyte Esterase,Urine 3+ (Negative); Nitrate,Urine Negative (Negative); Protein,Urine Negative (Negative); Specific Gravity, Urine 1.015 (1.005-1.030); Urobilinogen,Urine 0.2 EU/dl (0.2)
[2023-08-22 15:57] LABS: Bilirubin,Urine 1+ (Negative)
[2023-08-22 15:58] LABS: Bacteria,Urine Trace /lpf; Hyaline Casts,Urine Occasional #/lpf (0)
[2023-08-22] MEDS: CEFTRIAXONE SODIUM 1 GM in 0.9 % SODIUM CHLORIDE 50 ML IV (15:58)
[2023-08-22 16:34] LABS: Lymphocytes % 12 % (10-50); Monocytes % 2 % (2-9); Neutrophils % 86 % (42-76); Total Cells Counted 100
[2023-08-22 16:35] LABS: Platelet Estimate Normal; RBC Morphology Normal
--- NOTE | 2023-08-22 16:54 | PC.NURSE ---
report called to [facility]
--- NOTE | 2023-08-22 17:03 | PC.NURSE ---
CALLED [facility] FOR POSSIBLE TRANSFER
--- NOTE | 2023-08-22 17:04 | PC.NURSE ---
CALL RAD TO POWER SHARE IMAGES TO [facility] AND BURN A DISC
--- NOTE | 2023-08-22 17:07 | PC.NURSE ---
circus train supervisor called to states Dr Fisher says not to let this patient come up because he is not going to admit her know . Let house know, we are aware he is now refusing to admit pt after he agreed to admit.
--- NOTE | 2023-08-22 18:15 | PC.NURSE ---
report called to [facility] ED. awaiting transport
[2023-08-22 18:44] LABS: Occult Blood,Stool Negative (Negative)
--- NOTE | 2023-08-22 18:54 | PC.NURSE ---
pt is more alert @ this time. sitting up in bed eating a sandwich. family @ bedside
--- NOTE | 2023-08-26 08:56 | PC.NURSE ---
reviewed urine culture with MD; no action needed
== END 2023-08-22 22:53 | disposition short-term general hospital (02) ==
LOC: ER 16:44 → 2ND 17:16 → ER 17:55
PROVIDERS: Physician Assistant; Emergency Provider Emergency Medicine; PCP Family Medicine
DX: A41.89 Other specified sepsis (principal); R65.21 Severe sepsis with septic shock; B96.89 Other specified bacterial agents as the cause of diseases classified elsewhere; N39.0 Urinary tract infection, site not specified; K52.9 Noninfective gastroenteritis and colitis, unspecified; E87.1 Hypo-osmolality and hyponatremia; N17.9 Acute kidney failure, unspecified; K55.9 Vascular disorder of intestine, unspecified
CPT/HCPCS: 74174; 80053; 81001; 82272; 83605; 83735; 84145; 85007; 85025; 87040; 87086; 96365; 96366; 96375; 99291; G0328; J0131; J0696; Q9967

== ENCOUNTER 2023-09-08 01:50 | Emergency (ER) | payer MEDICARE, SELFPAY ==
--- NOTE | 2023-09-08 01:49 | CT_ITS ---
PROCEDURE INFORMATION: Exam: CT Thoracic Spine Without Contrast Exam date and time: 09/08/2023 2:12 AM Age: 78 years old Clinical indication: Injury or trauma; Fall; Other: Pain; Additional info: Fall, pain TECHNIQUE: Imaging protocol: Computed tomography of the thoracic spine without contrast. Radiation optimization: All CT scans at this facility use at least one of these dose optimization techniques: automated exposure control; mA and/or kV adjustment per patient size (includes targeted exams where dose is matched to clinical indication); or iterative reconstruction. COMPARISON: CT THORACIC SPINE WO CON 18/01/2023 15:12 FINDINGS: Bones/joints: No acute fracture. Normal alignment. No significant disc bulge or herniation. No severe spinal canal stenosis. No significant neural foraminal narrowing. Soft tissues: Unremarkable. Other findings: Please see separate report for CT chest. IMPRESSION: No acute fracture or malalignment of the thoracic spine.
--- NOTE | 2023-09-08 01:49 | CT_ITS ---
PROCEDURE INFORMATION: Exam: CT Chest Without Contrast; Diagnostic Exam date and time: 09/08/2023 2:14 AM Age: 78 years old Clinical indication: Injury or trauma; Fall; Other: Pain; Additional info: Fall, thoracic back pain TECHNIQUE: Imaging protocol: Diagnostic computed tomography of the chest without contrast. Radiation optimization: All CT scans at this facility use at least one of these dose optimization techniques: automated exposure control; mA and/or kV adjustment per patient size (includes targeted exams where dose is matched to clinical indication); or iterative reconstruction. COMPARISON: CT CHEST WO CON 05/12/2021 10:48 FINDINGS: Tubes, catheters and devices: Thoracic spinal device is noted. Lungs: Mild scarring and atelectasis in the lower lungs. Moderate centrilobular emphysema. Pleural spaces: Trace left pleural effusion. Heart: Unremarkable. No cardiomegaly. No pericardial effusion. Coronary arteries: Severe coronary arterial calcification, indicating the presence of coronary artery disease. Lymph nodes: Unremarkable. No enlarged lymph nodes. Vasculature: The aorta demonstrates severe atherosclerotic disease. Bones/joints: Old left rib fractures. No acute fracture. Soft tissues: Bilateral breast prostheses. Other findings: Please see separate report for abdomen/pelvis. Stigmata of old granulomatous disease. IMPRESSION: 1. Trace left pleural effusion. Otherwise, no acute intrathoracic findings. 2. Severe coronary arterial calcification, indicating the presence of coronary artery disease. If the patient has associated symptoms, recommend management as per chest pain guidelines. If the patient is asymptomatic, consider reviewing modifiable cardiovascular risk factors and managing as per guidelines for primary prevention.
--- NOTE | 2023-09-08 01:49 | CT_ITS ---
PROCEDURE INFORMATION: Exam: CT Cervical Spine Without Contrast Exam date and time: 09/08/2023 2:10 AM Age: 78 years old Clinical indication: Neck pain; Additional info: Fall TECHNIQUE: Imaging protocol: Computed tomography of the cervical spine without contrast. Radiation optimization: All CT scans at this facility use at least one of these dose optimization techniques: automated exposure control; mA and/or kV adjustment per patient size (includes targeted exams where dose is matched to clinical indication); or iterative reconstruction. COMPARISON: CT CERVICAL SPINE WO CON 18/01/2023 15:09 FINDINGS: Bones: Straightening of the curvature of the cervical spine is likely positional. Peub-iq-juzydbaq left neural foraminal stenosis from C3-C7. Moderate right neural foraminal stenosis at C5-C6. Multilevel degenerative changes of the cervical spine producing multiple levels of mild spinal canal stenosis. This is most pronounced at C5-C6 and C6-C7 where there is moderate spinal stenosis. Lungs: Bilateral apical scarring. Soft tissues: Unremarkable. IMPRESSION: No acute fracture or malalignment of the cervical spine.
--- NOTE | 2023-09-08 01:49 | CT_ITS ---
PROCEDURE INFORMATION: Exam: CT Head Without Contrast Exam date and time: 09/08/2023 2:01 AM Age: 78 years old Clinical indication: Injury or trauma; Fall; Other: AMS; Additional info: Fall, AMS TECHNIQUE: Imaging protocol: Computed tomography of the head without contrast. Radiation optimization: All CT scans at this facility use at least one of these dose optimization techniques: automated exposure control; mA and/or kV adjustment per patient size (includes targeted exams where dose is matched to clinical indication); or iterative reconstruction. COMPARISON: CT HEAD/BRAIN WO CON 18/01/2023 15:06 FINDINGS: Brain: Chronic bilateral basal ganglia lacunar infarctions. Chronic bilateral cerebellar hemisphere infarctions. Moderate chronic brain volume loss and advanced chronic small vessel ischemic changes. Cerebral ventricles: No ventriculomegaly. Paranasal sinuses: Visualized sinuses are unremarkable. No fluid levels. Mastoid air cells: Visualized mastoid air cells are well aerated. Orbital cavities: Status post bilateral cataract surgery. Bones: Unremarkable. No acute fracture. Soft tissues: Unremarkable. IMPRESSION: No acute intracranial findings.
--- NOTE | 2023-09-08 01:49 | CT_ITS ---
PROCEDURE INFORMATION: Exam: CT Abdomen And Pelvis Without Contrast Exam date and time: 09/08/2023 2:19 AM Age: 78 years old Clinical indication: Injury or trauma; Fall; Blunt; Generalized; Additional info: Fall, low back pain TECHNIQUE: Imaging protocol: Computed tomography of the abdomen and pelvis without contrast. Radiation optimization: All CT scans at this facility use at least one of these dose optimization techniques: automated exposure control; mA and/or kV adjustment per patient size (includes targeted exams where dose is matched to clinical indication); or iterative reconstruction. COMPARISON: CT ANGIO ABDOMEN PELVIS 05/27/2023 15:13 FINDINGS: Liver: Normal. No mass. Gallbladder and bile ducts: Gallbladder is absent. Pancreas: Ceiw-uz-nydduvff pancreatic atrophy. Spleen: Normal. No splenomegaly. Adrenal glands: Normal. No mass. Kidneys and ureters: Normal. No hydronephrosis. Stomach and bowel: Duodenal diverticula. Appendix: No evidence of appendicitis. Intraperitoneal space: Unremarkable. No free air. No significant fluid collection. Vasculature: The arteries demonstrate severe atherosclerotic disease. Lymph nodes: Unremarkable. No enlarged lymph nodes. Urinary bladder: Unremarkable as visualized. Reproductive: Unremarkable as visualized. Bones/joints: Unremarkable. No acute fracture. Soft tissues: Tiny fat containing umbilical hernia. Other findings: Please see separate report for CT chest. Stigmata of old granulomatous disease. IMPRESSION: No acute intra-abdominal or intrapelvic organ injury.
--- NOTE | 2023-09-08 01:49 | CT_ITS ---
PROCEDURE INFORMATION: Exam: CT Lumbar Spine Without Contrast Exam date and time: 09/08/2023 2:17 AM Age: 78 years old Clinical indication: Injury or trauma; Fall; Other: Pain; Additional info: Fall, htn/vomiting/arellano TECHNIQUE: Imaging protocol: Computed tomography of the lumbar spine without contrast. Radiation optimization: All CT scans at this facility use at least one of these dose optimization techniques: automated exposure control; mA and/or kV adjustment per patient size (includes targeted exams where dose is matched to clinical indication); or iterative reconstruction. COMPARISON: CT LUMBAR SPINE WO CON 18/01/2023 15:16 FINDINGS: Tubes, catheters and devices: Thoracic spinal device is noted. Bones/joints: L1 and L2 superior endplate fractures are chronic. Multilevel degenerative changes of the lumbar spine producing multiple levels of mild spinal canal stenosis. Soft tissues: Unremarkable. Other findings: Please see separate report for abdomen/pelvis. IMPRESSION: No acute fracture or malalignment of the lumbar spine.
--- NOTE | 2023-09-08 01:53 | ED_ITS ---
Discharge Plan Disposition Patient Disposition: Home, Self-Care Chief Complaint: Fall Prescriptions Prescriptions: No Action ascorbate calcium (vitamin C) 500 mg tablet 500 mg PO DAILY calcium carbonate [Calcium 600] 600 mg calcium (1,500 mg) tablet 600 mg PO DAILY Ocuvite Adult 50 Plus 250 mg (90 mg-160 mg) capsule 1 cap PO DAILY alprazolam 0.5 mg tablet 0.5 mg PO HS Qty: 30 3RF ondansetron 4 mg tablet,disintegrating 4 mg PO BID PRN (Reason: nausea and vomiting) 5 Days Qty: 10 2RF nitrofurantoin monohyd/m-cryst [Macrobid] 100 mg capsule 100 mg PO Q12H Qty: 20 0RF Rx Instructions: must administer with a meal/food carbidopa-levodopa 25-100 mg tablet 2 tab PO TID 30 Days Qty: 180 5RF duloxetine 60 mg capsule, delayed rel sprinkle 60 mg PO DAILY 90 Days Qty: 90 0RF amlodipine 5 mg tablet 5 mg PO DAILY 90 Days Qty: 90 0RF bisoprolol fumarate 5 mg tablet 5 mg PO DAILY 90 Days Qty: 90 0RF simvastatin 40 mg tablet 40 mg PO HS Qty: 90 0RF docusate sodium 100 mg capsule 100 mg PO BID 30 Days Qty: 60 1RF codeine-guaifenesin 10-100 mg/5 mL liquid 5 ml PO Q6H PRN (Reason: cough) Qty: 120 1RF clopidogrel 75 mg tablet 75 mg PO DAILY 90 Days Qty: 90 0RF famotidine 20 mg tablet 20 mg PO DAILY 30 Days Qty: 30 2RF potassium chloride 20 mEq tablet extended release 20 meq PO DAILY 30 Days Qty: 30 2RF zolpidem [Ambien] 10 mg tablet 10 mg PO HS Qty: 10 0RF cholecalciferol (vitamin D3) 10 MCG tablet 400 unit PO DAILY Referrals Follow up/Referrals: Donald Castellanos MD [Primary Care Provider] - See instructions Activity Restrictions/Add. Instructions Additional Instructions/Restrictions: Please follow-up with your primary care provider. Please return to the emergency department if you develop any new or worsening symptoms or become concerned for your health. Clinical Impressions Clinical Impression: Confusion, Fall Discharge ED Provider: Glen Perla Adult [facility] General Chief complaint: Fall Stated complaint: fall Time Seen by Provider: 09/08/23 01:53 History of Present Illness HPI narrative: 78-year-old female with history of prior stroke, Parkinson's, breast cancer presents after fall at home. She lives alone, usually ambulates with a walker. She is on benzodiazepines and there is concern that there may have been changes in this medication recently. She was somewhat confused this evening and fell. She is not sure when exactly. She does not report hitting her head or losing consciousness though she is not sure. Does have a skin tear on her left elbow but reports it is not painful. She denies any headache neck pain chest pain abdominal pain. She reports mid and low back pain. She reports that she believes she has gotten a tetanus shot recently. Related Data Home Medications Medication Instructions Recorded Confirmed ascorbate calcium (vitamin C) 500 500 mg PO DAILY Supplement 11/14/17 07/30/23 mg tablet cholecalciferol (vitamin D3) 10 400 unit PO DAILY Supplement 04/18/21 07/30/23 mcg (400 unit) tablet calcium carbonate (Calcium 600) 600 mg PO DAILY SUPPLIMENT 05/15/22 07/30/23 [id number] 250 mg-dha 90 1 cap PO DAILY Vitamin 10/29/22 07/30/23 mg-epa 160 sd-pedg-bppo-zeax capsule (Ocuvite Adult 50 Plus) Previous Rx's Medication Instructions Recorded duloxetine 60 mg capsule,delayed 60 mg PO DAILY 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 release sprinkle pain, mood disorder 90 days #90 caps amlodipine 5 mg tablet 5 mg PO DAILY High Blood Pressure 06/21/23 90 days #90 tabs bisoprolol fumarate 5 mg tablet 5 mg PO DAILY BLOOD PRESSURE 90 06/21/23 days #90 tabs docusate sodium 100 mg capsule 100 mg PO BID constipation 30 days 06/21/23 #60 caps simvastatin 40 mg tablet 40 mg PO HS Cholesterol #90 tabs 06/21/23 codeine 10 mg-guaifenesin 100 mg/5 5 ml PO Q6H PRN cough #120 mL 07/04/23 mL oral liquid alprazolam 0.5 mg tablet 0.5 mg PO HS sleep #30 tabs 07/09/23 clopidogrel 75 mg tablet 75 mg PO DAILY Blood thinner 90 07/17/23 days #90 tabs carbidopa 25 mg-levodopa 100 mg 2 tab PO TID Parkinsonian syndrome 04/09/24 tablet 30 days #180 tabs famotidine 20 mg tablet 20 mg PO DAILY 30 days #30 tabs 08/21/23 potassium chloride 20 mEq 20 meq PO DAILY 30 days #30 tabs 08/21/23 tablet,extended release nitrofurantoin 100 mg PO Q12H #20 caps 09/03/23 monohydrate/macrocrystals 100 mg capsule (Macrobid) ondansetron 4 mg disintegrating 4 mg PO BID PRN nausea and 09/03/23 tablet vomiting 5 days #10 tabs zolpidem 10 mg tablet (Ambien) 10 mg PO HS sleep #10 tabs 09/06/23 Allergies Allergy/AdvReac Type Severity Reaction Status Date / Time No Known Allergies Allergy Verified 09/03/23 11:07 [facility] Disclaimer: The information contained in this section may have been updated after the patient was seen, as this information can be updated by other users. Medical History Parkinsonian syndrome Differential diagnosis: Vascular parkinsonism, Parkinson plus, (PSP) patient has frequent falls, Lewy body disease, parkinsonian features with memory loss. Numbness and tingling Likely multifactorial etiology include and polyradiculopathy, spinal stenosis with claudication. Cannot exclude polyneuropathy, small fiber neuropathy in a patient with lung and breast cancer, (remote effects of cancer, paraneoplastic etiology, cannot exclude exposure to chemotherapy, records from [facility] will be requested). Anxiety Hyperlipidemia Hypertension Lung cancer Abnormal PET scan, left lung lower lobe nodule consistent with malignancy. Surgical History History of cholecystectomy H/O mastectomy Family History Mother Cancer Father Stroke Social History Smoking Status: Unknown if ever smoked smoking status stop date: 01/20/2022 second hand exposure: No alcohol intake: never substance use type: denies use current occupational status: retired Travel in the last 8 weeks: None household members: none housing: house current occupational exposures/hazards: No caffeine: Yes ROS Obtained: Yes All systems reviewed & no additional complaints except as documented Physical Exam General General appearance: alert and in no apparent distress Head Head exam: atraumatic and normocephalic Eye Eye exam: Present normal appearance, PERRL and EOMI ENT ENT exam: Present normal oropharynx and normal external ear exam Neck Neck exam: Present normal inspection and full ROM Chest Chest inspection: Present normal inspection and symmetric chest wall rise; Absent tenderness Respiratory Respiratory exam: Present normal lung sounds bilaterally; Absent respiratory distress Cardiovascular Cardiovascular exam: Present normal rhythm and bradycardia Abdominal Exam Abdominal exam: Present soft; Absent distention, tenderness or guarding Extremities Exam Extremities exam: Present other (Skin tear over left elbow without focal bony tenderness. No tenderness palpation of the bilateral upper and lower extremities.); Absent edema or joint swelling Back Exam Back exam: Present normal inspection and tenderness (Midline T and L-spine tenderness) Neurological Exam Neurological exam: Present alert and oriented X3; Absent motor sensory deficit Psychiatric Psychiatric exam: Present normal affect and normal mood Skin Skin exam: Present warm, dry and normal color Lymphatic Lymphatic Findings: no adenopathy Medical Decision Making Medical Records Medical records reviewed: Yes I reviewed the patient's medical records. Patrick Inquiry Pt receiving controlled substance: No Patrick was queried for this patient: No Vital Signs: 09/08/23 01:55 Temperature 97.9 F Temperature Source Oral Pulse Rate [Right Brachial] 67 Respiratory Rate 16 Blood Pressure [Right Arm] 154/79 H Blood Pressure Mean [Right Arm] 104 Blood Pressure Source [Right Arm] Automatic Cuff Blood Pressure Position [Right Arm] Sitting 02 Sat by Pulse Oximetry 98 Oxygen Delivery Method Room Air Lab Data Lab results reviewed: Yes I reviewed the patient's lab results. Lab Results 09/08/23 02:00: WBC 7.3, RBC 4.45, Hgb 14.3, Hct 43.7, MCV 98.2, MCH 32.1 H, MCHC 32.7, RDW 15.2, Plt Count 295, MPV 8.1, Neut % (Auto) 80.2 H, Lymph % (Auto) 13.2, [place] % (Auto) 5.2, Eos % (Auto) 0.6, Baso % (Auto) 0.7, Neut # (Auto) 5.9, Lymph # (Auto) 1.0, [place] # (Auto) 0.4, Eos # (Auto) 0.0, Baso # (Auto) 0.1, Sodium 130 L, Potassium 4.4, Chloride 97 L, Carbon Dioxide 27, Anion Gap 10.4, BUN 16, Creatinine 0.90, Estimated Creat Clear 39, Estimated GFR 60, Est GFR ( Amer) 73, Glucose 116 H, Calcium 10.0, Total Bilirubin 0.8, AST 35, ALT 10 L, Alkaline Phosphatase 85, Total Protein 7.3, Albumin 4.5, Globulin 2.8, Albumin/Globulin Ratio 1.6 09/08/23 03:00: Urine Color Yellow, Urine Appearance Clear, Urine pH 6.0, Ur Specific [place] 1.020, Urine Protein Negative, Urine Glucose (UA) Negative, Urine Ketones 1+, Urine Blood Negative, Urine Nitrate Negative, Urine Bilirubin Negative, Urine Urobilinogen 0.2, Ur Leukocyte Esterase Negative 09/08/23 02:00 09/08/23 02:00 Orders (Tests/Meds): ORDERS Category Date Time Status CT abdomen pelvis wo con Stat Cat Scan 09/08/23 01:[address] cervical spine wo con Stat Cat Scan 09/08/23 01:[address] chest wo con Stat Cat Scan 09/08/23 01:[address] head/brain wo con Stat Cat Scan 09/08/23 01:[address] lumbar spine wo con Stat Cat Scan 09/08/23 01:[address] thoracic spine wo con Stat Cat Scan 09/08/23 01:49 Completed CBC w/Auto Diff [Complete Blood Count Auto Diff] Stat Lab 09/08/23 02:00 Completed CMP [Comprehensive Metabolic Panel] Stat Lab 09/08/23 02:00 Completed UA [Urinalysis and Microscopic] Stat Lab 09/08/23 03:00 Results Medical Decision Narrative: 78-year-old female with history as documented above presents with confusion earlier tonight as well as fall from standing. Per EMS there is concern that she may have restarted or taken an extra benzodiazepine that she is prescribed. History was obtained interactive discussion with patient, EMS. On arrival, patient is [afebrile, hemodynamically stable, satting appropriately, alert, oriented x4, GCS 15], moving all extremities spontaneously. Full physical exam performed and significant for skin tear to the left elbow, mild tenderness to the thoracic and lumbar spine. Differential includes but is not limited to intracranial trauma intrathoracic trauma intra-abdominal trauma spine trauma extremity trauma medication side effect. Workup initiated including CBC CMP UA Noncon CT scans including head and spines chest abdomen pelvis. On re-evaluation, patient [remains afebrile, HD stable.] Laboratory workup independently interpreted by me and significant for stable hyponatremia, mild, no significant leukocytosis. Urine without evidence of infection. . Imaging independently interpreted by me and significant for no intracranial bleeding, no spinal fracture, no evidence of intrathoracic or intra-abdominal trauma. See radiology read for full review of final results. EKG independently interpreted by me and significant for sinus bradycardia with rate 56, no concerning ST changes, no evidence of arrhythmia. Given patient history, exam and workup, patient's presentation most likely represents mild confusion related to reinitiation of benzodiazepines with associated fall from standing without serious injury. Interactive discussion was had with patient and patient's family regarding her presentation. She was discharged in stable condition. Procedures Risk/Benefits of Procedure(s) Were Explained: Yes Critical Care Critical Care Time Critical Care Time: No
--- NOTE | 2023-09-08 01:53 | ECG_ITS ---
APPROVED REPORT Exam: Resting ECG HR:56 bpm ECG Measurements Heart Rate 56 AXES IA 191 P 70 QRSd 82 QRS 1 QT 428 T 56 QTc 420 Conclusion SINUS BRADYCARDIA BORDERLINE ECG Electronically signed by : PATEL SENA, 09/08/2023 16:16:39
[2023-09-08 01:55] VITALS: BP 154/79; PULSE 67; RESP 16; TEMP 36.6; O2SAT 98; BMI 22.6
[2023-09-08 02:12] LABS: Chloride 97 mmol/L (98-107); Potassium 4.4 mmoL/L (3.5-5.1); Sodium 130 mmol/L (136-145)
[2023-09-08 02:15] LABS: Alanine Aminotransferase 10 U/L (12-78); Albumin Level 4.5 g/dl (3.5-5.0); Albumin/Globulin Ratio 1.6 (1.1-1.8); Alkaline Phosphatase 85 U/L (38-126); Anion Gap 10.4 mEq/L (5-15); Aspartate Amino Transferase 35 U/L (14-36); Basophils # 0.1 K/mm3 (0-0.2); Basophils % 0.7 % (0.1-2.0); Bilirubin,Total 0.8 mg/dl (0.2-1.3); Blood Urea Nitrogen 16 mg/dl (7-17); Carbon Dioxide 27 mmol/L (22.0-30.0); Creatinine Clearance Estimated 39 mL/min (50-200); Eosinophils % 0.6 % (0.1-12.0); Estimated Glomerular Filt Rate 60 ml/min (>60); GFR (African American) 73 ML/MIN (>60); Globulin 2.8 g/dL (1.3-3.2); Glucose 116 mg/dl (74-100); Hematocrit 43.7 % (37.0-47.0); Hemoglobin 14.3 g/dL (12.2-16.2); Lymphocytes % 13.2 % (10-50); Mean Corpuscular HGB Conc 32.7 g/dL (31.8-35.4); Mean Corpuscular Hemoglobin 32.1 pg (27.0-31.2); Mean Corpuscular Volume 98.2 fl (81-99); Mean Platelet Volume 8.1 fl (7.4-10.4); Monocytes # 0.4 K/mm3 (0.1-1.0); Monocytes % 5.2 % (1.7-9.3); Neutrophils # 5.9 K/mm3 (1.8-7.8); Neutrophils % 80.2 % (37.0-80.0); Platelet Count 295 K/mm3 (142-424); Red Blood Count 4.45 M/mm3 (4.20-5.40); Red Cell Distribution Width 15.2 % (11.5-17.5); Total Protein,Serum 7.3 g/dl (6.3-8.2); White Blood Count 7.3 K/mm3 (4.8-10.8)
[2023-09-08 03:09] LABS: Microscopic, Urine URINE MICROSCOPIC (MICROSCOPIC)
[2023-09-08 03:11] LABS: Appearance,Urine CLEAR (Clear); Bilirubin,Urine Negative (Negative); Blood, Urine Negative (Negative); Color,Urine YELLOW (Yellow); Glucose,Urine (UA) Negative (Negative); Ketones,Urine 1+ (Negative); Leukocyte Esterase,Urine Negative (Negative); Nitrate,Urine Negative (Negative); Protein,Urine Negative (Negative); Urobilinogen,Urine 0.2 EU/dl (0.2)
[2023-09-08 03:23] LABS: Bacteria,Urine 1+ /lpf; Mucus,Urine 1+ /lpf; Squamous Epithelial Cell,Urine 20-50 #/hpf (0-5)
[2023-09-08 03:27] VITALS: BP 174/82; PULSE 60; RESP 17; TEMP 36.7; O2SAT 99
== END 2023-09-08 03:38 | disposition home or self-care (01) ==
PROVIDERS: Emergency Provider Emergency Medicine; PCP Family Medicine
DX: R41.0 Disorientation, unspecified (principal); E87.1 Hypo-osmolality and hyponatremia; R00.1 Bradycardia, unspecified; I10 Essential (primary) hypertension; E78.5 Hyperlipidemia, unspecified; Z86.73 Personal history of transient ischemic attack (TIA), and cerebral infarction without residual deficits; W19.XXXA Unspecified fall, initial encounter
CPT/HCPCS: 70450; 71250; 72125; 72128; 72131; 74176; 80053; 81001; 85025; 93005; 99285

== ENCOUNTER 2023-09-25 12:41 | Emergency (ER) | payer MEDICARE, SELFPAY ==
[2023-09-25 12:42] VITALS: BP 130/72; PULSE 58; RESP 14; TEMP 36.6; O2SAT 97; BMI 20.2
--- NOTE | 2023-09-25 13:01 | PC.NURSE ---
er at bedside
[2023-09-25] MEDS: LACTATED RINGERS 1000ML 1,000 ML 999 ML IV (13:10)
[2023-09-25 13:19] LABS: Chloride 93 mmol/L (98-107); Potassium 4.3 mmoL/L (3.5-5.1); Sodium 126 mmol/L (136-145)
[2023-09-25 13:22] LABS: Alanine Aminotransferase 11 U/L (12-78); Albumin Level 4.2 g/dl (3.5-5.0); Albumin/Globulin Ratio 1.6 (1.1-1.8); Alkaline Phosphatase 67 U/L (38-126); Anion Gap 12.3 mEq/L (5-15); Aspartate Amino Transferase 30 U/L (14-36); Bilirubin,Total 0.7 mg/dl (0.2-1.3); Blood Urea Nitrogen 15 mg/dl (7-17); Calcium 9.7 mg/dl (8.4-10.2); Carbon Dioxide 25 mmol/L (22.0-30.0); Creatinine Clearance Estimated 35 mL/min (50-200); Estimated Glomerular Filt Rate 69 ml/min (>60); GFR (African American) 84 ML/MIN (>60); Globulin 2.6 g/dL (1.3-3.2); Glucose 105 mg/dl (74-100); Lipase 106 U/L (23-300); Total Protein,Serum 6.8 g/dl (6.3-8.2)
[2023-09-25 13:23] LABS: Basophils # 0.1 K/mm3 (0-0.2); Basophils % 1.1 % (0.1-2.0); Eosinophils # 0.1 K/mm3 (0.0-0.4); Eosinophils % 2.1 % (0.1-12.0); Hematocrit 39.6 % (37.0-47.0); Hemoglobin 13.2 g/dL (12.2-16.2); Lymphocytes # 1.3 K/mm3 (0.7-4.5); Lymphocytes % 23.9 % (10-50); Mean Corpuscular HGB Conc 33.4 g/dL (31.8-35.4); Mean Corpuscular Hemoglobin 31.9 pg (27.0-31.2); Mean Corpuscular Volume 95.4 fl (81-99); Mean Platelet Volume 7.9 fl (7.4-10.4); Monocytes # 0.4 K/mm3 (0.1-1.0); Monocytes % 6.2 % (1.7-9.3); Neutrophils # 3.7 K/mm3 (1.8-7.8); Neutrophils % 66.8 % (37.0-80.0); Platelet Count 367 K/mm3 (142-424); Red Blood Count 4.15 M/mm3 (4.20-5.40); White Blood Count 5.6 K/mm3 (4.8-10.8)
--- NOTE | 2023-09-25 13:31 | HMH.EDGENADL ---
Discharge Plan Disposition Patient Disposition: Home, Self-Care Condition: Good Prescriptions Prescriptions: No Action ascorbate calcium (vitamin C) 500 mg tablet 500 mg PO DAILY calcium carbonate [Calcium 600] 600 mg calcium (1,500 mg) tablet 600 mg PO DAILY Ocuvite Adult 50 Plus 250 mg (90 mg-160 mg) capsule 1 cap PO DAILY alprazolam 0.5 mg tablet 0.5 mg PO HS Qty: 30 3RF ondansetron 4 mg tablet,disintegrating 4 mg PO BID PRN (Reason: nausea and vomiting) 5 Days Qty: 10 2RF nitrofurantoin monohyd/m-cryst [Macrobid] 100 mg capsule 100 mg PO Q12H Qty: 20 0RF Rx Instructions: must administer with a meal/food carbidopa-levodopa 25-100 mg tablet 2 tab PO TID 30 Days Qty: 180 5RF duloxetine 60 mg capsule, delayed rel sprinkle 60 mg PO DAILY 90 Days Qty: 90 0RF amlodipine 5 mg tablet 5 mg PO DAILY 90 Days Qty: 90 0RF bisoprolol fumarate 5 mg tablet 5 mg PO DAILY 90 Days Qty: 90 0RF simvastatin 40 mg tablet 40 mg PO HS Qty: 90 0RF docusate sodium 100 mg capsule 100 mg PO BID 30 Days Qty: 60 1RF codeine-guaifenesin 10-100 mg/5 mL liquid 5 ml PO Q6H PRN (Reason: cough) Qty: 120 1RF clopidogrel 75 mg tablet 75 mg PO DAILY 90 Days Qty: 90 0RF famotidine 20 mg tablet 20 mg PO DAILY 30 Days Qty: 30 2RF potassium chloride 20 mEq tablet extended release 20 meq PO DAILY 30 Days Qty: 30 2RF zolpidem [Ambien] 10 mg tablet 10 mg PO HS Qty: 10 0RF cholecalciferol (vitamin D3) 10 MCG tablet 400 unit PO DAILY Referrals Follow up/Referrals: Donald Castellanos MD [Primary Care Provider] - See instructions Activity Restrictions/Add. Instructions Additional Instructions/Restrictions: Call your family doctor to establish care for this visit to the emergency department and schedule follow-up within 48 hours to ensure improvement. If you have any worsening of your condition or any other concerning signs or symptoms, return to the emergency department or your primary care doctor for further evaluation. Talk to family doctor about cardiac medications that can lower blood pressure and heart rate cause confusion and weakness. Clinical Impressions Clinical Impression: Low BP, Acute confusion Discharge ED Provider: Woodrow Garcia General Adult HPI General Chief complaint: PAIN Stated complaint: low bp, back pain Time Seen by Provider: 09/25/23 12:57 Mode of Arrival: Wheelchair Source of Information: Patient and Relative Limitations: No Limitations Description of Symptoms (Recalled from ER Triage Doc. by RN): pt presents to ED for complaints of lower back pain and low bp. pts caregiver reports low blood pressure readings this am. pt reports lower back pain that began today History of Present Illness HPI narrative: Please note that above description of symptoms, in this electronic medical record under categorization of recalled from ER triage doctor by RN are reflective of an initial nursing assessment, however, is not reflective of my full history and physical exam that was personally taken and clarified. Consequentially, this preceding description of symptoms, which may include the patient's categorized chief complaint in the EMR, do not reflect my personal clinical impression, and the ultimate description of history of present illness and patient stated complaints should be deferred to this section of the note. Unless stated otherwise or congruent with this section of the note, additional signs, symptoms, or incongruence should be interpreted as inaccurate with my clinical impression. Related Data Home Medications Medication Instructions Recorded Confirmed ascorbate calcium (vitamin C) 500 500 mg PO DAILY Supplement 11/14/17 09/25/23 mg tablet cholecalciferol (vitamin D3) 10 400 unit PO DAILY Supplement 04/18/21 09/25/23 mcg (400 unit) tablet calcium carbonate (Calcium 600) 600 mg PO DAILY SUPPLIMENT 05/15/22 09/25/23 [id number] 250 mg-dha 90 1 cap PO DAILY Vitamin 10/29/22 09/25/23 mg-epa 160 [id number] capsule (Ocuvite Adult 50 Plus) Previous Rx's Medication Instructions Recorded duloxetine 60 mg capsule,delayed 60 mg PO DAILY 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 release sprinkle pain, mood disorder 90 days #90 caps amlodipine 5 mg tablet 5 mg PO DAILY High Blood Pressure 06/21/23 90 days #90 tabs bisoprolol fumarate 5 mg tablet 5 mg PO DAILY BLOOD PRESSURE 90 06/21/23 days #90 tabs docusate sodium 100 mg capsule 100 mg PO BID constipation 30 days 06/21/23 #60 caps simvastatin 40 mg tablet 40 mg PO HS Cholesterol #90 tabs 06/21/23 codeine 10 mg-guaifenesin 100 mg/5 5 ml PO Q6H PRN cough #120 mL 07/04/23 mL oral liquid alprazolam 0.5 mg tablet 0.5 mg PO HS sleep #30 tabs 07/09/23 clopidogrel 75 mg tablet 75 mg PO DAILY Blood thinner 90 07/17/23 days #90 tabs carbidopa 25 mg-levodopa 100 mg 2 tab PO TID Parkinsonian syndrome 07/30/23 tablet 30 days #180 tabs famotidine 20 mg tablet 20 mg PO DAILY 30 days #30 tabs 08/21/23 potassium chloride 20 mEq 20 meq PO DAILY 30 days #30 tabs 08/21/23 tablet,extended release nitrofurantoin 100 mg PO Q12H #20 caps 09/03/23 monohydrate/macrocrystals 100 mg capsule (Macrobid) ondansetron 4 mg disintegrating 4 mg PO BID PRN nausea and 09/03/23 tablet vomiting 5 days #10 tabs zolpidem 10 mg tablet (Ambien) 10 mg PO HS sleep #10 tabs 09/06/23 Allergies Allergy/AdvReac Type Severity Reaction Status Date / Time No Known Allergies Allergy Verified 09/03/23 11:07 [facility] Disclaimer: The information contained in this section may have been updated after the patient was seen, as this information can be updated by other users. Medical History Parkinsonian syndrome Differential diagnosis: Vascular parkinsonism, Parkinson plus, (PSP) patient has frequent falls, Lewy body disease, parkinsonian features with memory loss. Numbness and tingling Likely multifactorial etiology include and polyradiculopathy, spinal stenosis with claudication. Cannot exclude polyneuropathy, small fiber neuropathy in a patient with lung and breast cancer, (remote effects of cancer, paraneoplastic etiology, cannot exclude exposure to chemotherapy, records from [facility] will be requested). Anxiety Hyperlipidemia Hypertension Lung cancer Abnormal PET scan, left lung lower lobe nodule consistent with malignancy. Surgical History History of cholecystectomy H/O mastectomy Family History Mother Cancer Father Stroke Social History Smoking Status: Never smoker smoking status stop date: 01/20/2022 second hand exposure: No alcohol intake: never substance use type: denies use current occupational status: retired Travel in the last 8 weeks: None household members: none housing: house current occupational exposures/hazards: No caffeine: Yes ROS Obtained: Yes All systems reviewed & no additional complaints except as documented Physical Exam General General appearance: alert and in no apparent distress Head Head exam: atraumatic and normocephalic Eye Eye exam: Present normal appearance, PERRL and EOMI ENT ENT exam: Present mucous membranes moist Neck Neck exam: Present normal inspection, full ROM and trachea midline Respiratory Respiratory exam: Absent respiratory distress, wheezes, stridor, accessory muscle use or prolonged expiratory phase Cardiovascular Cardiovascular exam: Present normal rhythm Abdominal Exam Abdominal exam: Present soft; Absent distention, tenderness, guarding, rebound or rigidity Extremities Exam Extremities exam: Absent edema Neurological Exam Neurological exam: Present alert, oriented X3, CN II-XII intact and normal gait; Absent motor sensory deficit Skin Skin exam: Present warm and dry; Absent diaphoresis or erythema Medical Decision Making Medical Records Medical records reviewed: Yes I reviewed the patient's medical records. Patrick Inquiry Pt receiving controlled substance: No Patrick was queried for this patient: No Vital Signs: 09/25/23 12:42 09/25/23 14:00 09/25/23 14:31 Temperature 97.9 F Temperature Source Oral Pulse Rate 59 L 55 L Pulse Rate [Left Radial] 58 L Respiratory Rate 14 Blood Pressure 141/71 H 157/67 H Blood Pressure [Right Arm] 130/72 Blood Pressure Mean [Right Arm] 91 Blood Pressure Source Blood Pressure Position 02 Sat by Pulse Oximetry 97 98 98 Oxygen Delivery Method 09/25/23 15:11 Temperature 98.2 F Temperature Source Oral Pulse Rate 57 L Pulse Rate [Left Radial] Respiratory Rate 18 Blood Pressure 141/65 H Blood Pressure [Right Arm] Blood Pressure Mean [Right Arm] Blood Pressure Source Automatic Cuff Blood Pressure Position Sitting 02 Sat by Pulse Oximetry Oxygen Delivery Method Room Air Lab Data Lab Results 09/25/23 13:06: WBC 5.6, RBC 4.15 L, Hgb 13.2, Hct 39.6, MCV 95.4, MCH 31.9 H, MCHC 33.4, RDW 15.0, Plt Count 367, MPV 7.9, Neut % (Auto) 66.8, Lymph % (Auto) 23.9, [place] % (Auto) 6.2, Eos % (Auto) 2.1, Baso % (Auto) 1.1, Neut # (Auto) 3.7, Lymph # (Auto) 1.3, [place] # (Auto) 0.4, Eos # (Auto) 0.1, Baso # (Auto) 0.1, Sodium 126 L, Potassium 4.3, Chloride 93 L, Carbon Dioxide 25, Anion Gap 12.3, BUN 15, Creatinine 0.80, Estimated Creat Clear 35, Estimated GFR 69, Est GFR ( Amer) 84, Glucose 105 H, Calcium 9.7, Total Bilirubin 0.7, AST 30, ALT 11 L, Alkaline Phosphatase 67, Total Protein 6.8, Albumin 4.2, Globulin 2.6, Albumin/Globulin Ratio 1.6, Lipase 106 09/25/23 13:53: Lactate 1.9 09/25/23 14:15: Urine Color Yellow, Urine Appearance Clear, Urine pH 6.0, Ur Specific [place] 1.020, Urine Protein Negative, Urine Glucose (UA) Negative, Urine Ketones Trace, Urine Blood Negative, Urine Nitrate Negative, Urine Bilirubin Negative, Urine Urobilinogen 0.2, Ur Leukocyte Esterase Trace, Urine RBC Occasional, Urine WBC Occasional, Ur Squamous Epith Cells Occasional, Urine Bacteria Trace 09/25/23 13:06 09/25/23 13:06 Orders (Tests/Meds): ED MEDICATIONS Discontinued Medications Generic Name Dose Route Start Last Admin Trade Name Freq PRN Reason Stop Dose Admin Lactated Ringer's 1,000 mls @ 999 mls/hr 09/25/23 13:05 09/25/23 13:10 Lactated Ringer's 1000 Ml Bag IV 09/25/23 14:05 999 mls/hr .Q1H1M ONE Administration ORDERS Category Date Time Status CBC w/Auto Diff [Complete Blood Count Auto Diff] Stat Lab 09/25/23 13:06 Completed CMP [Comprehensive Metabolic Panel] Stat Lab 09/25/23 13:06 Completed Lactic Acid Stat Lab 09/25/23 13:53 Completed Lipase Stat Lab 09/25/23 13:06 Completed UA [Urinalysis and Microscopic] Stat Lab 09/25/23 14:15 Completed Medical Decision Narrative: 78-year-old female history of hypertension, hyperlipidemia, CVA, UTIs, colitis presenting with low blood pressure, confusion, low back pain. Back pain started yesterday, confusion, per daughter started today and was associated with lower abdominal pain and low blood pressure. Concern for UTI versus other pathology, so came to the emergency department at discretion of family doctor. Patient denying any abdominal pain, dysuria, hematuria, nausea, vomiting, diarrhea, at this time, but is having midline lower back pain that radiates downward toward her tailbone. It should be noted that patient has , which is currently not at goal and complicates care. History was obtained via conversation with patient and family. On arrival, patient hemodynamically stable, alert, oriented x4, appropriate, GCS 15, moving all extremities spontaneously, pupils equal and reactive to light. Full physical exam performed and significant for very well-appearing woman who does not appear to be in any acute distress. Normotensive, bradycardic on arrival. Afebrile, saturating appropriately on room air. Cardiopulmonary exam within normal limits, abdomen soft, some tender in suprapubic area, but no flank tenderness. No overlying skin changes. No pulsatile mass or pulse deficits. Differential includes polypharmacy, metabolic abnormality, UTI, nephrolithiasis, colitis, diverticulitis, mesenteric ischemia, among others. Patient was given 1 L saline bolus for symptomatic management and correction of underlying abnormalities. Workup independently interpreted and significant for nonactionable CBC or chemistry. Patient appears to be chronically hyponatremic, a little less so today, was given fluids for this. Lactate negative, LFTs normal, lipase negative. Because patient well-appearing, asymptomatic on arrival, minimal abdominal tenderness, normal labs, CT imaging of the abdomen pelvis was considered, but not deemed necessary at this time. After fluids, patient also has no abdominal tenderness on repeat evaluation and is also hemodynamically stable. 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 The importance of this was relayed to patient and she voiced understanding. Because patient at baseline without signs or symptoms of clinical decompensation, deemed appropriate for discharge. Results were relayed to patient who voiced understanding and were agreeable to outpatient management and follow up. I discussed my clinical impression with patient and answered all questions. At this time, the evidence for any other entities in the differential is insufficient to warrant any further testing or ED observation. This was explained as well. Advisory was given that persistent or worsening symptoms require further evaluation. I confirmed the understanding of this discussion. Escapement Matcher disclaimer Much of this encounter note is an electronic human resources executive assistant spoken language to printed text. Electronic human resources executive assistant of the spoken language may permit errors. Although I have reviewed the note, some errors may still exist. Critical Care Critical Care Time Critical Care Time: No
[2023-09-25 14:00] VITALS: BP 141/71; PULSE 59; O2SAT 98
[2023-09-25 14:07] LABS: Lactic Acid 1.9 mmol/L (0.7-2.1)
[2023-09-25 14:17] LABS: Microscopic, Urine URINE MICROSCOPIC (MICROSCOPIC)
[2023-09-25 14:31] VITALS: BP 157/67; PULSE 55; O2SAT 98
[2023-09-25 14:32] LABS: Appearance,Urine CLEAR (Clear); Bilirubin,Urine Negative (Negative); Blood, Urine Negative (Negative); Color,Urine YELLOW (Yellow); Glucose,Urine (UA) Negative (Negative); Ketones,Urine TRACE (Negative); Leukocyte Esterase,Urine TRACE (Negative); Nitrate,Urine Negative (Negative); Protein,Urine Negative (Negative); Urobilinogen,Urine 0.2 EU/dl (0.2)
[2023-09-25 14:45] LABS: Bacteria,Urine Trace /lpf; RBC,Urine Occasional #/hpf (0-3); Squamous Epithelial Cell,Urine Occasional #/hpf (0-5); WBC,Urine Occasional #/hpf (0-3)
[2023-09-25 15:11] VITALS: BP 141/65; PULSE 57; RESP 18; TEMP 36.8; O2SAT 98
== END 2023-09-25 15:12 | disposition home or self-care (01) ==
PROVIDERS: Emergency Provider Emergency Medicine; PCP Family Medicine
DX: I95.9 Hypotension, unspecified (principal); E87.1 Hypo-osmolality and hyponatremia; R41.0 Disorientation, unspecified; M54.50 Low back pain, unspecified; E78.5 Hyperlipidemia, unspecified; I10 Essential (primary) hypertension
CPT/HCPCS: 80053; 81001; 83605; 83690; 85025; 96374; 99284; J7120

== ENCOUNTER 2024-02-14 10:24 | Observation (INO) | payer MEDICARE, SELFPAY ==
[2024-02-14] VITALS (14 sets, daily range): BP systolic 100–193; BP diastolic 64–89; PULSE 64–81; RESP 16–18; TEMP 35.5–37.2; O2SAT 94–99; BMI 23.4
--- NOTE | 2024-02-14 10:36 | CT_ITS ---
PROCEDURE INFORMATION: Exam: CT Head Without Contrast Exam date and time: 02/14/2024 11:26 AM Age: 79 years old Clinical indication: Altered mental status/memory loss; Additional info: Fall, AMS TECHNIQUE: Imaging protocol: Computed tomography of the head without contrast. Radiation optimization: All CT scans at this facility use at least one of these dose optimization techniques: automated exposure control; mA and/or kV adjustment per patient size (includes targeted exams where dose is matched to clinical indication); or iterative reconstruction. COMPARISON: CT HEAD/BRAIN WO CON 09/08/2023 2:01 AM FINDINGS: Brain: The brain demonstrates diffuse volume loss. No visible evolving territorial infarct. The appearance of asymmetric right cerebellar hypodensity is probably related to a combination of head tilt, mild motion and streak artifacts related to skull base bone. No hemorrhage. A marked degree of deep white matter hypodensity probably reflecting severe chronic small vessel ischemic change. There are a few small, chronic appearing transcortical cerebral infarcts. Chronic appearing bilateral thalamic and gangliocapsular region lacunar infarcts. There are focal, chronic appearing left cerebellar infarcts. Cerebral ventricles: The ventricles are enlarged in keeping with volume loss, in particular central volume loss. Paranasal sinuses: Visualized sinuses are unremarkable. No fluid levels. Mastoid air cells: Visualized mastoid air cells are well aerated. Bones: No acute fracture seen. Soft tissues: Unremarkable. IMPRESSION: No acute intracranial abnormality seen.
--- NOTE | 2024-02-14 10:36 | XR_ITS ---
PROCEDURE INFORMATION: Exam: XR Chest Exam date and time: 02/14/2024 11:18 AM Age: 79 years old Clinical indication: Cough TECHNIQUE: Imaging protocol: Radiologic exam of the chest. Views: 2 views. COMPARISON: CR XR CHEST 2V 02/14/2024 11:18 AM FINDINGS: Tubes, catheters and devices: A spinal stimulator device electrode plate is noted projecting at the lower thoracic spine. No acute fracture seen. Lungs: The lungs demonstrate hyperinflation. Pleural spaces: Unremarkable. No pleural effusion. No pneumothorax. Heart/Mediastinum: Unremarkable. No cardiomegaly. Bones/joints: Mild exaggeration of the thoracic kyphosis. There is prominent midthoracic degenerative disc disease. Other findings: The patient is rotated to the right. Bilateral breast implants. IMPRESSION: No evidence of lobar pneumonia.
--- NOTE | 2024-02-14 10:38 | HMH.EDGENADL ---
Discharge Plan Disposition Patient Disposition: Admitted Condition: Good Clinical Impressions Clinical Impression: Urinary tract infection, C. difficile colitis, Encephalopathy Discharge ED Provider: Rey Gaspar General Adult HPI General Chief complaint: Fall Stated complaint: Weakness Time Seen by Provider: 02/14/24 10:29 Mode of Arrival: EMS Source of Information: Patient and EMS Limitations: No Limitations Description of Symptoms (Recalled from ER Triage Doc. by RN): Reports being on the floor all night beside her bed. Unsure how she got there. States she just woke up on the floor and stayed there until she pushed her life alert at 930 this morning. Denies any injury. Reports diarrhea and not having her meds in 2 days. History of Present Illness HPI narrative: Jeane Acuna is a 79F with a past medical history of parkinsonian syndrome, anxiety, hypertension, lung cancer presented to the emergency department via EMS after being found on the floor. Patient states that she believes that she fell out of bed at some point last night but did not want to put her medical alert button and bother people. She does note that recently she has had some urinary incontinence and did not want to bother anybody with that as well. She states that she feels mildly confused today and that is not normal for her. She notes that she lives alone but has home health that comes out and helps with medications. She is not sure how long she was down but states that she believes that she did hit her head. She does not know if she takes any anticoagulation. She denies any pain but does report a recent cough. She does report some diarrhea recently. Related Data Home Medications ?Medication ?Instructions ?Recorded ?Confirmed bisoprolol fumarate 5 mg tablet 5 mg PO DAILY 02/14/24 02/14/24 carbidopa 25 mg-levodopa 100 mg 2 tab PO TID 02/14/24 02/14/24 tablet clopidogrel 75 mg tablet 75 mg PO DAILY 02/14/24 02/14/24 simvastatin 40 mg tablet 40 mg PO HS 02/14/24 02/14/24 Previous Rx's ?Medication ?Instructions ?Recorded duloxetine 60 mg capsule,delayed 60 mg PO DAILY 30 days #30 caps 10/22/23 release amlodipine 2.5 mg tablet 2.5 mg PO DAILY 30 days #30 tabs 11/28/23 famotidine 20 mg tablet 20 mg PO DAILY 30 days #30 tabs 11/28/23 potassium chloride 20 mEq 20 meq PO DAILY 30 days #30 tabs 11/28/23 tablet,extended release oxycodone 5 mg tablet 5 mg PO Q6H PRN pain #12 tabs 02/14/24 Allergies Allergy/AdvReac Type Severity Reaction Status Date / Time No Known Allergies Allergy Verified 10/29/23 07:42 [facility] Disclaimer: The information contained in this section may have been updated after the patient was seen, as this information can be updated by other users. Medical History Parkinsonian syndrome Differential diagnosis: Vascular parkinsonism, Parkinson plus, (PSP) patient has frequent falls, Lewy body disease, parkinsonian features with memory loss. Numbness and tingling Likely multifactorial etiology include and polyradiculopathy, spinal stenosis with claudication. Cannot exclude polyneuropathy, small fiber neuropathy in a patient with lung and breast cancer, (remote effects of cancer, paraneoplastic etiology, cannot exclude exposure to chemotherapy, records from [facility] will be requested). Anxiety Hyperlipidemia Hypertension Lung cancer Abnormal PET scan, left lung lower lobe nodule consistent with malignancy. Surgical History History of cholecystectomy H/O mastectomy Family History Mother Cancer Father Stroke Social History Smoking Status: Unknown if ever smoked smoking status stop date: 01/20/2022 second hand exposure: No alcohol intake: never substance use type: denies use current occupational status: retired Travel in the last 8 weeks: None household members: none housing: house current occupational exposures/hazards: No caffeine: Yes Other Medical History Have you received the Flu Vaccine for this season: No Have you received the Pneumonia Vaccine: No ROS Obtained: Yes Systems reviewed as appropriate & no additional complaints except as documented Physical Exam General General appearance: alert and in no apparent distress Head Head exam: atraumatic Eye Eye exam: Present normal appearance ENT ENT exam: Present normal external ear exam Neck Neck exam: Present full ROM Chest Chest inspection: Present symmetric chest wall rise Respiratory Respiratory exam: Present normal lung sounds bilaterally; Absent respiratory distress Cardiovascular Cardiovascular exam: Present regular rate and normal rhythm Abdominal Exam Abdominal exam: Present soft; Absent tenderness or guarding Extremities Exam Extremities exam: Present normal inspection Back Exam Back exam: Present normal inspection Neurological Exam Neurological exam: Present alert and other (Oriented to self and year. Not oriented to location. She does not remember recent events) Skin Skin exam: Present warm and dry Medical Decision Making Medical Records Screening: Per USPSTF and CDC recommendations, given the prevalence of disease in our region, it is our hospital?s policy to screen for HIV and viral Hepatitis for all patients aged 18 and over and those with ongoing risk factors. Patrick Inquiry Pt receiving controlled substance: No Vital Signs: 02/14/24 10:25 02/14/24 10:45 02/14/24 11:21 Temperature 98.4 F Temperature Source Oral Pulse Rate 67 67 Pulse Rate [Radial] 78 Respiratory Rate 18 Blood Pressure 171/79 H 171/79 H Blood Pressure [Right Arm] 193/89 H Blood Pressure Mean 93 Blood Pressure Mean [Right Arm] 123 Blood Pressure Source [Right Arm] Automatic Cuff Blood Pressure Position [Right Arm] Sitting 02 Sat by Pulse Oximetry 96 97 96 Oxygen Delivery Method Room Air 02/14/24 11:45 02/14/24 12:01 02/14/24 12:30 Temperature Temperature Source Pulse Rate 64 78 73 Pulse Rate [Radial] Respiratory Rate Blood Pressure 143/70 H 185/88 H 178/69 H Blood Pressure [Right Arm] Blood Pressure Mean Blood Pressure Mean [Right Arm] Blood Pressure Source [Right Arm] Blood Pressure Position [Right Arm] 02 Sat by Pulse Oximetry 96 95 97 Oxygen Delivery Method Room Air Room Air Room Air 02/14/24 13:00 02/14/24 13:30 02/14/24 14:00 Temperature Temperature Source Pulse Rate 70 76 70 Pulse Rate [Radial] Respiratory Rate Blood Pressure 145/70 H 174/75 H 144/74 H Blood Pressure [Right Arm] Blood Pressure Mean 105 108 114 Blood Pressure Mean [Right Arm] Blood Pressure Source [Right Arm] Blood Pressure Position [Right Arm] 02 Sat by Pulse Oximetry 96 95 96 Oxygen Delivery Method 02/14/24 14:30 02/14/24 15:00 Temperature 96 F L Temperature Source Pulse Rate 72 72 Pulse Rate [Radial] Respiratory Rate Blood Pressure 161/64 H 176/72 H Blood Pressure [Right Arm] Blood Pressure Mean 96 106 Blood Pressure Mean [Right Arm] Blood Pressure Source [Right Arm] Blood Pressure Position [Right Arm] 02 Sat by Pulse Oximetry 97 Oxygen Delivery Method Lab Data Lab Results 02/14/24 10:36: VBG Lactic Acid 2.1 H 02/14/24 10:41: WBC 6.8, RBC 3.84 L, Hgb 12.8, Hct 36.5 L, MCV 95.2, MCH 33.4 H, MCHC 35.1, RDW 13.8, Plt Count 199, MPV 8.3, Neut % (Auto) 85.7 H, Lymph % (Auto) 8.4 L, Fisher % (Auto) 4.3, Eos % (Auto) 1.1, Baso % (Auto) 0.5, Neut # (Auto) 5.8, Lymph # (Auto) 0.6 L, Fisher # (Auto) 0.3, Eos # (Auto) 0.1, Baso # (Auto) 0.0, Total Counted 100, Neutrophils % (Manual) 85 H, Lymphocytes % (Manual) 13, Monocytes % (Manual) 2, Platelet Estimate Normal, RBC Morphology Normal, Sodium 135 L, Potassium 3.4 L, Chloride 101, Carbon Dioxide 25, Anion Gap 12.4, BUN 25 H, Creatinine 0.60, Estimated Creat Clear 39, Estimated GFR 96, Est GFR ( Amer) 116, Glucose 123 H, Calcium 8.7, Total Creatine Kinase 207 H, Troponin I 0.02, HIV 1&2 Antibody Rapid Nonreactive 02/14/24 11:15: Stl Aeromonas (PCR) Not detected, Stl C. cayetanensis PCR Not detected, Stool Rotavirus (PCR) Not detected, Stl Adenov F 40/41 PCR Not detected, Stool Astrovirus (PCR) Not detected, Stool Campylobacter PCR Not detected, Stl C.difficile Tox PCR Detected A, Stool Cryptosporidium PCR Not detected, Stl E.coli Shiga Tox PCR Not detected, Stool E coli O157 PCR Not detected, Stl Enterotoxigenic E PCR Not detected, Stool EPEC (PCR) Not detected, Stool EAEC (PCR) Not detected, Stl E. histolytica PCR Not detected, Stool Giardia Lamblia PCR Not detected, Stool Salmonella PCR Not detected, Stool Sapovirus (PCR) Not detected, Stl P. shigelloides PCR Not detected, Stl Shigella/EIEC PCR Not detected, St Y.enterocolitica PCR Not detected, Stool Vibrio (PCR) Not detected, Stl Vibrio cholerae PCR Not detected, Stl Norovirus GI/GII PCR Not detected 02/14/24 12:15: Urine Color Yellow, Urine Appearance Sl cloudy, Urine pH 6.0, Ur Specific Noel >= 1.030, Urine Protein 1+ A, Urine Glucose (UA) Negative, Urine Ketones 2+, Urine Blood Trace-i, Urine Nitrate Positive, Urine Bilirubin Negative, Urine Urobilinogen 0.2, Ur Leukocyte Esterase 1+ A, Urine RBC None, Urine WBC 5-10, Ur Squamous Epith Cells Occasional, Ur Transition Epith Cell Occ, Urine Bacteria 4+ 02/14/24 10:41 02/14/24 10:41 Orders (Tests/Meds): ED MEDICATIONS Generic Name Dose Route Start Last Admin Trade Name Freq PRN Reason Stop Dose Admin Ceftriaxone Sodium 1 gm/ 50 mls @ 100 mls/hr 02/14/24 13:00 02/14/24 13:16 Sodium Chloride IV 02/24/24 12:59 100 mls/hr Q24H XIOMY Administration Vancomycin HCl 125 mg 02/14/24 17:00 Vancomycin Hcl 50mg/Ml 150ml Kit PO 02/24/24 13:01 QID XIOMY ORDERS Category Date Time Status CT head/brain wo con Stat Cat Scan 02/14/24 10:36 Completed CXR 2 view (NOT portable) [XR chest 2V] Stat Exams 02/14/24 10:36 Completed BMP [Basic Metabolic Panel] Stat Lab 02/14/24 10:41 Completed CBC w/Auto Diff [Complete Blood Count Auto Diff] Stat Lab 02/14/24 10:41 Completed CK [Creatine Kinase] Stat Lab 02/14/24 10:41 Completed Complete Blood Count Auto Diff AMLAB Lab 02/15/24 06:00 Ordered Comprehensive Metabolic Panel AMLAB Lab 02/15/24 06:00 Ordered Diarrhea 23 Panel, PCR Stat Lab 02/14/24 11:15 Completed HIV (1&2) Antibody Rapid Stat Lab 02/14/24 10:41 Completed Hep C Ab with Reflex to RNA Stat Lab 02/14/24 10:41 Received Lactate Venous Stat Lab 02/14/24 10:36 Completed Magnesium AMLAB Lab 02/15/24 06:00 Ordered Troponin I Stat Lab 02/14/24 10:41 Completed UA [Urinalysis and Microscopic] Stat Lab 02/14/24 12:15 Completed Blood Culture Stat Micro 02/14/24 13:24 Ordered Urine Culture Stat Micro 02/14/24 12:15 Received ECG Data Tracing #1: I reviewed this ECG and interpreted as documented below: EKG interpreted by me personally at 1051. Normal sinus rhythm. Normal axis. Normal QTc of 418. Normal [place] interval. No ST elevations or depressions. Medical Decision Narrative: Jeane Acuna is a 79F with a history of parkinsonian syndrome, anxiety, hypertension, lung cancer presenting to the emergency department for complaints of being found down and a fall. Patient is confused to the recent events but believes she may have fallen out of bed sometime within the past day or so. She states that she did not get up because she did not want to bother anybody. She also reports that she has been having some urinary incontinence and been having diarrhea recently. She is complaining of some pain to the back of her head as she believes she may have hit her head on something when she fell. She does note that she feels mildly confused recently. On arrival, patient is hypertensive with blood pressure 193/89, heart rate within normal limits, but appropriately on room air with appropriate oxygen saturation. Physical exam, as stated above, reveals an overall well-appearing female in no distress. She appears well-hydrated. No external evidence of trauma. Patient does appear mildly confused but is oriented to self and year. Differential diagnosis includes: Urinary tract infection, stroke, electrolyte derangement, hypoglycemia, infectious colitis, rhabdomyolysis, ACS, among others Patient's workup in the emergency room included: CBC, lactate, BMP, troponin, CK, urinalysis, stool PCR Patient's workup was significant for stool PCR positive for C. difficile toxin, evidence of urinary tract infection with 4+ bacteria, 5-10 white blood cells, 1+ leukocyte esterase, nitrite positive, initial troponin of 0.02, CK mildly elevated at 207 (appears less than her baseline), glucose of 123, BUN of 25 but creatinine normal at 0.6, potassium 3.4, sodium 135. Lactate mildly elevated at 2.1. No leukocytosis. No anemia. Patient treated with 1 g of IV Rocephin for UTI as well as 125 mg of p.o. vancomycin for her C. difficile colitis. Her daughter had arrived at the bedside and provided additional details. She notes that she is worried about the patient living at home alone that she feels like she is falling more frequently. She notes that over the last several months, she has been more confused than normal and has told her at times that she has either forgotten to eat or forgot to take her medications. Daughter states that they live fairly close by, however there is nobody available to stay with her at all times and are not comfortable with her going home at this time. Given the patient's confusion and likelihood of noncompliance with outpatient therapy, is felt that she would benefit from admission for treatment of her UTI and C. difficile colitis, which may be contributing to her increased confusion. She and her daughter were amenable to this plan. Discussions were then had with Dr. De La Cruz with the hospital medicine service and they agreed to admit the patient. She remained stable throughout her ED visit with some improvement in her blood pressure without intervention. Oxycodone was mistakenly sent to the patient's pharmacy. However, I personally called the patient's pharmacy to cancel the prescription. Patient also incorrectly labeled to have a trimalleolar fracture. This has been removed from the patient's impression list. Critical Care Critical Care Time Critical Care Time: No
--- NOTE | 2024-02-14 10:48 | ECG_ITS ---
APPROVED REPORT Exam: Resting ECG HR:67 bpm ECG Measurements Heart Rate 67 AXES CA 168 P 70 QRSd 84 QRS 20 QT 402 T 62 QTc 418 Conclusion SINUS RHYTHM NONSPECIFIC T-WAVE ABNORMALITY No STEMI Electronically signed by : TOM RECIO, 02/15/2024 07:54:58
[2024-02-14 10:49] LABS: Basophils % 0.5 % (0.1-2.0); Eosinophils # 0.1 K/mm3 (0.0-0.4); Eosinophils % 1.1 % (0.1-12.0); Hematocrit 36.5 % (37.0-47.0); Hemoglobin 12.8 g/dL (12.2-16.2); Lymphocytes # 0.6 K/mm3 (0.7-4.5); Lymphocytes % 8.4 % (10-50); Mean Corpuscular HGB Conc 35.1 g/dL (31.8-35.4); Mean Corpuscular Hemoglobin 33.4 pg (27.0-31.2); Mean Corpuscular Volume 95.2 fl (81-99); Mean Platelet Volume 8.3 fl (7.4-10.4); Monocytes # 0.3 K/mm3 (0.1-1.0); Monocytes % 4.3 % (1.7-9.3); Neutrophils # 5.8 K/mm3 (1.8-7.8); Neutrophils % 85.7 % (37.0-80.0); Platelet Count 199 K/mm3 (142-424); Red Blood Count 3.84 M/mm3 (4.20-5.40); Red Cell Distribution Width 13.8 % (11.5-17.5); White Blood Count 6.8 K/mm3 (4.8-10.8)
--- NOTE | 2024-02-14 10:58 | PC.NURSE ---
RT notified of lactate venous order
[2024-02-14 11:00] LABS: Lactate Venous 2.1 mmol/L (0.4-2.0)
[2024-02-14 11:08] LABS: Chloride 101 mmol/L (98-107); Potassium 3.4 mmoL/L (3.5-5.1); Sodium 135 mmol/L (136-145)
[2024-02-14 11:11] LABS: Blood Urea Nitrogen 25 mg/dl (7-17); Creatine Kinase 207 U/L (30-135); Creatinine Clearance Estimated 39 mL/min (50-200); Estimated Glomerular Filt Rate 96 ml/min (>60); GFR (African American) 116 ML/MIN (>60)
[2024-02-14 11:12] LABS: Anion Gap 12.4 mEq/L (5-15); Calcium 8.7 mg/dl (8.4-10.2); Carbon Dioxide 25 mmol/L (22.0-30.0); Glucose 123 mg/dl (74-100)
[2024-02-14 11:19] LABS: Adenovirus F 40/41, stool Not Detected (NotDetected); Astrovirus Not Detected (NotDetected); Campylobacter Not Detected (NotDetected); Cryptosporidium Not Detected (NotDetected); Cyclospora Cayetanesis Not Detected (NotDetected); Entamoeba histolytica Not Detected (NotDetected); Enteroaggregative E coli Not Detected (NotDetected); Enteropathogenic E coli Not Detected (NotDetected); Enterotoxigenic E coli Not Detected (NotDetected); Giardia lamblia Not Detected (NotDetected); Norovirus Not Detected (NotDetected); Plesimonas Shigalloides, PCR Not Detected (NotDetected); Rotavirus A Not Detected (NotDetected); Salmonella, PCR Not Detected (NotDetected); Sapovirus Not Detected (NotDetected); Shiga-like toxin E coli Not Detected (NotDetected); Shigella Enterovasive E coli Not Detected (NotDetected); Vibrio Cholerae Not Detected (NotDetected); Vibrio, PCR Not Detected (NotDetected); Yersinia Entercolitica, PCR Not Detected (NotDetected)
--- NOTE | 2024-02-14 11:19 | PC.NURSE ---
Placed pt on bedpan to obtain urine sample. Pt did not urinate but did have a bowel movement.
[2024-02-14 11:23] LABS: Troponin I 0.02 ng/ml (0.00-0.034)
[2024-02-14 11:25] LABS: MANUAL DIFFERENTIAL MANUAL DIFFERENTIAL (MANUAL DIFF)
--- NOTE | 2024-02-14 11:26 | PC.NURSE ---
Pt gone to RAD via stretcher
--- NOTE | 2024-02-14 11:30 | PC.NURSE ---
Pt returned to room from RAD
[2024-02-14 12:01] LABS: Lymphocytes % 13 % (10-50); Monocytes % 2 % (2-9); Neutrophils % 85 % (42-76); Platelet Estimate Normal; RBC Morphology Normal; Total Cells Counted 100
[2024-02-14 12:21] LABS: Microscopic, Urine URINE MICROSCOPIC (MICROSCOPIC)
[2024-02-14 12:23] LABS: Appearance,Urine SL CLOUDY (Clear); Bilirubin,Urine Negative (Negative); Blood, Urine TRACE-I (Negative); Color,Urine YELLOW (Yellow); Glucose,Urine (UA) Negative (Negative); Ketones,Urine 2+ (Negative); Leukocyte Esterase,Urine 1+ (Negative); Nitrate,Urine POSITIVE (Negative); Protein,Urine 1+ (Negative); Specific Gravity, Urine >= 1.030 (1.005-1.030); Urobilinogen,Urine 0.2 EU/dl (0.2)
[2024-02-14 12:37] LABS: Bacteria,Urine 4+ /lpf; Squamous Epithelial Cell,Urine Occasional #/hpf (0-5); Transitional Epi Cells,Urine OCC #/lpf (0-3)
[2024-02-14] MEDS: CEFTRIAXONE 1 GM 1 GM in 0.9 % SODIUM CHLORIDE 50 ML IV (13:16)
--- NOTE | 2024-02-14 13:18 | PC.NURSE ---
I rounded on the pt, no needs voiced. no new complaints. call garcia in reach.
[2024-02-14 14:05] LABS: Clostridium Difficile A/B, PCR Detected (NotDetected)
--- NOTE | 2024-02-14 14:24 | P.HP_ITS ---
History of Present Illness *Admission Date: 02/14/24 *Reason for visit:: Weakness, fall *History of present illness: 79-year-old female who was brought in by EMS after pushing her life alert at 930 this morning. She has a history of parkinsonian syndrome, anxiety, hypertension, lung cancer. Appeared more confused per family. States she has been having loose watery diarrhea. Worse over the past few days. Unsure how she got to the ER. On evaluation, denies nausea or vomiting. Thinks she fell out of bed at some point in the night. States she woke up covered with stool. Been having some urinary incontinence. Does feel mildly confused per her report. Workup in the ER with Normal white count at 6.8, kidney function with creatinine 0.6 but BUN elevated 25. Stool obtained showing C. difficile. Urine grossly abnormal. Medicine consulted for admission for treatment of C. di fficile and UTI. Relation, patient is pleasant but does appear confused. Answers are tangential to questions. I had to leave the room during interview and when I came back and, it was unclear if she recognized me from having just been in the room. Was surprised I pronounced her name correctly which I did not do the first time we spoke. Strong concern for altered mental status/encephalopathy. Patient quite weak. Has been evaluated by therapy already while in the ER, recommend placement. [facility] Disclaimer: The information contained in this section may have been updated after the patient was seen, as this information can be updated by other users. Medical History Parkinsonian syndrome Numbness and tingling Anxiety Hyperlipidemia Hypertension Lung cancer Surgical History History of cholecystectomy H/O mastectomy Family History Mother Cancer Father Stroke Social History Smoking Status: Unknown if ever smoked smoking status stop date: 01/20/2022 second hand exposure: No alcohol intake: never substance use type: denies use current occupational status: retired Travel in the last 8 weeks: None household members: none housing: house current occupational exposures/hazards: No caffeine: Yes Other Medical History Have you received the Flu Vaccine for this season: No Have you received the Pneumonia Vaccine: No Review of Systems Review of Systems Review of systems (narrative): 14 point review of systems performed, pertinent positives and negatives as per HPI Meds Home Medications and Allergies Home Medications ?Medication ?Instructions ?Recorded ?Confirmed ?Type duloxetine 60 mg capsule,delayed 60 mg PO DAILY 30 days #30 caps 10/22/23 02/14/24 Rx release amlodipine 2.5 mg tablet 2.5 mg PO DAILY 30 days #30 tabs 11/28/23 02/14/24 Rx famotidine 20 mg tablet 20 mg PO DAILY 30 days #30 tabs 11/28/23 02/14/24 Rx potassium chloride 20 mEq 20 meq PO DAILY 30 days #30 tabs 11/28/23 02/14/24 Rx tablet,extended release bisoprolol fumarate 5 mg tablet 5 mg PO DAILY 02/14/24 02/14/24 History carbidopa 25 mg-levodopa 100 mg 2 tab PO TID 02/14/24 02/14/24 History tablet clopidogrel 75 mg tablet 75 mg PO DAILY 02/14/24 02/14/24 History oxycodone 5 mg tablet 5 mg PO Q6H PRN pain #12 tabs 02/14/24 Rx simvastatin 40 mg tablet 40 mg PO HS 02/14/24 02/14/24 History New Prescriptions to Start Prescriptions: oxycodone Rey Gaspar Allergies Allergy/AdvReac Type Severity Reaction Status Date / Time No Known Allergies Allergy Verified 10/29/23 07:42 Exam Data for Last 24 hours Vital signs and Labs for Last 24 Hours: Temp Pulse Resp BP Pulse Ox O2 Del Method 98.4 F 70 18 144/74 H 96 Room Air 02/14/24 10:25 02/14/24 14:00 02/14/24 10:25 02/14/24 14:00 02/14/24 14:00 02/14/24 12:30 Laboratory Results - last 24 hr 02/14/24 10:36: VBG Lactic Acid 2.1 H 02/14/24 10:41: WBC 6.8, RBC 3.84 L, Hgb 12.8, Hct 36.5 L, MCV 95.2, MCH 33.4 H, MCHC 35.1, RDW 13.8, Plt Count 199, MPV 8.3, Neut % (Auto) 85.7 H, Lymph % (Auto) 8.4 L, [place] % (Auto) 4.3, Eos % (Auto) 1.1, Baso % (Auto) 0.5, Neut # (Auto) 5.8, Lymph # (Auto) 0.6 L, [place] # (Auto) 0.3, Eos # (Auto) 0.1, Baso # (Auto) 0.0, Total Counted 100, Neutrophils % (Manual) 85 H, Lymphocytes % (Manual) 13, Monocytes % (Manual) 2, Platelet Estimate Normal, RBC Morphology Normal, Sodium 135 L, Potassium 3.4 L, Chloride 101, Carbon Dioxide 25, Anion Gap 12.4, BUN 25 H, Creatinine 0.60, Estimated Creat Clear 39, Estimated GFR 96, Est GFR ( Amer) 116, Glucose 123 H, Calcium 8.7, Total Creatine Kinase 207 H, Troponin I 0.02 02/14/24 11:15: Stl Aeromonas (PCR) Not detected, Stl C. cayetanensis PCR Not detected, Stool Rotavirus (PCR) Not detected, Stl Adenov F 40/41 PCR Not detected, Stool Astrovirus (PCR) Not detected, Stool Campylobacter PCR Not detected, Stl C.difficile Tox PCR Detected A, Stool Cryptosporidium PCR Not detected, Stl E.coli Shiga Tox PCR Not detected, Stool E coli O157 PCR Not detected, Stl Enterotoxigenic E PCR Not detected, Stool EPEC (PCR) Not detected, Stool EAEC (PCR) Not detected, Stl E. histolytica PCR Not detected, Stool Giardia Lamblia PCR Not detected, Stool Salmonella PCR Not detected, Stool Sapovirus (PCR) Not detected, Stl P. shigelloides PCR Not detected, Stl Shigella/EIEC PCR Not detected, St Y.enterocolitica PCR Not detected, Stool Vibrio (PCR) Not detected, Stl Vibrio cholerae PCR Not detected, Stl Norovirus GI/GII PCR Not detected 02/14/24 12:15: Urine Color Yellow, Urine Appearance Sl cloudy, Urine pH 6.0, Ur Specific [place] >= 1.030, Urine Protein 1+ A, Urine Glucose (UA) Negative, Urine Ketones 2+, Urine Blood Trace-i, Urine Nitrate Positive, Urine Bilirubin Negative, Urine Urobilinogen 0.2, Ur Leukocyte Esterase 1+ A, Urine RBC None, Urine WBC 5-10, Ur Squamous Epith Cells Occasional, Ur Transition Epith Cell Occ, Urine Bacteria 4+ I & O for Last 24 hours: Intake & Output 02/11/24 02/12/24 02/13/24 02/14/24 23:59 23:59 23:59 23:59 Weight 54.431 kg Constitutional Constitutional: no acute distress, thin and cooperative *Routine HEENT Exam Head: Present normocephalic Eye: Present EOMI ENT: Present mucous membranes moist *Routine Neck Exam Neck: Present full ROM *Routine Respiratory Exam Respiratory: Present CTA bilaterally; Absent respiratory distress, rhonchi, wheezes or crackles *Routine Cardiovascular Exam Cardiovascular: Present RRR *Routine Abdominal Exam Abdominal: Present soft and normoactive bowel sounds; Absent tenderness *Routine Rectal Exam Rectal:: deferred *Routine Genitalia Exam Genitalia:: deferred *Routine Extremities Exam Extremities: Present full ROM, pulses intact and tenderness (chronic back pain); Absent edema Routine Back/Spine/Pelvis Exam Back/Spine: Present vertebral tenderness *Routine Skin Exam Skin: Present intact *Routine Neurological Exam Neurological: Present alert, altered mental status and moving all extremities Comments: Alert to person. Not sure where she is. Pleasant on interview. Answers questions somewhat appropriately but answers are tangential and Mander to alternate subjects Assessment and Plan *Assessment and plan (1) Encephalopathy: Status: Acute Category: Medical Code(s): G93.40 - Encephalopathy, unspecified (2) UTI (urinary tract infection): Status: Acute Category: Medical Code(s): N39.0 - Urinary tract infection, site not specified (3) C. difficile colitis: Status: Acute Category: Medical Code(s): A04.72 - Enterocolitis due to Clostridium difficile, not specified as recurrent (4) Parkinsonian syndrome: Problem Comment: Differential diagnosis: Vascular parkinsonism, Parkinson plus, (PSP) patient has frequent falls, Lewy body disease, parkinsonian features with memory loss. 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 Status: Chronic Qualifiers: Laterality: unspecified laterality Lung location: unspecified part of lung Qualified Code(s): C34.90 - Malignant neoplasm of unspecified part of unspecified bronchus or lung Category: Medical Code(s): C34.90 - Malignant neoplasm of unspecified part of unspecified bronchus or lung Plan 79-year-old female who presented to the ER via EMS after being found on the floor and hitting her life alert button. On workup in the ER, concern for UTI and C. difficile along with encephalopathy. Discussed case with ER physician, request admission for further treatment and management. I agreed to admit for further management. Therapy is evaluated, recommend placement given her weakness and instability. Will continue with IV and oral antibiotics for her infections pending urine cultures. Necessitating inpatient admission. Problems addressed as follows: Encephalopathy -Multifactorial, concern for component of mild cognitive impairment with superimposed infection. Monitor for improvement with treatment of underlying infections. UTI JACOBY - Urine grossly abnormal with positive nitrate, positive leuk esterase, 5-10 white cells and 4+ bacteria. Received 1 g ceftriaxone in the ER, will continue daily pending urine culture. -BUN elevated 25, Cr 0.7 concern for prerenal state. Will administer gentle rehydration given diarrhea and fluid shifts. Repeat CBC, CMP, magnesium ordered for the morning. C. difficile diarrhea -Stool panel positive for C. difficile. Continue vancomycin 125 mg p.o. 4 times a day for 10 days Hypertension: Hold home blood pressure meds in the setting of hypotension. Parkinsonism: Continue carbidopa/levodopa 2 tablets TID per home regimen Continue Plavix 75 mg daily for CAD Hold statin Therapy evaluated, patient weak and debilitated, not safe to discharge home by herself. Recommend consideration for placement if does not have family or caregiver with her 12/11. Will consult case management to assist with dispo planning. Full code Regular diet
--- NOTE | 2024-02-14 14:26 | PC.NURSE ---
called house for admission
--- NOTE | 2024-02-14 14:37 | PC.NURSE ---
called dietary for a meal tray
--- NOTE | 2024-02-14 14:44 | PC.NURSE ---
Dr. Gaspar notified of +CDiff results.
[2024-02-14 15:01] LABS: Reflex Lactic Add Lactic Reflex
--- NOTE | 2024-02-14 15:01 | PC.NURSE ---
Tried to call report, the nurse is assisting with another pt and will call me back.
--- NOTE | 2024-02-14 15:04 | PC.NURSE ---
Yenny from LAB called for second set of cultures to be drawn on pt. Advised that cultures had already been drawn and sent to LAB, and I had previously spoken with LAB to confirm that they had been received. Yenny advised she would get back to me.
[2024-02-14 15:12] LABS: HIV (1&2) Antibody Rapid NONREACTIVE (NONREACTIVE)
--- NOTE | 2024-02-14 15:13 | PC.NURSE ---
PT at BS for eval
--- NOTE | 2024-02-14 15:14 | HMH.PHAINT1 ---
Pharmacy Intervention Comments: MEDICATION RECONCILIATION COMPLETED ON PATIENT USING EXTERNAL FILL HISTORY FROM PHARMACY. -CHELSEY KRAUSE, EMMAD
--- NOTE | 2024-02-14 15:19 | PC.NURSE ---
informed pt of the fire drill at this time. no needs reported. PT still at bedside
--- NOTE | 2024-02-14 15:22 | PC.NURSE ---
Report called to Shakila FOLEY
--- NOTE | 2024-02-14 15:31 | PC.NURSE ---
lead quality technician at to transfer patient to the floor
--- NOTE | 2024-02-14 15:32 | PC.NURSE ---
Repeat lactic drawn and sent to lab.
--- NOTE | 2024-02-14 15:40 | HMH.PTEV ---
Physical Therapy Evaluation Rehab PT IP Evaluation Start: 02/14/24 14:23 Freq: ONCE Status: Active Protocol: Document 02/14/24 15:28 PHOKATHERINE (Rec: 02/14/24 15:39 PHORNE [id number]) Subjective/History History History 79 yowf brought into ED after found down at home for significant length of time. Pt has general weakness with diarrhea as well. Found to be C-diff +. She reports she generally ambulates with RW, lives alone, no steps to enter the home, and is independent with all of her ADLs. She has PMH of Parkinson's disease, lung and breast cancer. Subjective Subjective Pt agrees to mobility assessment this pm, she reports no c/o pain, but appears generally pleasantly confused. Rehab PT IP Eval Objective Appearance Patient Behavior Appropriate,Distractible Patient Orientation Person,Place,Time Difficulty following instructions mild Speech Pattern Clear Ambulation Patient Able to Ambulate Yes Ambulation Observation IP General Gait Pattern Observation Shuffling Step,Decrease Stride Lngth (R),Decrease Stride Lngth (L) Ambulation Distance (feet) 20 Ambulation Assistive Device None Ambulation Ability Minimal x 2 (25% assist) Balance Ability to Arise Able, uses arms to help Sitting Balance Steady, safe Standing Balance Unsteady Dynamic Sitting Balance Ability Good Dynamic Standing Balance Ability Poor Transfers Bed Transfer Ability Minimal x 2 (25% assist) Chair Transfer Ability Minimal x 2 (25% assist) Sit to Stand Bed Transfer Ability Minimal x 2 (25% assist) Sit to Stand Chair Transfer Ability Minimal x 2 (25% assist) Rehab PT IP prob,goals,plan Problems Date of Evaluation: 02/14/24 PT IP Problems Bed Mobility,Transfers,Gait, Self care,Safety Rehab Potential Rehab Potential Good Plan PT Intervention Plan Bed Mobility,Transfers,Gait, Self care,Safety,Therapeutic Exercise PT Plan Frequency Daily Duration LOS Discharge Goals Bed Transfer Ability Contact Guard/Hand Hold Sit to Stand Chair Transfer Ability Contact Guard/Hand Hold Ambulation Assistive Device Rolling Walker Ambulation Distance (feet) 40 Discharge Plan PT Discharge Plan Pt is currently most appropriate for rehab placement once medically stable for d/c. She might be able to return home with 24 hr assist if all goals are met and rehab placement is unavailable. Skilled therapy services are indicated to improve strength, increase independent mobility and return pt to [facility]. PHYSICIAN CERTIFICATION: I certify the specified therapy services for Jeane Guillory Acuna are required, authorized, and reviewed every 30 days.
--- NOTE | 2024-02-14 15:50 | HMH.OTEV ---
OT Inpatient Evaluation Rehab OT IP Evaluation Start: 02/14/24 14:23 Freq: ONCE Status: Active Protocol: Document 02/14/24 15:27 PETERMARIO (Rec: 02/14/24 15:50 JUAN [id number]) Rehab OT IP Assessment Subjective History Jeane Acuna is a 79F with a past medical history of parkinsonian syndrome, anxiety , hypertension, lung cancer presented to the emergency department via EMS after being found on the floor. Patient states that she believes that she fell out of bed at some point last night but did not want to put her medical alert button and bother people. She does note that recently she has had some urinary incontinence and did not want to bother anybody with that as well. She states that she feels mildly confused today and that is not normal for her . She notes that she lives alone but has home health that comes out and helps with medications. She is not sure how long she was down but states that she believes that she did hit her head. She does not know if she takes any anticoagulation. She denies any pain but does report a recent cough. She does report some diarrhea recently. Patient lives alone in 1 story . Uses a RW to ambulate within home. Completed all ADLs and fx'l mobility at home. Hx of falling. Fell on the floor with life alarm on her but refused to use it because she didn't want to bother anyone. Patient laid on the floor at her home for hours Subjective I can try to get up. Instructed Patient on proper hand and foot placement to complete bed mobility from supine->sit @ EOB->stand requiring Min A. Patient maneuver around in then environment with usage of RW ~ 30ft. Patient required MOd A to complete EOB->supine. Objective Patient Orientation Person,Name,Age Right Upper Extremity Gross ROM WFL Left Upper Extremity Gross ROM WFL Bed Mobility bed mobility - supine/sit Assist Level Minimal x 1 (25% assist) Transfer Training Sit/Stand Transfer Assist Level Contact Guard/Hand Hold Chair Transfer Ability Minimal x 1 (25% assist) Chair Transfer Technique Sit to/from Ambulatory Chair Transfer Assistive Devices Rolling Walker Rehab OT IP prob,goals,plan Problems Date of Evaluation: 02/14/24 OT IP Problems Bed Mobility,Transfers,Balance ,Self care,Safety Rehab Potential Rehab Potential Good Equipment Needs Assistive Devices Rolling / Wheeled Walker Plan OT intervention Plan Bed Mobility,Transfers,Balance ,Self care,Safety,Therapeutic Exercise OT Plan Frequency Daily Duration LOS Discharge Goals Bed Mobility Ability Assistance x1 Sit to Stand Chair Transfer Ability Contact Guard/Hand Hold Chair Transfer Ability Minimal x 1 (25% assist) Chair Transfer Technique Sit to/from Ambulatory Chair Transfer Assistive Devices Rolling Walker Discharge Plan OT Discharge Plan Referred patient to SNF for rehabilitation. Patient to continue skilled OT services while here at [facility]. Eval Complexity Eval Charge Codes 54563 - Low Complexity PHYSICIAN CERTIFICATION: I certify the specified therapy services for Jeane Acuna are required, authorized, and reviewed every 30 days.
--- NOTE | 2024-02-14 15:52 | PC.NURSE ---
arrived by stretcher from ED at 15:45
[2024-02-14 16:03] LABS: Lactic Acid Follow Up (RFLX 1) 1.4 mmol/L (0.7-2.1)
[2024-02-14] MEDS: VANCOMYCIN HCL 50MG/ML 150ML KIT 125 MG PO ×2 (16:45→20:29)
[2024-02-14] MEDS: LACTATED RINGERS 1000ML 1,000 ML 250 ML IV (17:13)
--- NOTE | 2024-02-14 18:12 | PC.NURSE ---
PT IS PLEASANT, ALERT AND ORIENTED X4 WITH INTERMITTENT CONFUSION. NO SKIN ISSUES NOTED. CURRENTLY LYING IN BED WATCHING TV WITH CB AND PERSONAL ITEMS WITHIN REACH. X1 EPISODE OF DIARRHEA SINCE ARRIVING TO FLOOR. X2 ASSIST AMBULATING TO THE BR DUE TO WEAKNESS AND UNSTEADY GAIT.
[2024-02-14] MEDS: CARBIDOPA/LEVODOPA 25/100MG TABLET 2 EACH PO (20:28)
[2024-02-15 04:00] VITALS: BP 147/71; PULSE 75; RESP 16; TEMP 36.9; O2SAT 93; BMI 21.7
--- NOTE | 2024-02-15 05:44 | PC.NURSE ---
Alert to person, place, and situation. Patient unsure of time. Pt has had no complaints this shift and has rested well. 1L infused per jun. Pt woke up for vital sign assessment and was slightly more confused, ask if she needed to use the restroom, dry at check, obtained vital signs, checked patient again, and incontinent of the brief per tech. Patient responds to voice and follows commands appropriately. Bed alarm on. Call light in reach.
[2024-02-15 07:18] LABS: Basophils % 0.2 % (0.1-2.0); Eosinophils % 0.7 % (0.1-12.0); Hematocrit 34.1 % (37.0-47.0); Hemoglobin 11.8 g/dL (12.2-16.2); Lymphocytes # 0.8 K/mm3 (0.7-4.5); Lymphocytes % 19.8 % (10-50); Mean Corpuscular HGB Conc 34.7 g/dL (31.8-35.4); Mean Corpuscular Hemoglobin 32.9 pg (27.0-31.2); Mean Corpuscular Volume 94.9 fl (81-99); Mean Platelet Volume 8.5 fl (7.4-10.4); Monocytes # 0.4 K/mm3 (0.1-1.0); Monocytes % 9.2 % (1.7-9.3); Neutrophils # 2.7 K/mm3 (1.8-7.8); Neutrophils % 70.1 % (37.0-80.0); Platelet Count 194 K/mm3 (142-424); Red Blood Count 3.59 M/mm3 (4.20-5.40); Red Cell Distribution Width 13.8 % (11.5-17.5); White Blood Count 3.8 K/mm3 (4.8-10.8)
[2024-02-15 07:26] LABS: Chloride 102 mmol/L (98-107); Sodium 132 mmol/L (136-145)
[2024-02-15 07:29] LABS: Alanine Aminotransferase 6 U/L (12-78); Albumin/Globulin Ratio 1.8 (1.1-1.8); Alkaline Phosphatase 64 U/L (38-126); Aspartate Amino Transferase 29 U/L (14-36); Bilirubin,Total 0.5 mg/dl (0.2-1.3); Blood Urea Nitrogen 19 mg/dl (7-17); Creatinine Clearance Estimated 36 mL/min (50-200); Estimated Glomerular Filt Rate 119 ml/min (>60); GFR (African American) 144 ML/MIN (>60); Globulin 1.7 g/dL (1.3-3.2); Potassium 2.9 mmoL/L (3.5-5.1); Total Protein,Serum 4.7 g/dl (6.3-8.2)
[2024-02-15 07:30] LABS: Calcium 8.2 mg/dl (8.4-10.2); Glucose 105 mg/dl (74-100); Magnesium 1.6 mg/dl (1.6-2.3)
[2024-02-15 07:32] LABS: Anion Gap 7.9 mEq/L (5-15)
[2024-02-15 07:33] LABS: Carbon Dioxide 25 mmol/L (22.0-30.0)
[2024-02-15 08:00] VITALS: BP 160/80; PULSE 85; RESP 19; TEMP 37.6; O2SAT 93
[2024-02-15] MEDS: CLOPIDOGREL 75MG TAB 75 MG PO (08:48)
[2024-02-15] MEDS: CARBIDOPA/LEVODOPA 25/100MG TABLET 2 EACH PO ×3 (08:48→20:20)
[2024-02-15] MEDS: FAMOTIDINE 20MG TABLET 20 MG PO (08:48)
[2024-02-15] MEDS: MAGNESIUM SULFATE IN WATER 2 GM/50 ML PIGGYBACK IV (08:48)
[2024-02-15] MEDS: DULOXETINE 30MG CAPSULE.DR 60 MG PO (08:48)
[2024-02-15] MEDS: POTASSIUM CHLORIDE 20MEQ TAB 40 MEQ PO ×3 (08:49→20:21)
[2024-02-15] MEDS: VANCOMYCIN HCL 50MG/ML 150ML KIT 125 MG PO ×4 (08:50→20:21)
[2024-02-15 08:51] LABS: HCV Ab Non Reactive (Non Reactive)
--- NOTE | 2024-02-15 09:43 | EXP.ACUTE.PN ---
Subjective *Date: 02/15/24 *Time: 13:35 Interval history: Feeling better this morning. Still having bowel movements. No fever overnight. Tolerating p.o. intake. [id number] at bedside Medical Exam Vital signs and Labs for Last 24 Hours: Vital Signs Temp Pulse Pulse Resp BP BP Pulse Ox 02/15/24 08:00 99.7 F H 85 19 160/80 H 93 L 02/15/24 06:37 02/15/24 05:00 02/15/24 04:00 98.5 F 75 16 147/71 H 93 L 02/15/24 03:00 02/15/24 01:00 02/14/24 22:40 02/14/24 20:40 02/14/24 20:00 02/14/24 19:30 98.6 F 81 16 155/65 H 94 L 02/14/24 18:52 02/14/24 16:00 99.0 F 76 16 100/79 L 99 02/14/24 16:00 02/14/24 15:28 98.4 F 74 16 166/72 H 02/14/24 15:00 96 F L 72 176/72 H 02/14/24 14:30 72 161/64 H 97 02/14/24 14:00 70 144/74 H 96 02/14/24 13:30 76 174/75 H 95 02/14/24 13:00 70 145/70 H 96 02/14/24 12:30 73 178/69 H 97 02/14/24 12:01 78 185/88 H 95 02/14/24 11:45 64 143/70 H 96 02/14/24 11:21 67 171/79 H 96 02/14/24 10:45 67 171/79 H 97 02/14/24 10:25 98.4 F 78 18 193/89 H 96 O2 Del Method 02/15/24 08:00 Room Air 02/15/24 06:37 Room Air 02/15/24 05:00 Room Air 02/15/24 04:00 Room Air 02/15/24 03:00 Room Air 02/15/24 01:00 Room Air 02/14/24 22:40 Room Air 02/14/24 20:40 Room Air 02/14/24 20:00 Room Air 02/14/24 19:30 Room Air 02/14/24 18:52 Room Air 02/14/24 16:00 Room Air 02/14/24 16:00 Room Air 02/14/24 15:28 02/14/24 15:00 02/14/24 14:30 02/14/24 14:00 02/14/24 13:30 02/14/24 13:00 02/14/24 12:30 Room Air 02/14/24 12:01 Room Air 02/14/24 11:45 Room Air 02/14/24 11:21 02/14/24 10:45 02/14/24 10:25 Room Air Intake and Output 02/14/24 02/15/24 02/15/24 23:59 07:59 15:59 Intake Total 1782 / 1782 240 / 240 Output Total 0 / 0 0 / 0 Balance 1782 / 1782 0 / 240 240 / 240 Intake: Intake, Oral Amount 450 / 450 240 / 240 Intake, Total IV Amount 1332 / 1332 Lactated Ringers 1000ML 1,000 1332 / 1332 ml @ 250 mls/hr IV .Q4H ONE Rx# :[id number] Output: Output, Urine Amount 0 / 0 0 / 0 Other: Number of Unmeasured Voids 1 1 Number of Bowel Movements 2 1 Weight 50.167 kg Patient Weight 02/15/24 23:59 Weight 50.167 kg Laboratory Results - last 24 hr 02/14/24 10:36: VBG Lactic Acid 2.1 H 02/14/24 10:41: WBC 6.8, RBC 3.84 L, Hgb 12.8, Hct 36.5 L, MCV 95.2, MCH 33.4 H, MCHC 35.1, RDW 13.8, Plt Count 199, MPV 8.3, Neut % (Auto) 85.7 H, Lymph % (Auto) 8.4 L, Hancock % (Auto) 4.3, Eos % (Auto) 1.1, Baso % (Auto) 0.5, Neut # (Auto) 5.8, Lymph # (Auto) 0.6 L, [place] # (Auto) 0.3, Eos # (Auto) 0.1, Baso # (Auto) 0.0, Total Counted 100, Neutrophils % (Manual) 85 H, Lymphocytes % (Manual) 13, Monocytes % (Manual) 2, Platelet Estimate Normal, RBC Morphology Normal, Sodium 135 L, Potassium 3.4 L, Chloride 101, Carbon Dioxide 25, Anion Gap 12.4, BUN 25 H, Creatinine 0.60, Estimated Creat Clear 39, Estimated GFR 96, Est GFR ( Amer) 116, Glucose 123 H, Calcium 8.7, Total Creatine Kinase 207 H, Troponin I 0.02, Hepatitis C Antibody Non reactive, HIV 1&2 Antibody Rapid Nonreactive 02/14/24 11:15: Stl Aeromonas (PCR) Not detected, Stl C. cayetanensis PCR Not detected, Stool Rotavirus (PCR) Not detected, Stl Adenov F 40/41 PCR Not detected, Stool Astrovirus (PCR) Not detected, Stool Campylobacter PCR Not detected, Stl C.difficile Tox PCR Detected A, Stool Cryptosporidium PCR Not detected, Stl E.coli Shiga Tox PCR Not detected, Stool E coli O157 PCR Not detected, Stl Enterotoxigenic E PCR Not detected, Stool EPEC (PCR) Not detected, Stool EAEC (PCR) Not detected, Stl E. histolytica PCR Not detected, Stool Giardia Lamblia PCR Not detected, Stool Salmonella PCR Not detected, Stool Sapovirus (PCR) Not detected, Stl P. shigelloides PCR Not detected, Stl Shigella/EIEC PCR Not detected, St Y.enterocolitica PCR Not detected, Stool Vibrio (PCR) Not detected, Stl Vibrio cholerae PCR Not detected, Stl Norovirus GI/GII PCR Not detected 02/14/24 12:15: Urine Color Yellow, Urine Appearance Sl cloudy, Urine pH 6.0, Ur Specific [place] >= 1.030, Urine Protein 1+ A, Urine Glucose (UA) Negative, Urine Ketones 2+, Urine Blood Trace-i, Urine Nitrate Positive, Urine Bilirubin Negative, Urine Urobilinogen 0.2, Ur Leukocyte Esterase 1+ A, Urine RBC None, Urine WBC 5-10, Ur Squamous Epith Cells Occasional, Ur Transition Epith Cell Occ, Urine Bacteria 4+ 02/14/24 15:30: Lactate 1.4 02/15/24 06:50: WBC 3.8 L D, RBC 3.59 L, Hgb 11.8 L, Hct 34.1 L, MCV 94.9, MCH 32.9 H, MCHC 34.7, RDW 13.8, Plt Count 194, MPV 8.5, Neut % (Auto) 70.1, Lymph % (Auto) 19.8, Hancock % (Auto) 9.2, Eos % (Auto) 0.7, Baso % (Auto) 0.2, Neut # (Auto) 2.7, Lymph # (Auto) 0.8, Hancock # (Auto) 0.4, Eos # (Auto) 0.0, Baso # (Auto) 0.0, Sodium 132 L, Potassium 2.9 L*, Chloride 102, Carbon Dioxide 25, Anion Gap 7.9, BUN 19 H, Creatinine 0.50 L, Estimated Creat Clear 36, Estimated GFR 119, Est GFR ( Amer) 144 D, Glucose 105 H, Calcium 8.2 L, Magnesium 1.6, Total Bilirubin 0.5, AST 29, ALT 6 L, Alkaline Phosphatase 64, Total Protein 4.7 L D, Albumin 3.0 L, Globulin 1.7, Albumin/Globulin Ratio 1.8 I & O for Labs for Last 24 Hours: Intake & Output 02/12/24 02/13/24 02/14/24 02/15/24 23:59 23:59 23:59 23:59 Intake Total 1782 / 1782 240 / 240 Output Total 0 / 0 0 / 0 Balance 1782 / 1782 240 / 240 Weight 54.431 kg 50.167 kg Microbiology Reports for the Last 24 Hours: Microbiology 02/14/24 12:15 Urine,Clean Catch Urine Culture - Preliminary Gram Negative Rods Constitutional: Present no acute distress, thin and cooperative Head: Present atraumatic and normocephalic ENT: Present normal exam Respiratory: Present normal respiratory effort; Absent respiratory distress, rhonchi, stridor, wheezes or crackles Cardiac: Present Reg Rate and Rhythm GI: Present soft and normal bowel sounds; Absent distention or tenderness Extremities: Present normal inspection and full ROM Skin: Present intact; Absent erythema Neuro: Present Grossly Intact, alert, awake and moves all extremities Comment:: oriented to self and place Assessment and Plan *Assessment and plan (1) Encephalopathy: Status: Acute Category: Medical Code(s): G93.40 - Encephalopathy, unspecified (2) UTI (urinary tract infection): Status: Acute Category: Medical Code(s): N39.0 - Urinary tract infection, site not specified (3) C. difficile colitis: Status: Acute Category: Medical Code(s): A04.72 - Enterocolitis due to Clostridium difficile, not specified as recurrent (4) Parkinsonian syndrome: Problem Comment: Differential diagnosis: Vascular parkinsonism, Parkinson plus, (PSP) patient has frequent falls, Lewy body disease, parkinsonian features with memory loss. 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 Status: Chronic Qualifiers: Laterality: unspecified laterality Lung location: unspecified part of lung Qualified Code(s): C34.90 - Malignant neoplasm of unspecified part of unspecified bronchus or lung Category: Medical Code(s): C34.90 - Malignant neoplasm of unspecified part of unspecified bronchus or lung Plan 79-year-old female who presented to the ER via EMS after being found on the floor and hitting her life alert button. On workup in the ER, concern for UTI and C. difficile along with encephalopathy. Discussed case with ER physician, request admission for further treatment and management. I agreed to admit for further management. Therapy is evaluated, recommend placement given her weakness and instability. Will continue with IV and oral antibiotics for her infections pending urine cultures. Necessitating inpatient admission, anticipate DC tomorrow. Problems addressed as follows: Encephalopathy, Resolved -Multifactorial, concern for component of mild cognitive impairment with superimposed infection. Monitor for improvement with treatment of underlying infections. UTI JACOBY - Urine grossly abnormal with positive nitrate, positive leuk esterase, 5-10 white cells and 4+ bacteria. continue 1 g ceftriaxone q24hr, urine culture pending. - BUN elevated 19, Cr 0.5, improving. Repeat CBC, CMP, magnesium ordered for the morning. C. difficile diarrhea -Stool panel positive for C. difficile. Continue vancomycin 125 mg p.o. 4 times a day for 10 days, day 2 Hypertension: resume home BP meds with bisoprolol 5mg daily, amlodipine 2.5mg daily. Parkinsonism: Continue carbidopa/levodopa 2 tablets TID per home regimen Continue Plavix 75 mg daily for CAD Hold statin Therapy evaluated, patient weak and debilitated, not safe to discharge home by herself. Recommend consideration for placement if does not have family or caregiver with her 12/11. Will consult case management to assist with dispo planning. further discussion with family today at bedside, looking at having caregiver 12/11 with her Full code Regular diet
[2024-02-15] MEDS: CEFTRIAXONE 1 GM 1 GM in 0.9 % SODIUM CHLORIDE 50 ML IV (13:31)
[2024-02-15 16:00] VITALS: BP 152/71; PULSE 75; RESP 19; TEMP 36.6; O2SAT 97
[2024-02-15] MEDS: BISOPROLOL 5MG TABLET 5 MG PO (16:07)
[2024-02-15] MEDS: AMLODIPINE 2.5MG TABLET 2.5 MG PO (16:07)
--- NOTE | 2024-02-15 18:16 | PC.NURSE ---
Pt alert to self and is intermittently confused. Pt has been getting up to bathroom with assist x2 and has had multiple loose bowel movements. She had one episode of vomiting after taking a potassium pill. Family has been at bedside most of day. Pt son voiced to me that he thinks that it is best if his mom were to go to short term rehab before coming home, MD aware. Pt resting in bed comfortably with no complaints at this time.
[2024-02-15 19:49] VITALS: BP 140/82; PULSE 69; RESP 16; TEMP 37.1; O2SAT 97
[2024-02-16 04:00] VITALS: BP 138/76; PULSE 66; RESP 17; TEMP 37; O2SAT 98; BMI 22.5
--- NOTE | 2024-02-16 05:12 | PC.NURSE ---
Patient has had a decent night. She did have 1 BM. She ate cookies and milk for her snack and did well with it. Patient is alert to self and place but does at times get confused with what time of day it is. no other complaints
[2024-02-16 07:41] LABS: Basophils % 0.9 % (0.1-2.0); Hematocrit 31.5 % (37.0-47.0); Hemoglobin 11.1 g/dL (12.2-16.2); Lymphocytes # 0.8 K/mm3 (0.7-4.5); Lymphocytes % 32.3 % (10-50); Mean Corpuscular HGB Conc 35.3 g/dL (31.8-35.4); Mean Corpuscular Hemoglobin 32.4 pg (27.0-31.2); Mean Corpuscular Volume 91.8 fl (81-99); Mean Platelet Volume 8.5 fl (7.4-10.4); Monocytes # 0.3 K/mm3 (0.1-1.0); Monocytes % 10.9 % (1.7-9.3); Neutrophils # 1.3 K/mm3 (1.8-7.8); Platelet Count 204 K/mm3 (142-424); Red Blood Count 3.43 M/mm3 (4.20-5.40); Red Cell Distribution Width 13.8 % (11.5-17.5); White Blood Count 2.3 K/mm3 (4.8-10.8)
[2024-02-16 07:47] LABS: Chloride 104 mmol/L (98-107); Potassium 3.7 mmoL/L (3.5-5.1); Sodium 131 mmol/L (136-145)
[2024-02-16 07:50] LABS: Alanine Aminotransferase 10 U/L (12-78); Albumin/Globulin Ratio 1.5 (1.1-1.8); Alkaline Phosphatase 63 U/L (38-126); Anion Gap 4.7 mEq/L (5-15); Aspartate Amino Transferase 40 U/L (14-36); Bilirubin,Total 0.5 mg/dl (0.2-1.3); Blood Urea Nitrogen 17 mg/dl (7-17); Calcium 8.1 mg/dl (8.4-10.2); Carbon Dioxide 26 mmol/L (22.0-30.0); Creatinine Clearance Estimated 37 mL/min (50-200); Estimated Glomerular Filt Rate 96 ml/min (>60); GFR (African American) 116 ML/MIN (>60); Glucose 108 mg/dl (74-100)
[2024-02-16 08:00] VITALS: BP 136/64; PULSE 66; RESP 18; TEMP 37.1; O2SAT 96
[2024-02-16] MEDS: VANCOMYCIN HCL 50MG/ML 150ML KIT 125 MG PO ×3 (08:32→16:57)
[2024-02-16] MEDS: BISOPROLOL 5MG TABLET 5 MG PO (08:32)
[2024-02-16] MEDS: CARBIDOPA/LEVODOPA 25/100MG TABLET 2 EACH PO ×2 (08:32→12:14)
[2024-02-16] MEDS: DULOXETINE 30MG CAPSULE.DR 60 MG PO (08:32)
[2024-02-16] MEDS: FAMOTIDINE 20MG TABLET 20 MG PO (08:32)
[2024-02-16] MEDS: CLOPIDOGREL 75MG TAB 75 MG PO (08:32)
[2024-02-16] MEDS: AMLODIPINE 2.5MG TABLET 2.5 MG PO (08:32)
[2024-02-16] MEDS: CEFTRIAXONE 1 GM 1 GM in 0.9 % SODIUM CHLORIDE 50 ML IV (12:14)
--- NOTE | 2024-02-16 13:40 | EXP.ACUTE.PN ---
Subjective *Date: 02/16/24 *Time: 13:40 Interval history: Pleasant on exam this morning. In bedside chair. Continues to require assistance to ambulate and for ADLs. Continues to have diarrhea but slowing in volume and frequency. Afebrile. On room air. Tolerating p.o. intake. Oriented to self. Does not recall discussion yesterday between her son, her, and myself at bedside. Informed her that we had decided on rehab. She stated she was going to go live with her son in [place]. Explained that we had had this discussion yesterday and they recommend rehab first. She was agreeable. Medical Exam Vital signs and Labs for Last 24 Hours: Vital Signs Temp Pulse Resp BP Pulse Ox O2 Del Method 02/16/24 13:00 Room Air 02/16/24 11:00 Room Air 02/16/24 09:00 Room Air 02/16/24 08:00 Room Air 02/16/24 08:00 98.8 F 66 18 136/64 96 Room Air 02/16/24 06:45 Room Air 02/16/24 05:00 Room Air 02/16/24 04:00 98.6 F 66 17 138/76 98 Room Air 02/16/24 03:00 Room Air 02/16/24 01:00 Room Air 02/15/24 23:00 Room Air 02/15/24 21:00 Room Air 02/15/24 20:00 Room Air 02/15/24 19:49 98.7 F 69 16 140/82 97 Room Air 02/15/24 18:21 Room Air 02/15/24 17:00 Room Air 02/15/24 16:00 97.8 F 75 19 152/71 H 97 Room Air 02/15/24 15:00 Room Air Intake and Output 02/15/24 02/16/24 02/16/24 23:59 07:59 15:59 Intake Total 100 / 610 150 / 360 210 / 360 Output Total 0 / 0 0 / 0 0 / 0 Balance 100 / 610 150 / 360 210 / 360 Intake: Intake, Oral Amount 100 / 610 150 / 360 210 / 360 Output: Output, Urine Amount 0 / 0 0 / 0 0 / 0 Other: Number of Unmeasured Voids 1 1 1 Number of Bowel Movements 1 1 1 Weight 51.982 kg Patient Weight 02/16/24 23:59 Weight 51.982 kg Laboratory Results - last 24 hr 02/16/24 06:51: WBC 2.3 L D, RBC 3.43 L, Hgb 11.1 L, Hct 31.5 L, MCV 91.8, MCH 32.4 H, MCHC 35.3, RDW 13.8, Plt Count 204, MPV 8.5, Neut % (Auto) 55.0, Lymph % (Auto) 32.3, [place]a % (Auto) 10.9 H, Eos % (Auto) 1.0, Baso % (Auto) 0.9, Neut # (Auto) 1.3 L, Lymph # (Auto) 0.8, Mora # (Auto) 0.3, Eos # (Auto) 0.0, Baso # (Auto) 0.0, Sodium 131 L, Potassium 3.7 D, Chloride 104, Carbon Dioxide 26, Anion Gap 4.7 L, BUN 17, Creatinine 0.60, Estimated Creat Clear 37, Estimated GFR 96, Est GFR ( Amer) 116, Glucose 108 H, Calcium 8.1 L, Total Bilirubin 0.5, AST 40 H D, ALT 10 L D, Alkaline Phosphatase 63, Total Protein 5.0 L, Albumin 3.0 L, Globulin 2.0, Albumin/Globulin Ratio 1.5 I & O for Labs for Last 24 Hours: Intake & Output 02/13/24 02/14/24 02/15/24 02/16/24 23:59 23:59 23:59 23:59 Intake Total 1782 / 1782 460 / 610 360 / 360 Output Total 0 / 0 0 / 0 0 / 0 Balance 178 / 1782 460 / 610 360 / 360 Weight 54.431 kg 50.167 kg 51.982 kg Microbiology Reports for the Last 24 Hours: Microbiology 02/14/24 13:15 Blood Blood Culture - Preliminary NO GROWTH AFTER 48 HOURS 02/14/24 12:15 Urine,Clean Catch Urine Culture - Final Klebsiella pneumoniae Constitutional: Present no acute distress, thin and cooperative Head: Present atraumatic and normocephalic ENT: Present normal exam Respiratory: Present normal respiratory effort; Absent respiratory distress, rhonchi, stridor, wheezes or crackles Cardiac: Present Reg Rate and Rhythm GI: Present soft and normal bowel sounds; Absent distention or tenderness Extremities: Present normal inspection and full ROM Skin: Present intact; Absent erythema Neuro: Present Grossly Intact, alert, awake and moves all extremities Comment:: oriented to self and place Assessment and Plan *Assessment and plan (1) Encephalopathy: Status: Acute Category: Medical Code(s): G93.40 - Encephalopathy, unspecified (2) UTI (urinary tract infection): Status: Acute Category: Medical Code(s): N39.0 - Urinary tract infection, site not specified (3) C. difficile colitis: Status: Acute Category: Medical Code(s): A04.72 - Enterocolitis due to Clostridium difficile, not specified as recurrent (4) Parkinsonian syndrome: Problem Comment: Differential diagnosis: Vascular parkinsonism, Parkinson plus, (PSP) patient has frequent falls, Lewy body disease, parkinsonian features with memory loss. 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 Status: Chronic Qualifiers: Laterality: unspecified laterality Lung location: unspecified part of lung Qualified Code(s): C34.90 - Malignant neoplasm of unspecified part of unspecified bronchus or lung Category: Medical Code(s): C34.90 - Malignant neoplasm of unspecified part of unspecified bronchus or lung Plan 79-year-old female who presented to the ER via EMS after being found on the floor and hitting her life alert button. On workup in the ER, concern for UTI and C. difficile along with encephalopathy. Discussed case with ER physician, request admission for further treatment and management. I agreed to admit for further management. Evaluated by therapy, recommend placement. Continuing IV and oral antibiotics for her infections. Awaiting placement to rehab. Problems addressed as follows: Encephalopathy, Resolved Mild cognitive impairment -Multifactorial, concern for component of mild cognitive impairment with superimposed infection. Monitor for improvement with treatment of underlying infections. UTI JACOBY -Urine grew Klebsiella, sensitive to cephalosporins and fluoroquinolones. continue 1 g ceftriaxone q24hr for at least 5 days. Will consider transitioning to oral if still needs coverage at time of discharge to rehab -BUN 17, creatinine 0.6. White count 2.3. Repeat CBC, CMP, magnesium ordered for the morning. C. difficile diarrhea -Stool panel positive for C. difficile. Continue vancomycin 125 mg p.o. 4 times a day for 10 days, day 3/ Hypertension: Continue bisoprolol 5mg daily, amlodipine 2.5mg daily. Parkinsonism: Continue carbidopa/levodopa 2 tablets TID per home regimen Continue Plavix 75 mg daily for CAD Hold statin Evaluated by therapy, recommend rehab. Discussion with son yesterday at bedside, would like to pursue [facility] if she has been there before. Patient agreeable. Full code Regular diet
[2024-02-16 16:00] VITALS: BP 147/72; PULSE 75; RESP 18; TEMP 36.8; O2SAT 99
--- NOTE | 2024-02-16 17:38 | PC.NURSE ---
Pt alert only to self, is pleasantly confused at baseline but has been more anxious towards the end of this shift wanting to go home. Pt was trying to get out of bed without asking for assistance. Family is now sitting with pt in room. Bed alarm on. Pt had a few episode of diarrhea this shift. tolerating meals well. Now resting comfortably in bed.
[2024-02-16 20:00] VITALS: BP 157/77; PULSE 78; RESP 17; TEMP 36.6; O2SAT 98
[2024-02-16] MEDS: OLANZapine 10 MG VIAL 5 MG IM (20:30)
--- NOTE | 2024-02-16 20:42 | PC.NURSE ---
Addendum entered by Jose Farah RN 02/16/24 23:15: Since earlier episode between 2044 to current 2314 patient has been pleasantly confused to self, no behavior issues and remains in a good mood, ambulating to the toilet with standby assist, and intermittently napping. Original Note: between [id number] patient was very agitated and confused, wandering the hallways looking for the stairs thinking she was at the neighbors house, calling Crystal her caregiver on her personal cell phone telling her to call the waste water operator, told Jose FOLEY i'm going to smack you in face , telling staff we better not tell her she is in the hospital anymore, etc - Hospitalist notified and ordered medications - at first was able to redirect and deescalate the situation temporarily, but then patient was repeating the same scenario within 5 minutes - administered medication per MAR - patient in room, resting peacefully in bed at 2044 scrolling on her cell phone. Staff members present during this situation was Nixon Garcia [place], Candace, Bailey, and Rosa Isela.
--- NOTE | 2024-02-17 01:21 | PC.NURSE ---
Addendum entered by Orin Bowman RN 02/17/24 04:57: Since taking over care the patient has rested well. RN was told by RN before that the patient was agitated, confused, walking in the halls patient has not done that since this RN came on shift. Original Note: Took over care at 1am from Becky Farah. Patient is asleep in bed resting comfortably. Agree with previous body artist
[2024-02-17 04:00] VITALS: BP 137/70; PULSE 53; RESP 16; TEMP 36.7; O2SAT 96; BMI 22.2
[2024-02-17 07:15] LABS: Albumin Level 2.7 g/dl (3.5-5.0); Chloride 101 mmol/L (98-107); Potassium 3.1 mmoL/L (3.5-5.1); Sodium 132 mmol/L (136-145)
[2024-02-17 07:18] LABS: Alanine Aminotransferase 15 U/L (12-78); Albumin/Globulin Ratio 1.3 (1.1-1.8); Alkaline Phosphatase 63 U/L (38-126); Anion Gap 6.1 mEq/L (5-15); Aspartate Amino Transferase 34 U/L (14-36); Bilirubin,Total 0.5 mg/dl (0.2-1.3); Blood Urea Nitrogen 12 mg/dl (7-17); Carbon Dioxide 28 mmol/L (22.0-30.0); Creatinine Clearance Estimated 36 mL/min (50-200); Estimated Glomerular Filt Rate 96 ml/min (>60); GFR (African American) 116 ML/MIN (>60); Globulin 2.1 g/dL (1.3-3.2); Total Protein,Serum 4.8 g/dl (6.3-8.2)
[2024-02-17 07:19] LABS: Glucose 98 mg/dl (74-100)
[2024-02-17 08:00] VITALS: BP 148/73; PULSE 61; RESP 18; TEMP 37; O2SAT 96
--- NOTE | 2024-02-17 08:56 | SW/DCPLANNER ---
Addendum entered by Olivia Valencia 02/17/24 13:34: Savanna w/ [facility] stated that she will be starting precert today. Addendum entered by Olivia Valencia 02/17/24 12:55: Patient/family prefer to go to [facility] under private pay rate. [facility]/ [facility] will be onsite to speak w/ patient and family this afternoon. Chary is aware that patient is medically stable for discharge. Original Note: I spoke w/ this patient regarding plans once medically stable for discharge. PT/OT evaluated patient and recommended SNF level of care. Patient, son and MD did have discussions over the weekend regarding placement. Patient is agreeable to placement and prefers [facility]. Patient information has been faxed to [facility]/ [facility] this AM. I will follow up once information is reviewed.
[2024-02-17] MEDS: FAMOTIDINE 20MG TABLET 20 MG PO (09:16)
[2024-02-17] MEDS: VANCOMYCIN HCL 50MG/ML 150ML KIT 125 MG PO ×3 (09:16→16:41)
[2024-02-17] MEDS: CARBIDOPA/LEVODOPA 25/100MG TABLET 2 EACH PO ×2 (09:16→13:33)
[2024-02-17] MEDS: CLOPIDOGREL 75MG TAB 75 MG PO (09:16)
[2024-02-17] MEDS: DULOXETINE 30MG CAPSULE.DR 60 MG PO (09:16)
[2024-02-17] MEDS: AMLODIPINE 2.5MG TABLET 2.5 MG PO (09:16)
[2024-02-17] MEDS: BISOPROLOL 5MG TABLET 5 MG PO (09:16)
--- NOTE | 2024-02-17 09:30 | EXP.PHA.PN ---
Subjective *Date: 02/17/24 *Time: 09:30 Medical Exam Vital signs and Labs for Last 24 Hours: Vital Signs Temp Pulse Resp BP Pulse Ox O2 Del Method 02/17/24 08:00 98.6 F 61 18 148/73 H 96 Room Air 02/17/24 06:54 Room Air 02/17/24 04:56 Room Air 02/17/24 04:00 98.0 F 53 L 16 137/70 96 Room Air 02/17/24 03:00 Room Air 02/17/24 00:48 Room Air 02/16/24 23:00 Room Air 02/16/24 21:00 Room Air 02/16/24 20:00 97.8 F 78 17 157/77 H 98 Room Air 02/16/24 19:53 Room Air 02/16/24 18:34 Room Air 02/16/24 17:00 Room Air 02/16/24 16:00 98.3 F 75 18 147/72 H 99 Room Air 02/16/24 15:00 Room Air 02/16/24 13:00 Room Air 02/16/24 11:00 Room Air Intake and Output 02/16/24 02/17/24 02/17/24 23:59 07:59 15:59 Intake Total 300 / 1140 240 / 240 Output Total 0 / 0 Balance 300 / 1140 240 / 240 Intake: Intake, Oral Amount 300 / 1140 240 / 240 Output: Output, Urine Amount 0 / 0 Other: Number of Unmeasured Voids 1 Weight 51.437 kg Patient Weight 02/17/24 23:59 Weight 51.437 kg Laboratory Results - last 24 hr 02/17/24 06:01: Sodium 132 L, Potassium 3.1 L, Chloride 101, Carbon Dioxide 28, Anion Gap 6.1, BUN 12 D, Creatinine 0.60, Estimated Creat Clear 36, Estimated GFR 96, Est GFR ( Amer) 116, Glucose 98, Calcium 8.0 L, Total Bilirubin 0.5, AST 34, ALT 15 D, Alkaline Phosphatase 63, Total Protein 4.8 L, Albumin 2.7 L, Globulin 2.1, Albumin/Globulin Ratio 1.3 I & O for Labs for Last 24 Hours: Intake & Output 02/14/24 02/15/24 02/16/24 02/17/24 23:59 23:59 23:59 23:59 Intake Total 1782 / 1782 460 / 610 1140 / 1140 240 / 240 Output Total 0 / 0 0 / 0 0 / 0 Balance 1781 460 / 610 1140 / 1140 240 / 240 Weight 54.431 kg 50.167 kg 51.982 kg 51.437 kg Microbiology Reports for the Last 24 Hours: Microbiology 02/14/24 13:15 Blood Blood Culture - Preliminary NO GROWTH AFTER 48 HOURS 02/14/24 12:15 Urine,Clean Catch Urine Culture - Final Klebsiella pneumoniae The patient's infection will respond to the chosen ABx?: Yes Is the patient receiving the right drug, dose, and route?: Yes Could a more targeted ABx be ordered?: No (AFEBRILE, WBC 2.3K, KLEBSIELLA PNA S+ TO ROCEPHIN)
--- NOTE | 2024-02-17 10:44 | EXP.ACUTE.PN ---
Subjective *Date: 02/17/24 *Time: 10:44 Medical Exam Vital signs and Labs for Last 24 Hours: Vital Signs Temp Pulse Resp BP Pulse Ox O2 Del Method 02/17/24 08:00 98.6 F 61 18 148/73 H 96 Room Air 02/17/24 06:54 Room Air 02/17/24 04:56 Room Air 02/17/24 04:00 98.0 F 53 L 16 137/70 96 Room Air 02/17/24 03:00 Room Air 02/17/24 00:48 Room Air 02/16/24 23:00 Room Air 02/16/24 21:00 Room Air 02/16/24 20:00 97.8 F 78 17 157/77 H 98 Room Air 02/16/24 19:53 Room Air 02/16/24 18:34 Room Air 02/16/24 17:00 Room Air 02/16/24 16:00 98.3 F 75 18 147/72 H 99 Room Air 02/16/24 15:00 Room Air 02/16/24 13:00 Room Air 02/16/24 11:00 Room Air Intake and Output 02/16/24 02/17/24 02/17/24 23:59 07:59 15:59 Intake Total 300 / 1140 240 / 240 Output Total 0 / 0 Balance 300 / 1140 240 / 240 Intake: Intake, Oral Amount 300 / 1140 240 / 240 Output: Output, Urine Amount 0 / 0 Other: Number of Unmeasured Voids 1 Weight 51.437 kg Patient Weight 02/17/24 23:59 Weight 51.437 kg Laboratory Results - last 24 hr 02/17/24 06:01: Sodium 132 L, Potassium 3.1 L, Chloride 101, Carbon Dioxide 28, Anion Gap 6.1, BUN 12 D, Creatinine 0.60, Estimated Creat Clear 36, Estimated GFR 96, Est GFR ( Amer) 116, Glucose 98, Calcium 8.0 L, Total Bilirubin 0.5, AST 34, ALT 15 D, Alkaline Phosphatase 63, Total Protein 4.8 L, Albumin 2.7 L, Globulin 2.1, Albumin/Globulin Ratio 1.3 I & O for Labs for Last 24 Hours: Intake & Output 02/14/24 02/15/24 02/16/24 02/17/24 23:59 23:59 23:59 23:59 Intake Total 1782 / 1782 460 / 610 1140 / 1140 240 / 240 Output Total 0 / 0 0 / 0 0 / 0 Balance 1781 460 / 610 1140 / 1140 240 / 240 Weight 54.431 kg 50.167 kg 51.982 kg 51.437 kg Microbiology Reports for the Last 24 Hours: Microbiology 02/14/24 13:15 Blood Blood Culture - Preliminary NO GROWTH AFTER 48 HOURS 02/14/24 12:15 Urine,Clean Catch Urine Culture - Final Klebsiella pneumoniae
[2024-02-17] MEDS: CEFTRIAXONE 1 GM 1 GM in 0.9 % SODIUM CHLORIDE 50 ML IV (13:33)
[2024-02-17 13:34] VITALS: BMI 22.2
--- NOTE | 2024-02-17 14:26 | SW/DCPLANNER ---
Addendum entered by Olivia Valencia 02/17/24 15:49: Chary stated that she can accept this patient under private pay and patient/family are agreeable. Per MD patient will discharge to [facility] today. Original Note: I spoke w/ patient and her family regarding plans once medically stable for discharge. PT/OT evaluated patient and recommended home w/ family 12/11 and home health VS placement. Patient/family are interested in placement at [facility]. I explained to patient, son and daughter in law that due to being in OBS status placement would require private pay. Son is agreeable to placement under private pay. Patient information has been faxed to Chary w/ [facility]. Chary will be onsite to evaluate patient and speak w/ family at 3PM today. I will follow up once [facility] evaluates patient.
[2024-02-17 16:00] VITALS: BP 124/71; PULSE 72; RESP 20; TEMP 36.8; O2SAT 99
--- NOTE | 2024-02-17 16:04 | P.DS_ITS ---
General Admission date:: 02/14/24 Discharge date: 02/17/24 HPI HPI HPI: 79-year-old female who was brought in by EMS after pushing her life alert at 930 this morning. She has a history of parkinsonian syndrome, anxiety, hypertension, lung cancer. Appeared more confused per family. States she has been having loose watery diarrhea. Worse over the past few days. Unsure how she got to the ER. On evaluation, denies nausea or vomiting. Thinks she fell out of bed at some point in the night. States she woke up covered with stool. Been having some urinary incontinence. Does feel mildly confused per her re port. Workup in the ER with Normal white count at 6.8, kidney function with creatinine 0.6 but BUN elevated 25. Stool obtained showing C. difficile. Urine grossly abnormal. Medicine consulted for admission for treatment of C. difficile and UTI. Relation, patient is pleasant but does appear confused. Answers are tangential to questions. I had to leave the room during interview and when I came back and, it was unclear if she recognized me from having just been in the room. Was surprised I pronounced her name correctly which I did not do the first time we spoke. Strong concern for altered mental status/encephalopathy. Patient quite weak. Has been evaluated by therapy already while in the ER, recommend placement. Hospital Course Hospital Course Hospital Course: 79-year-old female who presented to the ER via EMS after being found on the floor and hitting her life alert button. On workup in the ER, concern for UTI and C. difficile along with encephalopathy. Discussed case with ER physician, request admission for further treatment and management. I agreed to admit for further management. Evaluated by therapy, recommend placement. Treated with IV ceftriaxone for UTI and oral vancomycin for C. difficile. Tolerating p.o. intake. Necessitating placement. Accepted to [facility]. Stable to discharge. Problems addressed as follows: Encephalopathy, Resolving Mild cognitive impairment -Multifactorial, concern for component of mild cognitive impairment with superimposed infection. Monitor for improvement with treatment of underlying infections. Would benefit from Mini-Mental exam or formal evaluation in the coming weeks as infections resolved. UTI JACOBY -Urine grew Klebsiella, sensitive to cephalosporins and fluoroquinolones. Completed 4 days of ceftriaxone. Will administer single dose of levofloxacin on 02/17 to complete 5 days total of antibiotics. Kidney function remains normal with BUN 12, creatinine 0.6. Would benefit from repeat CBC, CMP, magnesium in 1 week. C. difficile diarrhea: Stool panel positive for C. difficile. Continue vancomycin 125 mg p.o. 4 times a day for 10 days. Continue p.o. vancomycin. Last dose due after second dose on 02/23/2024. Diarrhea decreasing in frequency. Hypertension: Continue bisoprolol 5mg daily, amlodipine 2.5mg daily. Parkinsonism: Continue carbidopa/levodopa 2 tablets TID per home regimen Continue Plavix 75 mg daily for CAD Hold statin Evaluated by therapy, recommend rehab. Graciously excepted by [facility] for further management. Patient stable to discharge to rehab for further care. Total time spent on discharge 32 minutes in counseling, documentation, chart review, and direct care with patient. Exam Data for Last 24 hours Vital signs and Labs for Last 24 Hours: Temp Pulse Resp BP Pulse Ox O2 Del Method 98.3 F 72 20 124/71 99 Room Air 02/17/24 16:00 02/17/24 16:00 02/17/24 16:00 02/17/24 16:00 02/17/24 16:00 02/17/24 16:00 Laboratory Results - last 24 hr 02/17/24 06:01: Sodium 132 L, Potassium 3.1 L, Chloride 101, Carbon Dioxide 28, Anion Gap 6.1, BUN 12 D, Creatinine 0.60, Estimated Creat Clear 36, Estimated GFR 96, Est GFR ( Amer) 116, Glucose 98, Calcium 8.0 L, Total Bilirubin 0.5, AST 34, ALT 15 D, Alkaline Phosphatase 63, Total Protein 4.8 L, Albumin 2.7 L, Globulin 2.1, Albumin/Globulin Ratio 1.3 I & O for Last 24 hours: Intake & Output 02/14/24 02/15/24 02/16/24 02/17/24 23:59 23:59 23:59 23:59 Intake Total 1781 460 / 610 1140 / 1140 390 / 390 Output Total 0 / 0 0 / 0 0 / 0 0 / 0 Balance 1781 460 / 610 1140 / 1140 390 / 390 Weight 54.431 kg 50.167 kg 51.982 kg 51.43 kg Microbiology Reports for the Last 24 Hours: Microbiology 02/14/24 13:15 Blood Blood Culture - Preliminary NO GROWTH AFTER 48 HOURS Constitutional Constitutional: no acute distress, thin and cooperative *Routine HEENT Exam Head: Present normocephalic and atraumatic Eye: Present EOMI and PERRL ENT: Present mucous membranes moist and external ear normal *Routine Neck Exam Neck: Present supple and trachea midline; Absent lymphadenopathy *Routine Respiratory Exam Respiratory: Present CTA bilaterally and symmetric chest movement; Absent respiratory distress, stridor, wheezes or crackles *Routine Cardiovascular Exam Cardiovascular: Present RRR, Normal S1 and Normal S2 *Routine Abdominal Exam Abdominal: Present soft and normoactive bowel sounds; Absent tenderness *Routine Rectal Exam Patient deferred: visual exam *Routine Exam Patient deferred: external exam *Routine Extremities Exam Extremities: Present full ROM, pulses intact and normal capillary refill; Absent edema *Routine Skin Exam Skin: Present warm; Absent rash *Routine Neurological Exam Neurological: Present alert, moving all extremities, vision grossly intact and normal speech; Absent sensory deficit, motor deficit or hearing grossly intact Comments: Oriented to self, reminded regularly she is at the hospital. Disoriented today and time. Short-term memory recall deficits Routine Psychiatric Exam Psychiatric: Present normal affect, normal thought process and cooperative Results Data Completed and Pending Labs on day of discharge: Labs from last 24 hours 02/17/24 06:01 Sodium 132 L Potassium 3.1 L Chloride 101 Carbon Dioxide 28 Anion Gap 6.1 BUN 12 D Creatinine 0.60 Estimated Creat Clear 36 Estimated GFR 96 Est GFR ( Amer) 116 Glucose 98 Calcium 8.0 L Total Bilirubin 0.5 AST 34 ALT 15 D Alkaline Phosphatase 63 Total Protein 4.8 L Albumin 2.7 L Globulin 2.1 Albumin/Globulin Ratio 1.3 Preliminary micro results at discharge 02/14/24 13:15 Blood Culture - Preliminary Blood NO GROWTH AFTER 48 HOURS DS: Diagnosis Discharge Diagnosis (1) Encephalopathy: Status: Acute Code(s): G93.40 - Encephalopathy, unspecified (2) UTI (urinary tract infection): Status: Acute Code(s): N39.0 - Urinary tract infection, site not specified (3) C. 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 (5) Hypertension: Status: Chronic Code(s): I10 - Essential (primary) hypertension Qualifiers: Hypertension type: primary hypertension Qualified Code(s): I10 - Essential (primary) hypertension (6) Lung cancer: Status: Chronic Code(s): C34.90 - Malignant neoplasm of unspecified part of unspecified bronchus or lung Qualifiers: Laterality: unspecified laterality Lung location: unspecified part of lung Qualified Code(s): C34.90 - Malignant neoplasm of unspecified part of unspecified bronchus or lung Problem details: Abnormal PET scan, left lung lower lobe nodule consistent with malignancy. Meds Home Medications and Allergies Home Medications ?Medication ?Instructions ?Recorded ?Confirmed ?Type duloxetine 60 mg capsule,delayed 60 mg PO DAILY 30 days #30 caps 10/22/23 02/14/24 Rx release amlodipine 2.5 mg tablet 2.5 mg PO DAILY 30 days #30 tabs 11/28/23 02/14/24 Rx famotidine 20 mg tablet 20 mg PO DAILY 30 days #30 tabs 11/28/23 02/14/24 Rx potassium chloride 20 mEq 20 meq PO DAILY 30 days #30 tabs 11/28/23 02/14/24 Rx tablet,extended release bisoprolol fumarate 5 mg tablet 5 mg PO DAILY 02/14/24 02/14/24 History carbidopa 25 mg-levodopa 100 mg 2 tab PO TID 02/14/24 02/14/24 History tablet clopidogrel 75 mg tablet 75 mg PO DAILY 02/14/24 02/14/24 History simvastatin 40 mg tablet 40 mg PO HS 02/14/24 02/14/24 History levofloxacin 750 mg tablet 750 mg PO DAILY 1 day #1 tab 02/17/24 Rx vancomycin 50 mg/mL oral solution 125 mg (2.5 mL) PO QID 6 days #60 02/17/24 Rx (Firvanq) mL New Prescriptions to Start Prescriptions: levofloxacin Adams De La Cruz vancomycin [Firvanq] [facility] De [facility] Allergies Allergy/AdvReac Type Severity Reaction Status Date / Time No Known Allergies Allergy Verified 10/29/23 07:42 Discharge Plan Disposition Patient Disposition: Xfer SNF Condition: Good Discharge Order Discharge Orders: Discharge Order (Routine); Ordered 02/17/24 Ordered By: Adams De La Cruz Follow up Plan Prescriptions/Medication Reconciliation: New vancomycin [Firvanq] 50 mg/mL Recon Soln 125 mg PO QID 6 Days Qty: 60 0RF levofloxacin 750 mg tablet 750 mg PO DAILY 1 Days Qty: 1 0RF Rx Instructions: administer on 02/18/24 Continued duloxetine 60 mg capsule,delayed release(DR/EC) 60 mg PO DAILY 30 Days Qty: 30 2RF potassium chloride 20 mEq tablet extended release 20 meq PO DAILY 30 Days Qty: 30 2RF famotidine 20 mg tablet 20 mg PO DAILY 30 Days Qty: 30 2RF amlodipine 2.5 mg tablet 2.5 mg PO DAILY 30 Days Qty: 30 2RF clopidogrel 75 mg tablet 75 mg PO DAILY simvastatin 40 mg tablet 40 mg PO HS bisoprolol fumarate 5 mg tablet 5 mg PO DAILY carbidopa-levodopa 25-100 mg tablet 2 tab PO TID Problem Reconciliation Problems Reviewed?: Yes Patient Discharge Instructions ACTIVITY: Continue current activity DIET: continue same diet Patient Instructions: DI for Urinary Tract Infection (UTI), DI for Colitis, Clostridium difficile Infection Print Language: Kinyarwanda Providers Primary Care Provider: Donald Castellanos Admit Provider: Adams De La Cruz Attending Provider: Adams De La Cruz
== END 2024-02-17 16:43 ==
LOC: ER 12:57 → 2ND 14:43
PROVIDERS: Admitting Provider Internal Medicine Adolescent Medicine; Emergency Provider Student in an Organized Health Care Education/Training Program; PCP Family Medicine; Visit Provider Internal Medicine Adolescent Medicine
DX: G93.40 Encephalopathy, unspecified (principal); N39.0 Urinary tract infection, site not specified; A04.72 Enterocolitis due to Clostridium difficile, not specified as recurrent; G21.4 Vascular parkinsonism; I10 Essential (primary) hypertension; C34.90 Malignant neoplasm of unspecified part of unspecified bronchus or lung; Z60.2 Problems related to living alone; Z79.899 Other long term (current) drug therapy; N17.9 Acute kidney failure, unspecified; B96.1 Klebsiella pneumoniae [K. pneumoniae] as the cause of diseases classified elsewhere
CPT/HCPCS: 36415; 70450; 71046; 80048; 80053; 81001; 82550; 83605; 83735; 84484; 85007; 85025; 85027; 86803; 87040; 87086; 87088; 87186; 87389; 87507; 93005; 97116; 97165; 97530; 99285; G0378; J0696; J3475; J7120